=== PATIENT | female | born 1940 | race African-American/Black ===

== ENCOUNTER 2017-03-07 14:23 | Inpatient (IN) | payer MEDICARE, MEDICAID ==
[~2017-03-07] VITALS: Ht 167.6 cm; Wt 61.9 kg
[2017-03-07 15:09] LABS: BASOPHILS % 0.6 % (0.0-2.0); EOSINOPHILS % 0.8 % (0.0-7.0); HEMATOCRIT 43.6 % (37.0-47.0); HEMOGLOBIN 14.3 g/dl (12.0-16.0); LYMPHOCYTES % 27.9 % (15.0-51.0); MEAN CORPUSCULAR HEMOGLOBIN 26.4 pg (29.0-33.0); MEAN CORPUSCULAR HGB CONC 32.8 g/dl (32.0-37.0); MEAN CORPUSCULAR VOLUME 80.6 fl (82.0-101.0); MEAN PLATELET VOLUME 11.5 fl (7.4-10.4); MONOCYTE # 0.3 10^3/ul (0.3-0.9); MONOCYTES % 8.4 % (0.0-11.0); NEUTROPHILS % 62.3 % (39.0-77.0); PLATELET COUNT 156 10^3/UL (140-415); RED BLOOD COUNT 5.41 10^6/ul (4.20-5.40); RED CELL DISTRIBUTION WIDTH 13.6 % (11.5-14.5); WHITE BLOOD COUNT 3.6 10^3/ul (4.8-10.8)
[2017-03-07 15:25] LABS: ANION GAP 14 (8-16); BLOOD UREA NITROGEN 15 mg/dl (7-20); CALCIUM 11.1 mg/dl (8.4-10.2); CARBON DIOXIDE 29 mmol/L (21-31); CHLORIDE 102 mmol/L (97-110); CREATININE 1.06 mg/dl (0.44-1.00); GLUCOSE 138 mg/dl (70-220); INR 0.91; POTASSIUM 4.1 mmol/L (3.5-5.1); PROTIME 12.3 Sec (12.2-14.2); SODIUM 141 mmol/L (135-144)
[2017-03-07 15:26] LABS: PARTIAL THROMBOPLASTIN TIME 29.1 Sec (25.0-35.0)
[2017-03-07 15:37] LABS: TROPONIN-I < 0.012 ng/ml (0.00-0.12)
--- NOTE | 2017-03-07 15:43 | RADRPT ---
PROCEDURE: CT Brain without contrast. CLINICAL INDICATION: Weakness and nonacute stroke TECHNIQUE: A CT of the brain was performed on a [employer] 64-slice CT scanner utilizing axial imaging from the skull base through the vertex without IV contrast. Multiplanar reformatted images were made. Images were reviewed on a PACS workstation. The CTDIvol is 45.01 mGy and the DLP is 720 .23 mGycm. One of the following 3 does reduction techniques were used during this CT examination: 1) Automated exposure control 2) Adjustment of the mA +/- kV according to patient size or 3) Use of iterative reconstruction technique COMPARISON: None available FINDINGS: There is no intracranial hemorrhage, mass effect, or midline shift. No extra-axial fluid collection is seen. The ventricles and sulci are age appropriate. Moderate diffuse volume loss is present. Dec reased attenuation is present in the bilateral centrum semiovale and periventricular white matter co mpatible with moderate chronic microvascular ischemic disease. Mild vascular calcifications are pres ent of the intracranial internal carotid arteries and the vertebral arteries. The visualized scalp and calvarium are normal. The bilateral orbits are normal. The bilateral parana renetta sinuses, mastoid air cells and middle ear cavities are clear. IMPRESSION: 1. No evidence of acute intracranial hemorrhage, infarcts, or acute intracranial pathology. 2. Moderate chronic microvascular ischemic disease and diffuse volume loss. 3. Mild atherosclerotic vascular disease RPTAT: HDC .Samantah Reno MD, MD Date Time Electronically viewed and signed by .Samantha Reno MD, MD on 03/07/2017 15:43 .C/
--- NOTE | 2017-03-07 15:53 | RADRPT ---
PROCEDURE: XR Chest. CLINICAL INDICATION: Dyspnea TECHNIQUE: Single frontal chest x-ray. COMPARISON: None. FINDINGS: No acute infiltrate, pleural effusion or pneumothorax is identified. Cardiomediastinal silhouette i s within normal limits. Aortic atherosclerotic calcification is noted. The osseous structures are r emarkable for degenerative enthesopathy of the spine. IMPRESSION: 1. No evidence of acute cardiopulmonary process. 2. Aortic atherosclerosis. RPTAT: PP .Rivera Alvarado MD, MD Date Time Electronically viewed and signed by .Rivera Alvarado MD, MD on 03/07/2017 15:52 .R/
[2017-03-07] MEDS ORDERED: METF500T4 PO (16:41)
[2017-03-07] MEDS ORDERED: OLME40TA14 PO (16:42)
--- NOTE | 2017-03-07 19:28 | ERA ---
ER Documentation Chief Complaint Date/Time DATE: 03/07/17 TIME: 19:18 Chief Complaint weakness to left leg at 1315 HPI This 77-year-old female is brought in by her daughter via EMS for acute left leg weakness at the same time that she developed confusion. Daughter tried to get her to walk and she could not walk because of the left leg weakness. She feels that his sensory resolved with the daughter still states that she appears somewhat confused. She has had no fevers or chills and denies chest pain shortness of breath. ROS All systems reviewed and are negative except as per history of present illness. Medications Home Meds Reported Medications Olmesartan Medoxomil (Benicar) 40 Mg Tablet, 40 MG PO DAILY, #30 TAB 03/07/17 Metformin Hcl* (Metformin Hcl*) 500 Mg Tablet, 500 MG PO DAILY, #30 TAB 03/07/17 Allergies Allergies: Coded Allergies: No Known Allergy (Unverified , 03/07/17) PMhx/Soc History of Surgery: No Anesthesia Reaction: No Hx 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 Disorder: No Hx Respiratory Disorders: No Hx Cardiac Disorders: Yes (HTN) Hx Psychiatric Problems: No Hx Miscellaneous Medical Probl: Yes (DM) Hx Alcohol Use: No Hx Substance Use: No Hx Tobacco Use: No Smoking Status: Never smoker Physical Exam Vitals Vital Signs Date Time Temp Pulse Resp B/P Pulse Ox O2 Delivery O2 Flow Rate FiO2 03/07/17 14:49 Nasal Cannula 2 03/07/17 14:30 98.5 98 20 163/78 95 Physical Exam Const: [] No acute distress. Head: Atraumatic Eyes: Normal Conjunctiva ENT: Normal External Ears, Nose and Mouth. Neck: Full range of motion..~ No meningismus. Resp: Clear to auscultation bilaterally Cardio: Regular rate and rhythm, no murmurs Abd: Soft, non tender, non distended. Normal bowel sounds Skin: No petechiae or rashes Back: No midline or flank tenderness Ext: No cyanosis, or edema, Distal pulses intact all 4 extremities Neur: Awake and alert and oriented 3, cranial nerves II through XII intact, no cerebellar deficits, normal mental status with ability to remember 3 objects , 5 out of 5 strength all extremities with a NIH stroke scale of 0. Psych: Normal Mood and Affect Result Diagram: 03/07/17 1500 03/07/17 1500 Results 24 hrs Laboratory Tests Test 03/07/17 15:00 White Blood Count 3.610^3/ul Red Blood Count 5.4110^6/ul Hemoglobin 14.3g/dl Hematocrit 43.6% Mean Corpuscular Volume 80.6fl Mean Corpuscular Hemoglobin 26.4pg Mean Corpuscular Hemoglobin Concent 32.8g/dl Red Cell Distribution Width 13.6% Platelet Count 74391^3/UL Mean Platelet Volume 11.5fl Neutrophils % 62.3% Lymphocytes % 27.9% Monocytes % 8.4% Eosinophils % 0.8% Basophils % 0.6% Nucleated Red Blood Cells % 0.0/100WBC Neutrophils # (Manual) 2.210^3/ul Lymphocytes # 1.010^3/ul Monocytes # 0.310^3/ul Eosinophils # 0.010^3/ul Basophils # 0.010^3/ul Nucleated Red Blood Cells # 0.010^3/ul Prothrombin Time 12.3Sec Prothrombin Time Ratio 1.0 INR International Normalized Ratio 0.91 Activated Partial Thromboplast Time 29.1Sec Sodium Level 141mmol/L Potassium Level 4.1mmol/L Chloride Level 102mmol/L Carbon Dioxide Level 29mmol/L Anion Gap 14 Blood Urea Nitrogen 15mg/dl Creatinine 1.06mg/dl Glucose Level 138mg/dl Hemoglobin A1c 6.4% Calcium Level 11.1mg/dl Troponin I < 0.012ng/ml Current Medications Medications (Trade) Dose Ordered Sig/Anisa Route PRN Reason Start Time Stop Time Status Last Admin Dose Admin Ondansetron HCl (Zofran Inj) 4 mg ER BRIDGE PRN IV NAUSEA AND/OR VOMITING 03/07/17 19:30 03/08/17 19:29 Acetaminophen (Tylenol Tab) 650 mg ER BRIDGE PRN PO MILD PAIN/FEVER 03/07/17 19:30 03/08/17 19:29 Procedures/MDM Patient describing symptoms consistent with a TIA. She is stable in the emergency room. Urine is still pending and should be treated for urinary tract infection she has 1 otherwise is currently stable. She will need to be admitted for further neurological workup including MRI which I have already ordered for signs of acute ischemia. Initial CT is negative and the patient was given [address] Hawkins will be admitting to telemetry further monitoring and workup . EKG interpretation: Normal sinus rhythm rate 82, normal axis, no ST or T-wave changes concerning for acute ischemia, normal intervals. Normal EKG except for low voltage electronic device monitor interpretation: Normal sinus rhythm without arrhythmia Chest x-ray interpretation:I see no acute process. I see no widened mediastinum , pneumothorax, no infiltrates, no pulmonary edema, no fractures. CT head interpretation: I see no acute process, see no acute hemorrhage, no mass -effect or midline shift no skull fracture peer Departure Diagnosis: Primary Impression: TIA (transient ischemic attack) Condition: Stable TARAS SHEETS DO Mar 07, 2017 19:28
[2017-03-07] MEDS ORDERED: ONDANSETRON 4 MG INJ IV PRN ×2 (19:30→21:00)
[2017-03-07] MEDS ORDERED: ACETAMINOPHEN 325 MG TAB PO PRN ×2 (19:30→21:00)
[2017-03-07 19:33] LABS: ADD UMIC NO; UR ASCORBIC ACID NEGATIVE (NEGATIVE); UR BILIRUBIN (Dip) NEGATIVE (NEGATIVE); UR BLOOD (Dip) NEGATIVE (NEGATIVE); UR CLARITY CLEAR (CLEAR); UR COLOR YELLOW (YELLOW); UR GLUCOSE (Dip) NEGATIVE (NEGATIVE); UR KETONES (Dip) 1+ mg/dL (NEGATIVE); UR LEUKOCYTE ESTERASE (Dip) NEGATIVE Leu/ul (NEGATIVE); UR NITRITE (Dip) NEGATIVE (NEGATIVE); UR SPECIFIC GRAVITY (Dip) 1.015 (1.003-1.030); UR TOTAL PROTEIN (Dip) NEGATIVE (NEGATIVE); UR UROBILINOGEN (Dip) 2+ mg/dL (NEGATIVE)
[2017-03-07] MEDS ORDERED: ASPIRIN 325 MG TAB PO ONE (20:00)
[2017-03-07] MEDS ORDERED: NACL 0.9% 3 ML SYG IV SCH (21:00)
--- NOTE | 2017-03-07 21:27 | HP ---
Date/Time of Note Date/Time of Note DATE: 03/07/17 TIME: 21:05 Assessment/Plan VTE Prophylaxis VTE Prophylaxis Intervention: SCD's Lines/Catheters IV Catheter Type (from [facility]): [place] [facility] Assessment/Plan Chief Complaint/Hosp Course This is a 77-year-old female being admitted to the telemetry floor for: #1 left leg weakness: Rule out CVA/TIA. CAT scan does not show any acute signs of hemorrhage or infarction. Patient continues to have unsteadiness with her gait. Will order MRI of the brain as well as MRA of the brain and neck without contrast. Will check an echocardiogram with bubble study. Will get a neurology consult. Will check lipid level, and A1c. PT OT and speech evaluation, bedside swallow eval. #2 hypertension: We will allow for permissive hypertension for the first 24 hours. Then resume patient's home medication. #3 diabetes mellitus: Once patient passes swallow study will resume diabetic diet, check hemoglobin A1c, insulin sliding scale #4 dementia: Stable. #5 DVT GI prophylaxis: SCDs, acid natali Further treatment strategy will be implemented as per the clinical course Problems: HPI/ROS Admit Date/Time Admit Date/Time Hx of Present Illness cc: leg weakness, confusion This 77-year-old female is brought in by her daughter via EMS for acute left leg weakness at the same time that she developed confusion. Patient states she was walking while does happen and that she continue to try to walk with her daughter she could not do it because of left leg weakness. She has had no fevers or chills and denies chest pain shortness of breath. Patient was unsteady in her gait when the RNs were helping her to the bathroom. The weakness of the left leg was felt at approximately 1315 on 03/07/1017. allegies: nkda meds: see aug ROS Const: As per HPI Eyes : No pain discharge or redness or change in visual acuity ENT: No pain, sore throat, congestion, congestion, dysphagia or discharge Respiratory: No shortness of breath, cough, sputum, wheezing, or pleuritic pain Cardiovascular: No chest pain, palpitation, PND, or edema GI : no change in appetite, abdominal pain, nausea, vomiting, diarrhea, constipation, or change in the color his stool Genitourinary: No dysuria, hematuria, flank pain , discharge or CVA tenderness Musculoskeletal: No joint pain, back pain, neck pain, restricted range of motion in neck or joints Skin: No rash, bruising or hives Neuro: As per HPI Endocrine: No polyuria, polydipsia, temperature intolerance Psych: No hallucination, depression, anxiety or suicidal ideation PMH/Family/Social Past Medical History Diabetes mellitus, hypertension, dementia Past Surgical History Hysterectomy Family History Significant Family History: no pertinent family hx Social History Alcohol Use: none Smoking Status: Former smoker (Half pack a day 5 year, she quit many years ago ) Drug Use: none Exam/Review of Systems Vital Signs Vitals Vital Signs Date Time Temp Pulse Resp B/P Pulse Ox O2 Delivery O2 Flow Rate FiO2 03/07/17 20:05 61 13 161/64 98 Room Air 03/07/17 14:49 2 03/07/17 14:30 98.5 Exam Exam General: Patient is well-developed well-nourished The patient is alert oriented -3 lying comfortably in bed. HEENT: Atraumatic, normocephalic. The pupils are equal, round and reactive. Extraocular motor are intact Neck: Supple with full range of motion. No rigidity or meningismus Chest: Nontender Lungs: Clear to auscultation bilaterally no crackles rales or wheezing Heart: Normal S1-S2, Regular rhythm and rate. No overt murmurs appreciated Abdomen: Soft , nontender, nondistended , bowel sounds are present. No guarding no rebound tenderness , No masses or organomegaly. No costovertebral temporal angle mass Extremities: Normal to inspection, no edema no cyanosis Neurologic: Alert and oriented 3, cranial nerves II through XII intact, strength appears to be equal of the bilateral lower extremities and equal to bilateral upper extremities. Did not attempt gait as patient earlier try to go to the bathroom with the nurse and she was unsteady. Additional Comments PROCEDURE: CT Brain without contrast. CLINICAL INDICATION: Weakness and nonacute stroke TECHNIQUE: A CT of the brain was performed on a [employer] 64-slice CT scanner utilizing axial imaging from the skull base through the vertex without IV contrast. Multiplanar reformatted images were made. Images were reviewed on a PACS workstation. The CTDIvol is 45.01 mGy and the DLP is 720.23 mGycm. One of the following 3 does reduction techniques were used during this CT examination: 1) Automated exposure control 2) Adjustment of the mA +/- kV according to patient size or 3) Use of iterative reconstruction technique COMPARISON: None available FINDINGS: There is no intracranial hemorrhage, mass effect, or midline shift. No extra- axial fluid collection is seen. The ventricles and sulci are age appropriate. Moderate diffuse volume loss is present. Decreased attenuation is present in the bilateral centrum semiovale and periventricular white matter compatible with moderate chronic microvascular ischemic disease. Mild vascular calcifications are present of the intracranial internal carotid arteries and the vertebral arteries. The visualized scalp and calvarium are normal. The bilateral orbits are normal. The bilateral paranasal sinuses, mastoid air cells and middle ear cavities are clear. IMPRESSION: 1. No evidence of acute intracranial hemorrhage, infarcts, or acute intracranial pathology. 2. Moderate chronic microvascular ischemic disease and diffuse volume loss. 3. Mild atherosclerotic vascular disease RPTAT: HDC .Samantha Reno MD, MD Date Time Electronically viewed and signed by .Samantha Reno MD, MD on 03/07/2017 15: 43 .C/ CC: TARAS SHEETS DO PROCEDURE: XR Chest. CLINICAL INDICATION: Dyspnea TECHNIQUE: Single frontal chest x-ray. COMPARISON: None. FINDINGS: No acute infiltrate, pleural effusion or pneumothorax is identified. Cardiomediastinal silhouette is within normal limits. Aortic atherosclerotic calcification is noted. The osseous structures are remarkable for degenerative enthesopathy of the spine. IMPRESSION: 1. No evidence of acute cardiopulmonary process. 2. Aortic atherosclerosis. RPTAT: PP .Rivera Alvarado MD, MD Date Time Electronically viewed and signed by .Rivera Alvarado MD, MD on 03/07/2017 15: 52 .R/ CC: TARAS SHEETS DOPROCEDURE: CT Brain without contrast. EKG interpretation: Normal sinus rhythm rate 82, normal axis, no ST or T-wave changes concerning for acute ischemia, normal intervals. As per ED physician documentation Labs Result Diagram: 03/07/17 1500 03/07/17 1500 PATRICIA LEVINE Mar 07, 2017 21:15
[2017-03-07 22:26] VITALS: PULSE 58
[2017-03-07 22:30] VITALS: Ht 167.6 cm; Wt 61.9 kg
[2017-03-07] MEDS: SOD CHLORIDE 0.9% 1,000 ML IV SCH (22:54)
[2017-03-07] MEDS ORDERED: LORAZEPAM 2 MG INJ IV ONE (23:00)
[2017-03-07] MEDS ORDERED: ALPRAZOLAM 0.25 MG TAB PO ONE (23:00)
[2017-03-07 23:26] VITALS: BP 201/90; RESP 17
[2017-03-08] VITALS (12 sets, daily range): BP systolic 145–179; BP diastolic 75–95; PULSE 40–97; RESP 17–20
[2017-03-08] MEDS ORDERED: MAGNESIUM HYDROXIDE 30ML CUP PO PRN (01:30)
[2017-03-08] MEDS: ACCU-CHEK XX SCH ×2 (02:00)
[2017-03-08] MEDS ORDERED: GLUCAGON 1 MG INJ IM PRN (02:30)
[2017-03-08] MEDS ORDERED: GLUCOSE GEL 15 GRAM TUBE PO PRN ×2 (02:30)
[2017-03-08] MEDS ORDERED: DEXTROSE 50% 50 ML SYRINGE IV PRN ×2 (02:30)
[2017-03-08] MEDS ORDERED: GLUCOSE GEL 15 GRAM TUBE BUCCAL PRN (02:30)
[2017-03-08] MEDS ORDERED: PANTOPRAZOLE 40 MG INJ IV SCH (06:00)
[2017-03-08 07:44] LABS: BASOPHILS % 0.7 % (0.0-2.0); EOSINOPHILS # 0.1 10^3/ul (0.0-0.5); HEMATOCRIT 38.7 % (37.0-47.0); HEMOGLOBIN 12.7 g/dl (12.0-16.0); LYMPHOCYTES # 1.3 10^3/ul (0.8-2.9); LYMPHOCYTES % 43.6 % (15.0-51.0); MEAN CORPUSCULAR HEMOGLOBIN 26.5 pg (29.0-33.0); MEAN CORPUSCULAR HGB CONC 32.8 g/dl (32.0-37.0); MEAN CORPUSCULAR VOLUME 80.6 fl (82.0-101.0); MEAN PLATELET VOLUME 11.5 fl (7.4-10.4); MONOCYTE # 0.3 10^3/ul (0.3-0.9); MONOCYTES % 8.9 % (0.0-11.0); NEUTROPHILS % 43.5 % (39.0-77.0); PLATELET COUNT 145 10^3/UL (140-415); RED CELL DISTRIBUTION WIDTH 13.5 % (11.5-14.5); WHITE BLOOD COUNT 3.1 10^3/ul (4.8-10.8)
[2017-03-08] MEDS: INSULIN ASPART [NOVOLOG] 3 ML PEN SC SCH ×4 (08:00→21:00)
[2017-03-08 08:21] LABS: ALBUMIN 3.4 g/dl (3.3-4.9); ALBUMIN/GLOBULIN RATIO 1.25; BILIRUBIN,INDIRECT 0.7 mg/dl (0-1.1); BILIRUBIN,TOTAL 0.7 mg/dl (0.2-1.3); CALCIUM 10.2 mg/dl (8.4-10.2); CHOL/HDL RATIO 4.6 RATIO; CREATININE 0.91 mg/dl (0.44-1.00); POTASSIUM 3.5 mmol/L (3.5-5.1); TOTAL PROTEIN 6.1 g/dl (6.1-8.1)
[2017-03-08] MEDS: DOCUSATE SODIUM 100 MG CAP PO SCH ×2 (08:36→21:00)
[2017-03-08 08:46] LABS: THYROID STIMULATING HORMONE 1.5 MIU/L (0.465-4.680)
--- NOTE | 2017-03-08 11:49 | CONS ---
Date/Time of Note Date/Time of Note DATE: 03/08/17 TIME: 11:43 Assessment/Plan Assessment/Plan Chief Complaint/Hosp Course 77 yo female with history of HTN, DM, cognitive decline, urinary incontinence, p /w increased LLE weakness. Exam concerning for left arm weakness as well, further studies pending to rule out acute CVA. Recommendations; MRI Brain without contrast MRA Head/Neck without contrast ASA 81 mg daily SBP <140/90 Check FLP and HBA1C ECHO DVT ppx PT/OT/Speech resume home medications discussed w daughter at bedside- if MRI imaging concerning for NPH and no acute CVA will pursue further NPH work up as inpatient Problems: Consultation Date/Type/Reason Admit Date/Time 03/08/17 Date of Consultation: Mar 08, 2017 Type of Consultation: Neurology Reason for Consultation eval for poss CVA Referring Provider: PATRICIA LEVINE Hx of Present Illness 77 year old female with history of hypercalcemia, DM, fall a couple years ago with residual issues with her LLE, recent cognitive decline diagnosed with PETTY, ADHD, major depressive disorder p/w left leg weakness and fall after coming out of the bathroom. Per daughter she has also had urinary incontinence over the past 2 months. She was seen by an outpatient neurologist an MRI Brain was ordered- suggestive of enlarged ventricles however clinically not felt to be consistent with NPH consultation was April 2016. EEG was also done: normal. Social History Alcohol Use: none Smoking Status: Former smoker (Half pack a day 5 year, she quit many years ago ) Drug Use: none Exam/Review of Systems Vital Signs Vitals Vital Signs Date Time Temp Pulse Resp B/P Pulse Ox O2 Delivery O2 Flow Rate FiO2 03/08/17 08:14 65 03/08/17 08:14 98.1 20 165/77 98 03/08/17 06:52 Room Air 03/07/17 14:49 2 Intake and Output 03/07/17 03/07/17 03/08/17 14:59 22:59 06:59 Intake Total 250 ml Balance 250 ml Exam awake and alert NAD oriented to self daughter date says its August 06 2016 able to re orient masked facies flat affect CN: AFSHAN, VFF EOMI no nystagmus palate upgoing uvula midline scm/trap intact Motor: right UE and Right LE 5/5 Left UE 4/5 strength in building code administrator LLE 5-/5 Sensory intact throughout Coordination: right FTN intact left is slower than right no ataxia Reflexes 1+ throughout Results Result Diagram: 03/08/17 0704 03/08/17 0704 Results 24 hrs Laboratory Tests Test 03/07/17 15:00 03/07/17 19:15 03/08/17 07:04 03/08/17 07:50 White Blood Count 3.6 L 3.1 L Red Blood Count 5.41 H 4.80 Hemoglobin 14.3 12.7 Hematocrit 43.6 38.7 Mean Corpuscular Volume 80.6 L 80.6 L Mean Corpuscular Hemoglobin 26.4 L 26.5 L Mean Corpuscular Hemoglobin Concent 32.8 32.8 Red Cell Distribution Width 13.6 13.5 Platelet Count 156 145 Mean Platelet Volume 11.5 H 11.5 H Neutrophils % 62.3 43.5 Lymphocytes % 27.9 43.6 Monocytes % 8.4 8.9 Eosinophils % 0.8 3.0 Basophils % 0.6 0.7 Nucleated Red Blood Cells % 0.0 0.0 Neutrophils # (Manual) 2.2 1.3 L Lymphocytes # 1.0 1.3 Monocytes # 0.3 0.3 Eosinophils # 0.0 0.1 Basophils # 0.0 0.0 Nucleated Red Blood Cells # 0.0 0.0 Prothrombin Time 12.3 Prothrombin Time Ratio 1.0 INR International Normalized Ratio 0.91 Activated Partial Thromboplast Time 29.1 Sodium Level 141 139 Potassium Level 4.1 3.5 Chloride Level 102 104 Carbon Dioxide Level 29 31 Anion Gap 14 8 Blood Urea Nitrogen 15 14 Creatinine 1.06 H 0.91 Glucose Level 138 95 # Hemoglobin A1c 6.4 H 6.5 H Calcium Level 11.1 H 10.2 Troponin I < 0.012 Urine Color YELLOW Urine Clarity CLEAR Urine pH 7.0 Urine Specific [place] 1.015 Urine Ketones 1+ H Urine Nitrite NEGATIVE Urine Bilirubin NEGATIVE Urine Urobilinogen 2+ H Urine Leukocyte Esterase NEGATIVE Urine Hemoglobin NEGATIVE Urine Glucose NEGATIVE Urine Total Protein NEGATIVE Total Bilirubin 0.7 Direct Bilirubin 0.00 Indirect Bilirubin 0.7 Aspartate Amino Transf (AST/SGOT) 20 Alanine Aminotransferase (ALT/SGPT) 24 Alkaline Phosphatase 50 Total Protein 6.1 Albumin 3.4 Globulin 2.70 Albumin/Globulin Ratio 1.25 Triglycerides Level 92 Cholesterol Level 199 LDL Cholesterol, Calculated 138 HDL Cholesterol 43 Cholesterol/HDL Ratio 4.6 Thyroid Stimulating Hormone (TSH) 1.500 Bedside Glucose 104 Medications Medications Current Medications Sodium Chloride (NS) 1,000 ml @ 60 mls/hr [id number] IV Last administered on 03/07 22:54; Admin Dose 60 MLS/HR; Start 03/07/17 at 21:00 Ondansetron HCl (Zofran Inj) 4 mg Q6H PRN IV NAUSEA AND/OR VOMITING; Start 04/13 at 21:00 Acetaminophen (Tylenol Tab) 650 mg Q6H PRN PO PAIN LEVEL 1-3 OR FEVER; Start at 21:00 Pantoprazole (Protonix Iv) 40 mg DAILY@06 IV Last administered on 03/08/17 06: 09; Admin Dose 40 MG; Start 03/08/17 at 06:00 Hydralazine HCl (Apresoline) 10 mg Q4H PRN IV ELEVATED BLOOD PRESSURE; Start at 01:00 Docusate Sodium (Colace) 100 mg BID PO Last administered on 03/08/17 08:36; Admin Dose 100 MG; Start 03/08/17 at 09:00 Magnesium Hydroxide (Milk Of Mag) 30 ml DAILY PRN PO CONSTIPATION Last administered on 03/08/17 06:09; Admin Dose 30 ML; Start 03/08/17 at 01:30 Diagnostic Test (Pha) (Accu-Chek) 1 ea 02 XX ; Start 03/08/17 at 02:00 Diagnostic Test (Pha) (Accu-Chek) 1 ea 02 XX ; Start 03/08/17 at 02:00 Miscellaneous Information 1 ea NOTE XX ; Start 03/08/17 at 02:30 Glucose (Glutose) 15 gm Q15M PRN PO DECREASED GLUCOSE; Start 03/08/17 at 02:30 Glucose (Glutose) 22.5 gm Q15M PRN PO DECREASED GLUCOSE; Start 03/08/17 at 02: 30 Dextrose (D50w Syringe) 25 ml Q15M PRN IV DECREASED GLUCOSE; Start 03/08/17 at 02:30 Dextrose (D50w Syringe) 50 ml Q15M PRN IV DECREASED GLUCOSE; Start 03/08/17 at 02:30 Glucagon (Glucagen) 1 mg Q15M PRN IM DECREASED GLUCOSE; Start 03/08/17 at 02:30 Glucose (Glutose) 15 gm Q15M PRN BUCCAL DECREASED GLUCOSE; Start 03/08/17 at 02 :30 CLARK GORE MD Mar 08, 2017 11:48
[2017-03-08] MEDS: hydrALAzine 20 MG INJ IV PRN (15:53)
[2017-03-08] MEDS: SOD CHLORIDE 0.9% 1,000 ML IV SCH (15:53)
--- NOTE | 2017-03-08 16:14 | PN ---
Date/Time of Note Date/Time of Note DATE: 03/08/17 TIME: 16:07 Assessment/Plan VTE Prophylaxis VTE Prophylaxis Intervention: LMWH Lines/Catheters [facility]from [facility] Peripheral IV Urinary Cath still in place: No Assessment/Plan Assessment/Plan 1. left leg weakness: follow up with MRI/MRA, on aspirin and lipitor 2 . hypertension: start lisinopril 3. diabetes mellitus: insulin sliding scale 4. dementia: Stable. 5. DVT prophylaxis lovenox Subjective 24 Hr Interval Summary Free Text/Dictation no weakness today Exam/Review of Systems Vital Signs Vitals Vital Signs Date Time Temp Pulse Resp B/P Pulse Ox O2 Delivery O2 Flow Rate FiO2 03/08/17 12:15 89 03/08/17 12:09 98.3 20 157/75 96 03/08/17 06:52 Room Air 03/07/17 14:49 2 Intake and Output 03/07/17 03/07/17 03/08/17 15:00 23:00 07:00 Intake Total 250 ml Balance 250 ml Exam Constitutional: alert, oriented, well developed Psych: nl mood/affect, no complaints Head: atraumatic, normocephalic Eyes: EOMI, PERRL, nl conjunctiva, nl lids ENMT: nl external ears & nose, nl lips & teeth, nl nasal mucosa & septum Neck: non-tender, supple Respiratory: clear to auscultation, normal air movement, No congested cough, No crackles/rales, No diminished breath sounds, No intercostal retraction, No labored breathing, No other, No respirations, No tactile fremitus, No wheezing Cardiovascular: nl pulses, regular rate and rhythm, No S3, No S4, No bruits, No diastolic murmur, No edema, No gallop, No irregular rhythm, No jugular venous distention (JVD), No murmurs/extra sounds, No other, No rub, No systolic murmur Gastrointestinal: nl liver, spleen, non-tender, soft, No ascites, No bowel sounds, No distended, No firm, No hepatomegaly, No mass , No other, No rebound or guarding, No splenomegaly, No surgical scars, No tender Musculoskeletal: nl extremities to inspection Extremities: normal pulses, No calf tenderness, No clubbing, No cyanosis, No edema, No other, No palpable cord, No pitting pedal edema, No tenderness 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: ORACLE ADF DEVELOPER II-XII intact, nl mental status, nl speech, nl strength Results Result Diagram: 03/08/17 0704 03/08/17 0704 Results 24 hrs Laboratory Tests Test 03/07/17 19:15 03/08/17 07:04 03/08/17 07:50 03/08/17 11:51 Urine Color YELLOW Urine Clarity CLEAR Urine pH 7.0 Urine Specific [place] 1.015 Urine Ketones 1+ H Urine Nitrite NEGATIVE Urine Bilirubin NEGATIVE Urine Urobilinogen 2+ H Urine Leukocyte Esterase NEGATIVE Urine Hemoglobin NEGATIVE Urine Glucose NEGATIVE Urine Total Protein NEGATIVE White Blood Count 3.1 L Red Blood Count 4.80 Hemoglobin 12.7 Hematocrit 38.7 Mean Corpuscular Volume 80.6 L Mean Corpuscular Hemoglobin 26.5 L Mean Corpuscular Hemoglobin Concent 32.8 Red Cell Distribution Width 13.5 Platelet Count 145 Mean Platelet Volume 11.5 H Neutrophils % 43.5 Lymphocytes % 43.6 Monocytes % 8.9 Eosinophils % 3.0 Basophils % 0.7 Nucleated Red Blood Cells % 0.0 Neutrophils # (Manual) 1.3 L Lymphocytes # 1.3 Monocytes # 0.3 Eosinophils # 0.1 Basophils # 0.0 Nucleated Red Blood Cells # 0.0 Sodium Level 139 Potassium Level 3.5 Chloride Level 104 Carbon Dioxide Level 31 Anion Gap 8 Blood Urea Nitrogen 14 Creatinine 0.91 Glucose Level 95 # Hemoglobin A1c 6.5 H Calcium Level 10.2 Total Bilirubin 0.7 Direct Bilirubin 0.00 Indirect Bilirubin 0.7 Aspartate Amino Transf (AST/SGOT) 20 Alanine Aminotransferase (ALT/SGPT) 24 Alkaline Phosphatase 50 Total Protein 6.1 Albumin 3.4 Globulin 2.70 Albumin/Globulin Ratio 1.25 Triglycerides Level 92 Cholesterol Level 199 LDL Cholesterol, Calculated 138 HDL Cholesterol 43 Cholesterol/HDL Ratio 4.6 Thyroid Stimulating Hormone (TSH) 1.500 Bedside Glucose 104 112 Medications Medications Current Medications Sodium Chloride (NS) 1,000 ml @ 60 mls/hr [id number] IV Last administered on 03/08t 15:53; Admin Dose 60 MLS/HR; Start 03/07/17 at 21:00 Ondansetron HCl (Zofran Inj) 4 mg Q6H PRN IV NAUSEA AND/OR VOMITING; Start 04/13 at 21:00 Acetaminophen (Tylenol Tab) 650 mg Q6H PRN PO PAIN LEVEL 1-3 OR FEVER; Start at 21:00 Hydralazine HCl (Apresoline) 10 mg Q4H PRN IV ELEVATED BLOOD PRESSURE Last administered on 03/08/17 15:53; Admin Dose 10 MG; Start 03/08/17 at 01:00 Docusate Sodium (Colace) 100 mg BID PO Last administered on 03/08/17 08:36; Admin Dose 100 MG; Start 03/08/17 at 09:00 Magnesium Hydroxide (Milk Of Mag) 30 ml DAILY PRN PO CONSTIPATION Last administered on 03/08/17 06:09; Admin Dose 30 ML; Start 03/08/17 at 01:30 Diagnostic Test (Pha) (Accu-Chek) 1 ea 02 XX ; Start 03/08/17 at 02:00 Diagnostic Test (Pha) (Accu-Chek) 1 ea 02 XX ; Start 03/08/17 at 02:00 Miscellaneous Information 1 ea NOTE XX ; Start 03/08/17 at 02:30 Glucose (Glutose) 15 gm Q15M PRN PO DECREASED GLUCOSE; Start 03/08/17 at 02:30 Glucose (Glutose) 22.5 gm Q15M PRN PO DECREASED GLUCOSE; Start 03/08/17 at 02: 30 Dextrose (D50w Syringe) 25 ml Q15M PRN IV DECREASED GLUCOSE; Start 03/08/17 at 02:30 Dextrose (D50w Syringe) 50 ml Q15M PRN IV DECREASED GLUCOSE; Start 03/08/17 at 02:30 Glucagon (Glucagen) 1 mg Q15M PRN IM DECREASED GLUCOSE; Start 03/08/17 at 02:30 Glucose (Glutose) 15 gm Q15M PRN BUCCAL DECREASED GLUCOSE; Start 03/08/17 at 02 :30 Pantoprazole (Protonix Tab) 40 mg DAILY@06 PO ; Start 03/09/17 at 06:00 AMY ANGEL MD Mar 08, 2017 16:14
[2017-03-08] MEDS: LISINOPRIL 10 MG TAB PO SCH (16:30)
--- NOTE | 2017-03-08 18:29 | RADRPT ---
PROCEDURE: MRA of the Brain. CLINICAL INDICATION: Neurologic deficit TECHNIQUE: An MRI of the brain was performed on a 1.5 jenae scanner utilizing the following sequen zach: 3-D [id number] images through the cerebrovascular vasculature were obtained. Images were reviewed on a high-resolution PACS workstation. COMPARISON: No prior studies are available for comparison. FINDINGS: MRA of the BRAIN: Exam is limited secondary to motion artifact. The bilateral internal carotid arteries, anterior and middle cerebral arteries are otherwise unremarkable in course and caliber. The anterior communicat ing artery is intact. origin of the right posterior cerebral artery is seen which is a normal variant. The distal vertebral arteries, basilar artery, basilar tip, and bilateral posterior cerebr al arteries are otherwise unremarkable. No evidence of an aneurysm or vascular malformation is seen . No hemodynamically significant stenosis or occlusion is seen. IMPRESSION: 1. Limited examination secondary to motion artifact. 2. Otherwise, no definite hemodynamically significant stenosis. RPTAT: HPNM Physician Jyothi Date Time Electronically viewed and signed by Physician Jyothi on 03/08/2017 18:28 /
--- NOTE | 2017-03-08 18:38 | RADRPT ---
PROCEDURE: MR Brain without contrast. CLINICAL INDICATION: Left leg weakness which has resolved with persistent confusion. TECHNIQUE: An MRI of the brain was performed on a 1.5 jenae scanner utilizing the following sequen zach: Sagittal T1 weighted, axial T2 weighted, axial FLAIR, coronal GRE, and axial diffusion weighted with ADC mapping. COMPARISON: CT brain 03/07/2017 FINDINGS: No evidence of restricted diffusion to suggest acute or early subacute ischemic infarction. There i s no evidence of intracranial hemorrhage, mass effect, or midline shift. No extra-axial fluid collec tions are seen. No hypointense signal abnormalities are seen on the GRE images to suggest the presence of blood degr adation products. Scattered nonspecific FLAIR/T2 signal hyperintensity foci in the subcortical and p eriventricular white matter compatible with sequelae of moderate chronic microvascular ischemic dise ase. Diffuse central cerebral and cerebellar volume loss with frontotemporal predominance asymmetric to t he right . Marked ventriculomegaly asymmetric to the right. The posterior fossa contents, brainstem, seventh - eighth cranial nerve complexes, pituitary axis, o rbits, paranasal sinuses, and mastoid air cells are unremarkable. Normal flow voids are visible in the proximal intracranial arteries and dural sinuses, indicating pa tency. IMPRESSION: 1. No acute or early subacute ischemic infarction or intracranial hemorrhage. 2. Moderate chronic microvascular ischemic disease with marked diffuse central cerebral and cerebell ar volume loss. RPTAT:AAJJ Physician Francois Date Time Electronically viewed and signed by Physician Francois on 03/08/2017 18:38 YG/
--- NOTE | 2017-03-08 18:47 | RADRPT ---
PROCEDURE: MRA Neck without contrast. CLINICAL INDICATION: TIA TECHNIQUE: An MRA of the major cervical arteries was performed on the 1.5 jenae scanner utilizing axial 2D time of flight. No IV contrast was given as ordered. Source and MIPPED images were reviewe d. Carotid stenosis is calculated in accordance with NASCET criteria guidelines with direct measurem ents of the narrowest segment of stenosis compared with distal luminal diameter of the normal distal extracranial internal carotid artery. COMPARISON: No prior studies are available for comparison. FINDINGS: The common carotid arteries are patent and normal in caliber. The right carotid bulb appears grossly normal in caliber . Short 6 mm segment of irregularity along the proximal left internal carotid art qing bulb likely reflecting atherosclerotic plaque without evidence of a hemodynamically significant narrowing or stenosis. The distal internal carotid arteries appear patent and normal in caliber. The external carotid arteries and their branches are patent and normal in caliber. Dominant right verte bral artery. The left vertebral artery is hypoplastic but otherwise patent. There is no evidence of vascular stenosis or occlusion. IMPRESSION: 1. No right carotid stenosis. 2. Short segment of irregularity compatible with atherosclerotic plaque along the proximal left int ernal carotid artery bulb without hemodynamically significant stenosis. 3. Dominant right vertebral artery with hypoplastic left vertebral artery. RPTAT:AAJJ Physician Francois Date Time Electronically viewed and signed by Physician Francois on 03/08/2017 18:46 YG/
[2017-03-08] MEDS: ATORVASTATIN 10 MG TAB PO SCH (21:59)
[2017-03-09] VITALS (10 sets, daily range): BP systolic 144–192; BP diastolic 70–85; PULSE 52–80; RESP 17–18
[2017-03-09] MEDS: ACCU-CHEK XX SCH ×2 (02:00)
[2017-03-09] MEDS: PANTOPRAZOLE (EC) 40 MG TAB PO SCH (06:07)
[2017-03-09] MEDS: SOD CHLORIDE 0.9% 1,000 ML IV SCH ×2 (06:20→14:39)
[2017-03-09] MEDS: INSULIN ASPART [NOVOLOG] 3 ML PEN SC SCH ×4 (08:00→21:00)
[2017-03-09] MEDS: LISINOPRIL 10 MG TAB PO SCH (08:57)
[2017-03-09] MEDS: DOCUSATE SODIUM 100 MG CAP PO SCH ×2 (09:00→21:00)
--- NOTE | 2017-03-09 11:42 | PN ---
Date/Time of Note Date/Time of Note DATE: 03/09/17 TIME: 11:38 Assessment/Plan VTE Prophylaxis VTE Prophylaxis Intervention: LMWH Lines/Catheters [facility] Type (from [facility] Peripheral IV Urinary Cath still in place: No Assessment/Plan Assessment/Plan 1. left leg weakness, no acute changes on MRI, on aspirin and lipitor 2 . hypertension: start lisinopril 3. diabetes mellitus: insulin sliding scale 4. dementia: Stable. 5. DVT prophylaxis lovenox 6. R/o normal pressure hydrocephalus, discussed with neurologist today, talked with the daughter, will try LP to release 30 cc CSF Subjective 24 Hr Interval Summary Free Text/Dictation weakness generally Exam/Review of Systems Vital Signs Vitals Vital Signs Date Time Temp Pulse Resp B/P Pulse Ox O2 Delivery O2 Flow Rate FiO2 03/09/17 11:35 98.7 79 18 161/70 97 03/08/17 06:52 Room Air 03/07/17 14:49 2 Intake and Output 03/08/17 03/08/17 03/09/17 15:00 23:00 07:00 Intake Total 480 ml 400 ml 500 ml Balance 480 ml 400 ml 500 ml Exam Constitutional: alert, oriented, well developed Psych: nl mood/affect, no complaints Head: atraumatic, normocephalic Eyes: EOMI, PERRL, nl conjunctiva, nl lids ENMT: nl external ears & nose, nl lips & teeth, nl nasal mucosa & septum Neck: non-tender, supple Respiratory: clear to auscultation, normal air movement, No congested cough, No crackles/rales, No diminished breath sounds, No intercostal retraction, No labored breathing, No other, No respirations, No tactile fremitus, No wheezing Cardiovascular: nl pulses, regular rate and rhythm, No S3, No S4, No bruits, No diastolic murmur, No edema, No gallop, No irregular rhythm, No jugular venous distention (JVD), No murmurs/extra sounds, No other, No rub, No systolic murmur Gastrointestinal: nl liver, spleen, non-tender, soft, No ascites, No bowel sounds, No distended, No firm, No hepatomegaly, No mass , No other, No rebound or guarding, No splenomegaly, No surgical scars, No tender Musculoskeletal: nl extremities to inspection Extremities: normal pulses, No calf tenderness, No clubbing, No cyanosis, No edema, No other, No palpable cord, No pitting pedal edema, No tenderness 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: NICKER AND BREAKER II-XII intact, nl mental status, nl speech Skin: nl turgor Results Result Diagram: 03/08/17 0704 03/08/17 0704 Results 24 hrs Laboratory Tests Test 03/08/17 11:51 03/08/17 18:56 03/08/17 21:58 03/09/17 08:41 Bedside Glucose 112 138 153 126 Medications Medications Current Medications Sodium Chloride (NS) 1,000 ml @ 60 mls/hr [id number] IV Last administered on 03/08 15:53; Admin Dose 60 MLS/HR; Start 03/07/17 at 21:00 Ondansetron HCl (Zofran Inj) 4 mg Q6H PRN IV NAUSEA AND/OR VOMITING; Start 04/13 at 21:00 Acetaminophen (Tylenol Tab) 650 mg Q6H PRN PO PAIN LEVEL 1-3 OR FEVER; Start at 21:00 Hydralazine HCl (Apresoline) 10 mg Q4H PRN IV ELEVATED BLOOD PRESSURE Last administered on 03/08/17 15:53; Admin Dose 10 MG; Start 03/08/17 at 01:00 Docusate Sodium (Colace) 100 mg BID PO Last administered on 03/08/17 08:36; Admin Dose 100 MG; Start 03/08/17 at 09:00 Magnesium Hydroxide (Milk Of Mag) 30 ml DAILY PRN PO CONSTIPATION Last administered on 03/08/17 06:09; Admin Dose 30 ML; Start 03/08/17 at 01:30 Diagnostic Test (Pha) (Accu-Chek) 1 ea 02 XX ; Start 03/08/17 at 02:00 Diagnostic Test (Pha) (Accu-Chek) 1 ea 02 XX ; Start 03/08/17 at 02:00 Miscellaneous Information 1 ea NOTE XX ; Start 03/08/17 at 02:30 Glucose (Glutose) 15 gm Q15M PRN PO DECREASED GLUCOSE; Start 03/08/17 at 02:30 Glucose (Glutose) 22.5 gm Q15M PRN PO DECREASED GLUCOSE; Start 9/11/17 at 02: 30 Dextrose (D50w Syringe) 25 ml Q15M PRN IV DECREASED GLUCOSE; Start 03/08/17 at 02:30 Dextrose (D50w Syringe) 50 ml Q15M PRN IV DECREASED GLUCOSE; Start 03/08/17 at 02:30 Glucagon (Glucagen) 1 mg Q15M PRN IM DECREASED GLUCOSE; Start 03/08/17 at 02:30 Glucose (Glutose) 15 gm Q15M PRN BUCCAL DECREASED GLUCOSE; Start 03/08/17 at 02 :30 Pantoprazole (Protonix Tab) 40 mg DAILY@06 PO Last administered on 03/09/17 06 :07; Admin Dose 40 MG; Start 03/09/17 at 06:00 Atorvastatin Calcium (Lipitor) 10 mg HS PO Last administered on 03/08/17 21:59 ; Admin Dose 10 MG; Start 03/08/17 at 21:00 Lisinopril (Zestril) 10 mg DAILY PO Last administered on 03/09/17 08:57; Admin Dose 10 MG; Start 03/08/17 at 16:30 AMY ANGEL MD Mar 09, 2017 11:42
--- NOTE | 2017-03-09 11:55 | CONS ---
Date/Time of Note Date/Time of Note DATE: 03/09/17 TIME: 11:51 Consult Date/Type/Reason Admit Date/Time Mar 07, 2017 at 19:04 Initial Consult Date 03/08/17 Type of Consultation: Neurology Reason for Consultation r/o CVA, NPH Ordering Provider: PATRICIA LEVINE Subjective remains stable overnight MRI done shoes no evidence of acute infarct Objective Vital Signs Date Time Temp Pulse Resp B/P Pulse Ox O2 Delivery O2 Flow Rate FiO2 03/09/17 11:35 98.7 79 18 161/70 97 03/08/17 06:52 Room Air 03/07/17 14:49 2 Intake and Output 03/08/17 03/08/17 03/09/17 15:00 23:00 07:00 Intake Total 480 ml 400 ml 500 ml Balance 480 ml 400 ml 500 ml Exam awake and alert NAD oriented to self daughter date says its August 06 2016 able to re orient masked facies flat affect CN: AFSHAN, VFF EOMI no nystagmus palate upgoing uvula midline scm/trap intact Motor: right UE and Right LE 5/5 Left UE 4/5 strength in device engineer LLE 5-/5 Sensory intact throughout Coordination: right FTN intact left is slower than right no ataxia Reflexes 1+ throughout Results/Medications Result Diagram: 03/08/17 0704 03/08/17 0704 Results 24 hrs Laboratory Tests Test 03/08/17 18:56 03/08/17 21:58 03/09/17 08:41 03/09/17 11:46 Bedside Glucose 138 153 126 124 Medications Current Medications Sodium Chloride (NS) 1,000 ml @ 60 mls/hr [id number] IV Last administered on 03/08 15:53; Admin Dose 60 MLS/HR; Start 03/07/17 at 21:00 Ondansetron HCl (Zofran Inj) 4 mg Q6H PRN IV NAUSEA AND/OR VOMITING; Start 04/13 at 21:00 Acetaminophen (Tylenol Tab) 650 mg Q6H PRN PO PAIN LEVEL 1-3 OR FEVER; Start at 21:00 Hydralazine HCl (Apresoline) 10 mg Q4H PRN IV ELEVATED BLOOD PRESSURE Last administered on 03/08/17 15:53; Admin Dose 10 MG; Start 03/08/17 at 01:00 Docusate Sodium (Colace) 100 mg BID PO Last administered on 03/08/17 08:36; Admin Dose 100 MG; Start 03/08/17 at 09:00 Magnesium Hydroxide (Milk Of Mag) 30 ml DAILY PRN PO CONSTIPATION Last administered on 03/08/17 06:09; Admin Dose 30 ML; Start 03/08/17 at 01:30 Diagnostic Test (Pha) (Accu-Chek) 1 ea 02 XX ; Start 03/08/17 at 02:00 Diagnostic Test (Pha) (Accu-Chek) 1 ea 02 XX ; Start 03/08/17 at 02:00 Miscellaneous Information 1 ea NOTE XX ; Start 03/08/17 at 02:30 Glucose (Glutose) 15 gm Q15M PRN PO DECREASED GLUCOSE; Start 03/08/17 at 02:30 Glucose (Glutose) 22.5 gm Q15M PRN PO DECREASED GLUCOSE; Start 03/08/17 at 02: 30 Dextrose (D50w Syringe) 25 ml Q15M PRN IV DECREASED GLUCOSE; Start 03/08/17 at 02:30 Dextrose (D50w Syringe) 50 ml Q15M PRN IV DECREASED GLUCOSE; Start 03/08/17 at 02:30 Glucagon (Glucagen) 1 mg Q15M PRN IM DECREASED GLUCOSE; Start 03/08/17 at 02:30 Glucose (Glutose) 15 gm Q15M PRN BUCCAL DECREASED GLUCOSE; Start 03/08/17 at 02 :30 Pantoprazole (Protonix Tab) 40 mg DAILY@06 PO Last administered on 03/09/17 06 :07; Admin Dose 40 MG; Start 03/09/17 at 06:00 Atorvastatin Calcium (Lipitor) 10 mg HS PO Last administered on 03/08/17 21:59 ; Admin Dose 10 MG; Start 03/08/17 at 21:00 Lisinopril (Zestril) 20 mg DAILY PO ; Start 03/10/17 at 09:00 Assessment/Plan Chief Complaint/Hosp Course 77 yo female with history of HTN, DM, cognitive decline, urinary incontinence, p /w increased LLE weakness. Exam concerning for left arm weakness as well. MRI Brain: Diffuse central cerebral and cerebellar volume loss with frontotemporal predominance asymmetric to the right . Marked ventriculomegaly asymmetric to the right. Recommendations; Would recommend Diagnostic LP to evaluate for NPH- recommend LP may send Cell Count, Cultures, Basic labs Protein Glucose Recommend checking pressure as well as removal of atleast 25-30 cc of fluid ASA 81 mg daily SBP <140/90 LDL: 138, HBA1C: 6.5% optimize risk factors for secondary stroke prevention, c/ w statin on low dose Lipitor DVT ppx PT/OT/Speech resume home medications discussed w daughter at bedside- if MRI imaging concerning for NPH and no acute CVA will pursue further NPH work up as inpatient Problems: CLARK GORE MD Mar 09, 2017 11:55
--- NOTE | 2017-03-09 17:05 | RADRPT ---
Echocardiogram Report Patient Name: LEONILA GERONIMO Gender: Female Date: 1940 Study Date: 08-Mar-2017 Report Developer: Gerald [facility] Location: [id number] Ref. Physician: PATRICIA LEVINE Quality: Adequate Procedures: Transthoracic echocardiogram with complete 2D, M-Mode, and doppler examination. Indications: Rule out cva/tia. 2D/M Mode Doppler Measurement Value Normal Ranges Measurement Value Normal Ranges LVIDd 2D 3.0 3.5 - 5.6 cm AV Peak Jase 1.2 m/sec LVIDs 2D 1.9 2.1 - 4.1 cm AV Peak PG 6.0 mmHg FS 2D 38.0 % LVOT Peak Jase 0.7 m/sec LVPWd 2D 1.7 0.6 - 1.1 cm LVOT Peak PG 2.0 mmHg IVSd 2D 1.6 0.6 - 1.1 cm MV E Peak Jase 0.5 m/sec IVS/LVPW 2D 1.0 MV A Peak Jase 0.8 m/sec AoR Diam 2D 2.6 2.0 - 3.7 cm MV E/A 0.6 LA/Ao 2D 1 0 - 1 MV Decel Time 236 msec EDV 2D 27.8 cm3 MV E/A 0.6 ESV 2D 6.6 cm3 LA Dimen 2D 2.5 2.3 - 4.0 cm Findings Left Ventricle: Normal left ventricular systolic function. Normal left ventricular cavity size. Moderate to severe concentric left ventricular hypertrophy. Ejection fraction is visually estimated at 65 %. Tissue Doppler/Mitral Doppler indices are consistent with impaired relaxation (Stage I diastolic dysfunction). Right Ventricle: Normal right ventricular size. Normal right ventricular systolic function. Left Atrium: The left atrium is normal in size. Right Atrium: The right atrium is normal in size. Atrial Septum: Bubble study was performed indicating no evidence of intra atrial shunt. Mitral Valve: Mitral valve leaflets appear mildly thickened. Mild mitral annular calcification. Trace mitral regurgitation. Aortic Valve: Normal appearance of the aortic valve. No significant aortic stenosis or insufficiency. Tricuspid Valve: Normal appearance of the tricuspid valve. Unable to obtain RVSP due to minimal presence of tricuspid regurgitation. There is trace tricuspid regurgitation. Pulmonic Valve: Pulmonic valve not well visualized. There is trace pulmonic regurgitation. Pericardium: Normal pericardium with no significant pericardial effusion. Aorta: Normal aortic root. IVC: Normal size and normal respiratory collapse consistent with normal right atrial pressure. Conclusions 1.Normal left ventricular systolic function. Normal left ventricular cavity size. Moderate to severe concentric left ventricular hypertrophy. Ejection fraction is visually estimated at 65 %. Tissue Doppler/Mitral Doppler indices are consistent with impaired relaxation (Stage I diastolic dysfunction). 2.Normal right ventricular size. Normal right ventricular systolic function. 3.The left atrium is normal in size. 4.The right atrium is normal in size. 5.No significant valvular stenosis or regurgitation seen. 6.Bubble study was performed indicating no evidence of intra atrial shunt. 7.Normal pericardium with no significant pericardial effusion. Electronically Signed By: Kilo Wang 09-Mar-2017 17:05:05 -0700 Patient Name: LEONILA GERONIMO Study Date: 08-Mar-2017 [id number]
[2017-03-09] MEDS: ATORVASTATIN 10 MG TAB PO SCH (21:00)
[2017-03-10] VITALS (12 sets, daily range): BP systolic 180–203; BP diastolic 79–104; PULSE 46–71; RESP 17–20
[2017-03-10] MEDS: ACCU-CHEK XX SCH ×2 (02:00)
[2017-03-10] MEDS: PANTOPRAZOLE (EC) 40 MG TAB PO SCH (07:05)
[2017-03-10] MEDS: INSULIN ASPART [NOVOLOG] 3 ML PEN SC SCH ×4 (08:00→20:55)
[2017-03-10] MEDS ORDERED: ALPRAZOLAM 0.25 MG TAB PO SCH (09:30)
[2017-03-10] MEDS: LISINOPRIL 20 MG TAB PO SCH (09:57)
[2017-03-10] MEDS: DOCUSATE SODIUM 100 MG CAP PO SCH ×2 (09:57→20:55)
--- NOTE | 2017-03-10 11:11 | CONS ---
Date/Time of Note Date/Time of Note DATE: 03/10/17 TIME: 11:05 Consult Date/Type/Reason Admit Date/Time Mar 07, 2017 at 19:04 Initial Consult Date 03/08/17 Type of Consultation: Neurology Reason for Consultation left sided weakness rigidity Ordering Provider: PATRICIA LEVINE Subjective remains stable fatigued after working with PT Objective Vital Signs Date Time Temp Pulse Resp B/P Pulse Ox O2 Delivery O2 Flow Rate FiO2 03/10/17 09:11 46 03/10/17 07:50 97.8 18 203/86 98 03/08/17 06:52 Room Air 03/07/17 14:49 2 Intake and Output 03/09/17 03/09/17 03/10/17 15:00 23:00 07:00 Intake Total 300 ml 200 ml Balance 300 ml 200 ml Exam awake and alert NAD oriented to self daughter date says its August 06 2016 able to re orient masked facies flat affect CN: AFSHAN, VFF EOMI no nystagmus palate upgoing uvula midline scm/trap intact Motor: right UE and Right LE 5/5 Left 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 LLE 5-/5 increase tone with rigidity in LUE and LLE Sensory intact throughout Coordination: right FTN intact left is slower than right no ataxia Reflexes 1+ throughout Results/Medications Result Diagram: 03/08/17 0703/08/17 0704 Results 24 hrs Laboratory Tests Test 03/09/17 11:46 03/09/17 17:40 03/09/17 21:11 03/10/17 08:26 Bedside Glucose 124 107 152 110 Medications Current Medications Sodium Chloride (NS) 1,000 ml @ 60 mls/hr [id number] IV Last administered on 03/09 14:39; Admin Dose 60 MLS/HR; Start 03/07/17 at 21:00 Ondansetron HCl (Zofran Inj) 4 mg Q6H PRN IV NAUSEA AND/OR VOMITING; Start 04/13 at 21:00 Acetaminophen (Tylenol Tab) 650 mg Q6H PRN PO PAIN LEVEL 1-3 OR FEVER; Start at 21:00 Hydralazine HCl (Apresoline) 10 mg Q4H PRN IV ELEVATED BLOOD PRESSURE Last administered on 03/08/17 15:53; Admin Dose 10 MG; Start 03/08/17 at 01:00 Docusate Sodium (Colace) 100 mg BID PO Last administered on 03/10/17 09:57; Admin Dose 100 MG; Start 03/08/17 at 09:00 Magnesium Hydroxide (Milk Of Mag) 30 ml DAILY PRN PO CONSTIPATION Last administered on 03/08/17 06:09; Admin Dose 30 ML; Start 03/08/17 at 01:30 Diagnostic Test (Pha) (Accu-Chek) 1 ea 02 XX Last administered on 03/10/17 02: 00; Admin Dose 1 EA; Start 03/08/17 at 02:00 Diagnostic Test (Pha) (Accu-Chek) 1 ea 02 XX ; Start 03/08/17 at 02:00 Miscellaneous Information 1 ea NOTE XX ; Start 03/08/17 at 02:30 Glucose (Glutose) 15 gm Q15M PRN PO DECREASED GLUCOSE; Start 03/08/17 at 02:30 Glucose (Glutose) 22.5 gm Q15M PRN PO DECREASED GLUCOSE; Start 03/08/17 at 02: 30 Dextrose (D50w Syringe) 25 ml Q15M PRN IV DECREASED GLUCOSE; Start 03/08/17 at 02:30 Dextrose (D50w Syringe) 50 ml Q15M PRN IV DECREASED GLUCOSE; Start 03/08/17 at 02:30 Glucagon (Glucagen) 1 mg Q15M PRN IM DECREASED GLUCOSE; Start 03/08/17 at 02:30 Glucose (Glutose) 15 gm Q15M PRN BUCCAL DECREASED GLUCOSE; Start 03/08/17 at 02 :30 Pantoprazole (Protonix Tab) 40 mg DAILY@06 PO Last administered on 03/10/17 07 :05; Admin Dose 40 MG; Start 03/09/17 at 06:00 Atorvastatin Calcium (Lipitor) 10 mg HS PO Last administered on 03/08/17 21:59 ; Admin Dose 10 MG; Start 03/08/17 at 21:00 Lisinopril (Zestril) 20 mg DAILY PO Last administered on 03/10/17 09:57; Admin Dose 20 MG; Start 03/10/17 at 09:00 Alprazolam (Xanax) 0.25 mg ONCE PO ; Start 03/10/17 at 09:30; Stop 03/11/17 at 09:29 Assessment/Plan Chief Complaint/Hosp Course 77 yo female with history of HTN, DM, cognitive decline, urinary incontinence, p /w increased LLE weakness. Exam concerning for left arm weakness as well. MRI Brain: Diffuse central cerebral and cerebellar volume loss with frontotemporal predominance asymmetric to the right . Marked ventriculomegaly asymmetric to the right. Recommendations; Would recommend Diagnostic LP to evaluate for NPH- recommend LP may send Cell Count, Cultures, Basic labs Protein Glucose Recommend checking pressure as well as removal of atleast 25-30 cc of fluid ASA 81 mg daily SBP <140/90 LDL: 138, HBA1C: 6.5% optimize risk factors for secondary stroke prevention, c/ w statin on low dose Lipitor DVT ppx Continue PT/OT/Speech evaluation for rehab LP is currently pending to evaluate for possible NPH suggest PT work with patient after LP to evaluate for gait improvement however another possible differential given her exam findings and MRI findings of asymmetry could also be suggestive of another neurodegenerative process called Corticobasilar Degeneration CBG further would would involve obtaining an MRI PET Scan possible FDOPA PET this can be arranged as outpatient with her neurologist Problems: CLARK GORE MD Mar 10, 2017 11:11
--- NOTE | 2017-03-10 12:11 | PN ---
Date/Time of Note Date/Time of Note DATE: 03/10/17 TIME: 12:07 Assessment/Plan VTE Prophylaxis VTE Prophylaxis Intervention: LMWH Lines/Catheters [facility] Peripheral IV Urinary Cath still in place: No Assessment/Plan Assessment/Plan 1. TIA with left leg weakness, no acute changes on MRI, on aspirin and lipitor 2 . hypertension: increase lisinopril 3. diabetes mellitus: insulin sliding scale 4. dementia: Stable. 5. DVT prophylaxis lovenox 6. R/o normal pressure hydrocephalus, discussed with neurologist today, talked with the daughter, will try LP to release 30 cc CSF Subjective 24 Hr Interval Summary Free Text/Dictation no event. awaiting for LP Exam/Review of Systems Vital Signs Vitals Vital Signs Date Time Temp Pulse Resp B/P Pulse Ox O2 Delivery O2 Flow Rate FiO2 03/10/17 11:30 97.7 56 18 189/79 99 03/08/17 06:52 Room Air 03/07/17 14:49 2 Intake and Output 03/09/17 03/09/17 03/10/17 15:00 23:00 07:00 Intake Total 300 ml 200 ml Balance 300 ml 200 ml Exam Constitutional: alert, well developed Psych: nl mood/affect, no complaints Head: atraumatic, normocephalic Eyes: EOMI, PERRL, nl conjunctiva, nl lids ENMT: nl external ears & nose, nl lips & teeth, nl nasal mucosa & septum Neck: non-tender, supple Respiratory: clear to auscultation, normal air movement Cardiovascular: nl pulses, regular rate and rhythm, No S3, No S4, No bruits, No diastolic murmur, No edema, No gallop, No irregular rhythm, No jugular venous distention (JVD), No murmurs/extra sounds, No other, No rub, No systolic murmur Gastrointestinal: nl liver, spleen, non-tender, soft, No ascites, No bowel sounds, No distended, No firm, No hepatomegaly, No mass , No other, No rebound or guarding, No splenomegaly, No surgical scars, No tender Musculoskeletal: nl extremities to inspection Extremities: normal pulses, No calf tenderness, No clubbing, No cyanosis, No edema, No other, No palpable cord, No pitting pedal edema, No tenderness 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: GRID MOLDER II-XII 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, nl speech, nl strength Results Result Diagram: 03/08/17 0704 03/08/17 0704 Results 24 hrs Laboratory Tests Test 03/09/17 17:40 03/09/17 21:11 03/10/17 08:26 Bedside Glucose 107 152 110 Medications Medications Current Medications Sodium Chloride (NS) 1,000 ml @ 60 mls/hr [id number] IV Last administered on 03/09 14:39; Admin Dose 60 MLS/HR; Start 03/07/17 at 21:00 Ondansetron HCl (Zofran Inj) 4 mg Q6H PRN IV NAUSEA AND/OR VOMITING; Start 04/13 at 21:00 Acetaminophen (Tylenol Tab) 650 mg Q6H PRN PO PAIN LEVEL 1-3 OR FEVER; Start at 21:00 Hydralazine HCl (Apresoline) 10 mg Q4H PRN IV ELEVATED BLOOD PRESSURE Last administered on 03/08/17 15:53; Admin Dose 10 MG; Start 03/08/17 at 01:00 Docusate Sodium (Colace) 100 mg BID PO Last administered on 03/10/17 09:57; Admin Dose 100 MG; Start 03/08/17 at 09:00 Magnesium Hydroxide (Milk Of Mag) 30 ml DAILY PRN PO CONSTIPATION Last administered on 03/08/17 06:09; Admin Dose 30 ML; Start 03/08/17 at 01:30 Diagnostic Test (Pha) (Accu-Chek) 1 ea 02 XX Last administered on 03/10/17 02: 00; Admin Dose 1 EA; Start 03/08/17 at 02:00 Diagnostic Test (Pha) (Accu-Chek) 1 ea 02 XX ; Start 03/08/17 at 02:00 Miscellaneous Information 1 ea NOTE XX ; Start 03/08/17 at 02:30 Glucose (Glutose) 15 gm Q15M PRN PO DECREASED GLUCOSE; Start 03/08/17 at 02:30 Glucose (Glutose) 22.5 gm Q15M PRN PO DECREASED GLUCOSE; Start 03/08/17 at 02: 30 Dextrose (D50w Syringe) 25 ml Q15M PRN IV DECREASED GLUCOSE; Start 03/08/17 at 02:30 Dextrose (D50w Syringe) 50 ml Q15M PRN IV DECREASED GLUCOSE; Start 03/08/17 at 02:30 Glucagon (Glucagen) 1 mg Q15M PRN IM DECREASED GLUCOSE; Start 03/08/17 at 02:30 Glucose (Glutose) 15 gm Q15M PRN BUCCAL DECREASED GLUCOSE; Start 03/08/17 at 02 :30 Pantoprazole (Protonix Tab) 40 mg DAILY@06 PO Last administered on 03/10/17 07 :05; Admin Dose 40 MG; Start 03/09/17 at 06:00 Atorvastatin Calcium (Lipitor) 10 mg HS PO Last administered on 03/08/17 21:59 ; Admin Dose 10 MG; Start 03/08/17 at 21:00 Lisinopril (Zestril) 20 mg DAILY PO Last administered on 03/10/17 09:57; Admin Dose 20 MG; Start 03/10/17 at 09:00 Alprazolam (Xanax) 0.25 mg ONCE PO ; Start 03/10/17 at 09:30; Stop 03/11/17 at 09:29 AMY ANGEL MD Mar 10, 2017 12:11
[2017-03-10] MEDS: SOD CHLORIDE 0.9% 1,000 ML IV SCH (15:40)
[2017-03-10] MEDS: ATORVASTATIN 10 MG TAB PO SCH (20:55)
[2017-03-11] VITALS (11 sets, daily range): BP systolic 167–195; BP diastolic 72–103; PULSE 45–76; RESP 18–19
[2017-03-11] MEDS: ACCU-CHEK XX SCH ×2 (02:00)
[2017-03-11] MEDS: PANTOPRAZOLE (EC) 40 MG TAB PO SCH (06:05)
[2017-03-11] MEDS: SOD CHLORIDE 0.9% 1,000 ML IV SCH (07:47)
[2017-03-11] MEDS: INSULIN ASPART [NOVOLOG] 3 ML PEN SC SCH ×4 (08:00→21:00)
[2017-03-11] MEDS: DOCUSATE SODIUM 100 MG CAP PO SCH ×2 (09:36→21:56)
[2017-03-11] MEDS: LISINOPRIL 20 MG TAB PO SCH (09:37)
[2017-03-11] MEDS ORDERED: ALPRAZOLAM 0.25 MG TAB PO SCH (11:40)
--- NOTE | 2017-03-11 11:44 | CONS ---
Date/Time of Note Date/Time of Note DATE: 03/11/17 TIME: 11:42 Consult Date/Type/Reason Admit Date/Time Mar 07, 2017 at 19:04 Initial Consult Date 03/08/17 Type of Consultation: Neurology Reason for Consultation evaluation for CVA r/o NPH Ordering Provider: PATRICIA LEVINE Subjective able to ambulate more today with assistance and PT LP still pending to eval for NPH Objective Vital Signs Date Time Temp Pulse Resp B/P Pulse Ox O2 Delivery O2 Flow Rate FiO2 03/11/17 08:42 46 03/11/17 07:58 98.3 18 173/89 96 03/08/17 06:52 Room Air 03/07/17 14:49 2 Intake and Output 03/10/17 03/10/17 03/11/17 15:00 23:00 07:00 Intake Total 1440 ml Balance 1440 ml Exam awake and alert NAD oriented to self daughter date says its August 06 2016 able to re orient masked facies flat affect CN: AFSHAN, VFF EOMI no nystagmus palate upgoing uvula midline scm/trap intact Motor: right UE and Right LE 5/5 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 5-/5 increase tone with rigidity in LUE and LLE Sensory intact throughout Coordination: right FTN intact left is slower than right no ataxia Reflexes 1+ throughout Results/Medications Result Diagram: 03/08/17 0704 03/08/17 0704 Results 24 hrs Laboratory Tests Test 03/10/17 12:32 03/10/17 17:50 03/10/17 20:41 03/11/17 02:29 Bedside Glucose 105 114 113 113 Test 03/11/17 08:04 Bedside Glucose 98 Medications Current Medications Sodium Chloride (NS) 1,000 ml @ 60 mls/hr [id number] IV Last administered on 03/09t 14:39; Admin Dose 60 MLS/HR; Start 03/07/17 at 21:00 Ondansetron HCl (Zofran Inj) 4 mg Q6H PRN IV NAUSEA AND/OR VOMITING; Start 04/13 at 21:00 Acetaminophen (Tylenol Tab) 650 mg Q6H PRN PO PAIN LEVEL 1-3 OR FEVER; Start at 21:00 Hydralazine HCl (Apresoline) 10 mg Q4H PRN IV ELEVATED BLOOD PRESSURE Last administered on 03/08/17 15:53; Admin Dose 10 MG; Start 03/08/17 at 01:00 Docusate Sodium (Colace) 100 mg BID PO Last administered on 03/11/17 09:36; Admin Dose 100 MG; Start 03/08/17 at 09:00 Magnesium Hydroxide (Milk Of Mag) 30 ml DAILY PRN PO CONSTIPATION Last administered on 03/08/17 06:09; Admin Dose 30 ML; Start 03/08/17 at 01:30 Diagnostic Test (Pha) (Accu-Chek) 1 ea 02 XX Last administered on 03/11/17 02: 00; Admin Dose 1 EA; Start 03/08/17 at 02:00 Diagnostic Test (Pha) (Accu-Chek) 1 ea 02 XX Last administered on 03/11/17 02: 00; Admin Dose 1 EA; Start 03/08/17 at 02:00 Miscellaneous Information 1 ea NOTE XX ; Start 03/08/17 at 02:30 Glucose (Glutose) 15 gm Q15M PRN PO DECREASED GLUCOSE; Start 03/08/17 at 02:30 Glucose (Glutose) 22.5 gm Q15M PRN PO DECREASED GLUCOSE; Start 03/08/17 at 02: 30 Dextrose (D50w Syringe) 25 ml Q15M PRN IV DECREASED GLUCOSE; Start 03/08/17 at 02:30 Dextrose (D50w Syringe) 50 ml Q15M PRN IV DECREASED GLUCOSE; Start 03/08/17 at 02:30 Glucagon (Glucagen) 1 mg Q15M PRN IM DECREASED GLUCOSE; Start 03/08/17 at 02:30 Glucose (Glutose) 15 gm Q15M PRN BUCCAL DECREASED GLUCOSE; Start 03/08/17 at 02 :30 Pantoprazole (Protonix Tab) 40 mg DAILY@06 PO Last administered on 03/11/17 06 :05; Admin Dose 40 MG; Start 03/09/17 at 06:00 Atorvastatin Calcium (Lipitor) 10 mg HS PO Last administered on 03/10/17 20:55 ; Admin Dose 10 MG; Start 03/08/17 at 21:00 Lisinopril (Zestril) 20 mg DAILY PO Last administered on 03/11/17 09:37; Admin Dose 20 MG; Start 03/10/17 at 09:00 Alprazolam (Xanax) 0.25 mg ONCE PO ; Start 03/11/17 at 11:40; Stop 03/11/17 at 15:00 Assessment/Plan Chief Complaint/Hosp Course 77 yo female with history of HTN, DM, cognitive decline, urinary incontinence, p /w increased LLE weakness. Exam concerning for left arm weakness as well. MRI Brain: Diffuse central cerebral and cerebellar volume loss with frontotemporal predominance asymmetric to the right . Marked ventriculomegaly asymmetric to the right. Recommendations; Would recommend Diagnostic LP to evaluate for NPH- recommend LP may send Cell Count, Cultures, Basic labs Protein Glucose Recommend checking pressure as well as removal of atleast 25-30 cc of fluid ASA 81 mg daily SBP <140/90 LDL: 138, HBA1C: 6.5% optimize risk factors for secondary stroke prevention, c/ w statin on low dose Lipitor DVT ppx Continue PT/OT/Speech evaluation for rehab LP is currently pending to evaluate for possible NPH suggest PT work with patient after LP to evaluate for gait improvement however another possible differential given her exam findings and MRI findings of asymmetry could also be suggestive of another neurodegenerative process called Cortico basilar Degeneration CBG further would would involve obtaining an MRI PET Scan possible FDOPA PET this can be arranged as outpatient with her neurologist Dr. Ho in [place] I have contacted him to discuss the case Problems: CLARK GORE MD Mar 11, 2017 11:44
--- NOTE | 2017-03-11 14:47 | PN ---
Date/Time of Note Date/Time of Note DATE: 03/11/17 TIME: 14:46 Assessment/Plan VTE Prophylaxis VTE Prophylaxis Intervention: LMWH Lines/Catheters [facility] [place] Urinary Cath still in place: No Assessment/Plan Assessment/Plan 1. TIA with left leg weakness, no acute changes on MRI, on aspirin and lipitor 2 . hypertension: increase lisinopril 3. diabetes mellitus: insulin sliding scale 4. dementia: Stable. 5. DVT prophylaxis lovenox 6. R/o normal pressure hydrocephalus, s/p LP today Subjective 24 Hr Interval Summary Free Text/Dictation demented, alert and calm, talked to the daughter Exam/Review of Systems Vital Signs Vitals Vital Signs Date Time Temp Pulse Resp B/P Pulse Ox O2 Delivery O2 Flow Rate FiO2 03/11/17 13:10 45 03/11/17 11:56 98.5 167/72 100 03/11/17 07:58 18 03/08/17 06:52 Room Air 03/07/17 14:49 2 Intake and Output 03/10/17 03/10/17 03/11/17 15:00 23:00 07:00 Intake Total 1440 ml Balance 1440 ml Exam Constitutional: alert, well developed Head: atraumatic, normocephalic Eyes: EOMI, PERRL, nl conjunctiva, nl lids, nl sclera ENMT: nl external ears & nose, nl lips & teeth, nl nasal mucosa & septum Neck: non-tender, supple Respiratory: clear to auscultation, normal air movement, No congested cough, No crackles/rales, No diminished breath sounds, No intercostal retraction, No labored breathing, No other, No respirations, No tactile fremitus, No wheezing Cardiovascular: nl pulses, regular rate and rhythm, No S3, No S4, No bruits, No diastolic murmur, No edema, No gallop, No irregular rhythm, No jugular venous distention (JVD), No murmurs/extra sounds, No other, No rub, No systolic murmur Gastrointestinal: nl liver, spleen, non-tender, soft, No ascites, No bowel sounds, No distended, No firm, No hepatomegaly, No mass , No other, No rebound or guarding, No splenomegaly, No surgical scars, No tender Musculoskeletal: nl extremities to inspection Extremities: normal pulses, No calf tenderness, No clubbing, No cyanosis, No edema, No other, No palpable cord, No pitting pedal edema, No tenderness 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, confused Skin: nl turgor Results Result Diagram: 03/08/17 0704 03/08/17 0704 Results 24 hrs Laboratory Tests Test 03/10/17 17:50 03/10/17 20:41 03/11/17 02:29 03/11/17 08:04 Bedside Glucose 114 113 113 98 Test 03/11/17 11:50 Bedside Glucose 98 Medications Medications Current Medications Sodium Chloride (NS) 1,000 ml @ 60 mls/hr [id number] IV Last administered on 03/09 14:39; Admin Dose 60 MLS/HR; Start 03/07/17 at 21:00 Ondansetron HCl (Zofran Inj) 4 mg Q6H PRN IV NAUSEA AND/OR VOMITING; Start 04/13 at 21:00 Acetaminophen (Tylenol Tab) 650 mg Q6H PRN PO PAIN LEVEL 1-3 OR FEVER; Start at 21:00 Hydralazine HCl (Apresoline) 10 mg Q4H PRN IV ELEVATED BLOOD PRESSURE Last administered on 03/08/17 15:53; Admin Dose 10 MG; Start 03/08/17 at 01:00 Docusate Sodium (Colace) 100 mg BID PO Last administered on 03/11/17 09:36; Admin Dose 100 MG; Start 03/08/17 at 09:00 Magnesium Hydroxide (Milk Of Mag) 30 ml DAILY PRN PO CONSTIPATION Last administered on 03/08/17 06:09; Admin Dose 30 ML; Start 03/08/17 at 01:30 Diagnostic Test (Pha) (Accu-Chek) 1 ea 02 XX Last administered on 03/11/17 02: 00; Admin Dose 1 EA; Start 03/08/17 at 02:00 Diagnostic Test (Pha) (Accu-Chek) 1 ea 02 XX Last administered on 03/11/17 02: 00; Admin Dose 1 EA; Start 03/08/17 at 02:00 Miscellaneous Information 1 ea NOTE XX ; Start 03/08/17 at 02:30 Glucose (Glutose) 15 gm Q15M PRN PO DECREASED GLUCOSE; Start 03/08/17 at 02:30 Glucose (Glutose) 22.5 gm Q15M PRN PO DECREASED GLUCOSE; Start 03/08/17 at 02: 30 Dextrose (D50w Syringe) 25 ml Q15M PRN IV DECREASED GLUCOSE; Start 03/08/17 at 02:30 Dextrose (D50w Syringe) 50 ml Q15M PRN IV DECREASED GLUCOSE; Start 03/08/17 at 02:30 Glucagon (Glucagen) 1 mg Q15M PRN IM DECREASED GLUCOSE; Start 03/08/17 at 02:30 Glucose (Glutose) 15 gm Q15M PRN BUCCAL DECREASED GLUCOSE; Start 03/08/17 at 02 :30 Pantoprazole (Protonix Tab) 40 mg DAILY@06 PO Last administered on 03/11/17 06 :05; Admin Dose 40 MG; Start 03/09/17 at 06:00 Atorvastatin Calcium (Lipitor) 10 mg HS PO Last administered on 03/10/17 20:55 ; Admin Dose 10 MG; Start 03/08/17 at 21:00 Lisinopril (Zestril) 20 mg DAILY PO Last administered on 03/11/17 09:37; Admin Dose 20 MG; Start 03/10/17 at 09:00 Alprazolam (Xanax) 0.25 mg ONCE PO Last administered on 03/11/17 11:44; Admin Dose 0.25 MG; Start 03/11/17 at 11:40; Stop 03/11/17 at 15:00 Amlodipine Besylate (Norvasc) 5 mg DAILY PO ; Start 03/11/17 at 14:30 AMY ANGEL MD Mar 11, 2017 14:47
--- NOTE | 2017-03-11 15:11 | RADRPT ---
PROCEDURE: Fluoroscopic guided lumbar puncture. CLINICAL INDICATION: Dizziness. There is any clinical concern for normal pressure hydrocephalus. TECHNIQUE: Prior to the procedure, informed consent was obtained. Risks including bleeding and in fection were explained to the patient. The patient understood and was willing to proceed. A proced ural pause was performed. The patient's name, date of , and procedure to be performed were ngozi ified. Using local anesthetic, sterile technique, and fluoroscopic guidance, a 22-gauge spinal needle was a dvanced into the thecal sac at the L5-S1 level. Opening pressure was 11 cm of water. 20 mL of connor r cerebrospinal fluid was aspirated and sent for laboratory analysis. The needle was removed. A dr essing was applied. The patient tolerated the procedure well. A total of 0.1 minutes of fluoroscopy time was used. 3 images were obtained with image intensifier. COMPARISON: MRI of the brain dated 03/08/2017. FINDINGS: Images demonstrate the needle at the L5-S1 level in the thecal sac. IMPRESSION: Satisfactory fluoroscopic guided lumbar puncture. The opening pressure was 11 cm of water. RPTAT: QQ .Wolf Sweeney MD, Date Time Electronically viewed and signed by .Wolf Sweeney MD, on 03/11/2017 15:10 .R/
[2017-03-11] MEDS: AMLODIPINE 5 MG TAB PO SCH (15:58)
[2017-03-11 17:23] LABS: CSF COLOR COLORLESS
[2017-03-11 17:24] LABS: CSF#TUBES REC'D 3
[2017-03-11 17:25] LABS: CSF#TUBE COUNT TUBE#3
[2017-03-11 21:23] LABS: GLUCOSE,CSF 69 mg/dl (50-80)
[2017-03-11] MEDS: ATORVASTATIN 10 MG TAB PO SCH (21:56)
[2017-03-12] VITALS (11 sets, daily range): BP systolic 135–176; BP diastolic 63–79; PULSE 56–71; RESP 16–20
[2017-03-12] MEDS: SOD CHLORIDE 0.9% 1,000 ML IV SCH ×2 (01:00→08:25)
[2017-03-12] MEDS: ACCU-CHEK XX SCH ×2 (02:00)
[2017-03-12] MEDS: PANTOPRAZOLE (EC) 40 MG TAB PO SCH (05:36)
[2017-03-12] MEDS: INSULIN ASPART [NOVOLOG] 3 ML PEN SC SCH ×4 (08:00→21:00)
[2017-03-12] MEDS: AMLODIPINE 5 MG TAB PO SCH (08:24)
[2017-03-12] MEDS: LISINOPRIL 20 MG TAB PO SCH (08:24)
[2017-03-12] MEDS: DOCUSATE SODIUM 100 MG CAP PO SCH ×2 (08:24→21:04)
--- NOTE | 2017-03-12 13:44 | PN ---
Date/Time of Note Date/Time of Note DATE: 03/12/17 TIME: 13:40 Assessment/Plan VTE Prophylaxis VTE Prophylaxis Intervention: LMWH Lines/Catheters IV Catheter Type (from [facility]): Peripheral IV Urinary Cath still in place: No Assessment/Plan Assessment/Plan 1. 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 TIA with left leg weakness, no acute changes on MRI, on aspirin and lipitor 3. diabetes mellitus: insulin sliding scale 4. hypertension: on lisinopril 5. DVT prophylaxis lovenox Subjective 24 Hr Interval Summary Free Text/Dictation better balance and metal status Exam/Review of Systems Vital Signs Vitals Vital Signs Date Time Temp Pulse Resp B/P Pulse Ox O2 Delivery O2 Flow Rate FiO2 03/12/17 13:19 63 03/12/17 07:44 98.2 18 173/79 98 Intake and Output 03/11/17 03/11/17 03/12/17 15:00 23:00 07:00 Intake Total 520 ml Balance 520 ml Exam Constitutional: alert, well developed Head: atraumatic, normocephalic Eyes: EOMI, nl conjunctiva, nl lids ENMT: nl external ears & nose, nl lips & teeth, nl nasal mucosa & septum Neck: jvd, non-tender, supple Respiratory: clear to auscultation, normal air movement, No congested cough, No crackles/rales, No diminished breath sounds, No intercostal retraction, No labored breathing, No other, No respirations, No tactile fremitus, No wheezing Cardiovascular: nl pulses, regular rate and rhythm, No S3, No S4, No bruits, No diastolic murmur, No edema, No gallop, No irregular rhythm, No jugular venous distention (JVD), No murmurs/extra sounds, No other, No rub, No systolic murmur Gastrointestinal: nl liver, spleen, non-tender, soft, No ascites, No bowel sounds, No distended, No firm, No hepatomegaly, No mass , No other, No rebound or guarding, No splenomegaly, No surgical scars, No tender Musculoskeletal: nl extremities to inspection Extremities: normal pulses, No calf tenderness, No clubbing, No cyanosis, No edema, No other, No palpable cord, No pitting pedal edema, No tenderness 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: SCIENTIFIC ILLUSTRATOR II-XII intact, other (demented) Results Result Diagram: 03/08/17 0704 03/08/17 0704 Results 24 hrs Laboratory Tests Test 03/11/17 15:57 03/11/17 21:54 03/12/17 08:21 03/12/17 12:40 Bedside Glucose 108 147 95 125 Medications Medications Current Medications Sodium Chloride (NS) 1,000 ml @ 60 mls/hr [id number] IV Last administered on 03/12 08:25; Admin Dose 60 MLS/HR; Start 03/07/17 at 21:00 Ondansetron HCl (Zofran Inj) 4 mg Q6H PRN IV NAUSEA AND/OR VOMITING; Start 04/13 at 21:00 Acetaminophen (Tylenol Tab) 650 mg Q6H PRN PO PAIN LEVEL 1-3 OR FEVER; Start at 21:00 Hydralazine HCl (Apresoline) 10 mg Q4H PRN IV ELEVATED BLOOD PRESSURE Last administered on 03/08/17 15:53; Admin Dose 10 MG; Start 03/08/17 at 01:00 Docusate Sodium (Colace) 100 mg BID PO Last administered on 03/12/17 08:24; Admin Dose 100 MG; Start 03/08/17 at 09:00 Magnesium Hydroxide (Milk Of Mag) 30 ml DAILY PRN PO CONSTIPATION Last administered on 03/08/17 06:09; Admin Dose 30 ML; Start 03/08/17 at 01:30 Diagnostic Test (Pha) (Accu-Chek) 1 ea 02 XX Last administered on 03/11/17 02: 00; Admin Dose 1 EA; Start 03/08/17 at 02:00 Diagnostic Test (Pha) (Accu-Chek) 1 ea 02 XX Last administered on 03/11/17 02: 00; Admin Dose 1 EA; Start 03/08/17 at 02:00 Miscellaneous Information 1 ea NOTE XX ; Start 03/08/17 at 02:30 Glucose (Glutose) 15 gm Q15M PRN PO DECREASED GLUCOSE; Start 03/08/17 at 02:30 Glucose (Glutose) 22.5 gm Q15M PRN PO DECREASED GLUCOSE; Start 03/08/17 at 02: 30 Dextrose (D50w Syringe) 25 ml Q15M PRN IV DECREASED GLUCOSE; Start 03/08/17 at 02:30 Dextrose (D50w Syringe) 50 ml Q15M PRN IV DECREASED GLUCOSE; Start 03/08/17 at 02:30 Glucagon (Glucagen) 1 mg Q15M PRN IM DECREASED GLUCOSE; Start 03/08/17 at 02:30 Glucose (Glutose) 15 gm Q15M PRN BUCCAL DECREASED GLUCOSE; Start 03/08/17 at 02 :30 Pantoprazole (Protonix Tab) 40 mg DAILY@06 PO Last administered on 03/12/17 05 :36; Admin Dose 40 MG; Start 03/09/17 at 06:00 Atorvastatin Calcium (Lipitor) 10 mg HS PO Last administered on 03/11/17 21:56 ; Admin Dose 10 MG; Start 03/08/17 at 21:00 Lisinopril (Zestril) 20 mg DAILY PO Last administered on 03/12/17 08:24; Admin Dose 20 MG; Start 03/10/17 at 09:00 Amlodipine Besylate (Norvasc) 5 mg DAILY PO Last administered on 03/12/17 08: 24; Admin Dose 5 MG; Start 03/11/17 at 14:30 AMY ANGEL MD Mar 12, 2017 13:43
--- NOTE | 2017-03-12 14:26 | CONS ---
Date/Time of Note Date/Time of Note DATE: 03/12/17 TIME: 14:20 Consult Date/Type/Reason Admit Date/Time Mar 07, 2017 at 19:04 Initial Consult Date 03/08/17 Type of Consultation: Neurology Ordering Provider: PATRICIA LEVINE Subjective s/p LP yesterday, OP WNL, removed 20 ml, per daughter after the procedure pt started waling normally, became more lucid, staretd feeling when has to go to the bathroom . Objective Vital Signs Date Time Temp Pulse Resp B/P Pulse Ox O2 Delivery O2 Flow Rate FiO2 03/12/17 13:19 63 03/12/17 07:44 98.2 18 173/79 98 Intake and Output 03/11/17 03/11/17 03/12/17 15:00 23:00 07:00 Intake Total 520 ml Balance 520 ml Results/Medications Result Diagram: 03/08/17 0704 03/08/17 0704 Results 24 hrs Laboratory Tests Test 03/11/17 15:57 03/11/17 21:54 03/12/17 08:21 03/12/17 12:40 Bedside Glucose 108 147 95 125 Medications Current Medications Sodium Chloride (NS) 1,000 ml @ 60 mls/hr [id number] IV Last administered on 03/12 08:25; Admin Dose 60 MLS/HR; Start 03/07/17 at 21:00 Ondansetron HCl (Zofran Inj) 4 mg Q6H PRN IV NAUSEA AND/OR VOMITING; Start 04/13 at 21:00 Acetaminophen (Tylenol Tab) 650 mg Q6H PRN PO PAIN LEVEL 1-3 OR FEVER; Start at 21:00 Hydralazine HCl (Apresoline) 10 mg Q4H PRN IV ELEVATED BLOOD PRESSURE Last administered on 03/08/17 15:53; Admin Dose 10 MG; Start 03/08/17 at 01:00 Docusate Sodium (Colace) 100 mg BID PO Last administered on 03/12/17 08:24; Admin Dose 100 MG; Start 03/08/17 at 09:00 Magnesium Hydroxide (Milk Of Mag) 30 ml DAILY PRN PO CONSTIPATION Last administered on 03/08/17 06:09; Admin Dose 30 ML; Start 03/08/17 at 01:30 Diagnostic Test (Pha) (Accu-Chek) 1 ea 02 XX Last administered on 03/11/17 02: 00; Admin Dose 1 EA; Start 03/08/17 at 02:00 Diagnostic Test (Pha) (Accu-Chek) 1 ea 02 XX Last administered on 03/11/17 02: 00; Admin Dose 1 EA; Start 03/08/17 at 02:00 Miscellaneous Information 1 ea NOTE XX ; Start 03/08/17 at 02:30 Glucose (Glutose) 15 gm Q15M PRN PO DECREASED GLUCOSE; Start 03/08/17 at 02:30 Glucose (Glutose) 22.5 gm Q15M PRN PO DECREASED GLUCOSE; Start 03/08/17 at 02: 30 Dextrose (D50w Syringe) 25 ml Q15M PRN IV DECREASED GLUCOSE; Start 03/08/17 at 02:30 Dextrose (D50w Syringe) 50 ml Q15M PRN IV DECREASED GLUCOSE; Start 03/08/17 at 02:30 Glucagon (Glucagen) 1 mg Q15M PRN IM DECREASED GLUCOSE; Start 03/08/17 at 02:30 Glucose (Glutose) 15 gm Q15M PRN BUCCAL DECREASED GLUCOSE; Start 03/08/17 at 02 :30 Pantoprazole (Protonix Tab) 40 mg DAILY@06 PO Last administered on 03/12/17 05 :36; Admin Dose 40 MG; Start 03/09/17 at 06:00 Atorvastatin Calcium (Lipitor) 10 mg HS PO Last administered on 03/11/17 21:56 ; Admin Dose 10 MG; Start 03/08/17 at 21:00 Lisinopril (Zestril) 20 mg DAILY PO Last administered on 03/12/17 08:24; Admin Dose 20 MG; Start 03/10/17 at 09:00 Amlodipine Besylate (Norvasc) 5 mg DAILY PO Last administered on 03/12/17 08: 24; Admin Dose 5 MG; Start 03/11/17 at 14:30 Assessment/Plan Chief Complaint/Hosp Course Exam awake and alert NAD oriented x2 fluent speech CN: AFSHAN, VFF EOMI no nystagmus palate upgoing uvula midline scm/trap intact Motor: 5/5 Cogwheeling in the left UE Sensory intact throughout Coordination: OK Gait was not assessed. A/P: Probable NPH given response to LP. Daughter asks for rehab prior to d/c home, as multiple steps at home, falls by hx Will need NS eval for possible shunt placement, in or outpt. Problems: SUHAIL SHEN MD Mar 12, 2017 14:26
[2017-03-12] MEDS: ATORVASTATIN 10 MG TAB PO SCH (21:04)
[2017-03-13] VITALS (12 sets, daily range): BP systolic 143–174; BP diastolic 67–81; PULSE 57–103; RESP 19–20
[2017-03-13] MEDS: SOD CHLORIDE 0.9% 1,000 ML IV SCH (01:39)
[2017-03-13] MEDS: ACCU-CHEK XX SCH ×2 (02:00)
[2017-03-13] MEDS: PANTOPRAZOLE (EC) 40 MG TAB PO SCH (05:41)
[2017-03-13] MEDS: INSULIN ASPART [NOVOLOG] 3 ML PEN SC SCH ×4 (08:00→20:30)
[2017-03-13] MEDS: AMLODIPINE 5 MG TAB PO SCH (08:35)
[2017-03-13] MEDS: DOCUSATE SODIUM 100 MG CAP PO SCH ×2 (08:35→20:30)
[2017-03-13] MEDS: LISINOPRIL 20 MG TAB PO SCH (08:35)
--- NOTE | 2017-03-13 13:16 | PN ---
Date/Time of Note Date/Time of Note DATE: 03/13/17 TIME: 13:09 Assessment/Plan VTE Prophylaxis VTE Prophylaxis Intervention: contraindicated, SCD's Lines/Catheters [facility] Peripheral IV Urinary Cath still in place: No Assessment/Plan Problems: (1) Normal pressure hydrocephalus syndrome Status: Chronic Comment: Is a new diagnosis. Please see the notes from the neurologist on the response to therapeutics. Given the dementia I will go ahead and complete the dementia workup even though it is extremely low likelihood that the RPR VDRL will add anything to what were doing here. Neurosurgery has been called now by myself to come and evaluate the patient to see if we can get the process started for definitive treatment. (2) Metabolic syndrome Status: Chronic Comment: Noted. No indication for aggressive therapeutics (3) Essential hypertension Status: Chronic Comment: I believe the patient would do better with less amlodipine and more DOMINGUEZ inhibitor. I have taken care of writing the orders (4) Hyperlipidemia Status: Chronic Comment: Continue with statin therapy Qualifiers: Hyperlipidemia type: pure hypercholesterolemia Qualified Code: E78.00 - Pure hypercholesterolemia Subjective 24 Hr Interval Summary Free Text/Dictation She reports she is feeling well. She was unaware that she had had any changes after the spinal tap. Constitutional: no complaints Respiratory: no complaints Cardiovascular: no complaints Exam/Review of Systems Vital Signs Vitals Vital Signs Date Time Temp Pulse Resp B/P Pulse Ox O2 Delivery O2 Flow Rate FiO2 03/13/17 12:11 93 03/13/17 11:57 97.7 20 154/67 100 Intake and Output 03/12/17 03/12/17 03/13/17 15:00 23:00 07:00 Intake Total 720 ml 1060 ml Balance 720 ml 1060 ml Exam Oriented times person, modestly about place Constitutional: alert Neck: non-tender, supple Respiratory: clear to auscultation, normal air movement Cardiovascular: nl pulses, regular rate and rhythm Results Results 24 hrs Laboratory Tests Test 03/12/17 17:36 03/12/17 21:03 03/13/17 08:34 Bedside Glucose 99 110 120 Medications Medications Current Medications Sodium Chloride (NS) 1,000 ml @ 60 mls/hr [id number] IV Last administered on 03/13t 01:39; Admin Dose 60 MLS/HR; Start 03/07/17 at 21:00 Ondansetron HCl (Zofran Inj) 4 mg Q6H PRN IV NAUSEA AND/OR VOMITING; Start 04/13 at 21:00 Acetaminophen (Tylenol Tab) 650 mg Q6H PRN PO PAIN LEVEL 1-3 OR FEVER; Start at 21:00 Hydralazine HCl (Apresoline) 10 mg Q4H PRN IV ELEVATED BLOOD PRESSURE Last administered on 03/08/17 15:53; Admin Dose 10 MG; Start 03/08/17 at 01:00 Docusate Sodium (Colace) 100 mg BID PO Last administered on 03/13/17 08:35; Admin Dose 100 MG; Start 03/08/17 at 09:00 Magnesium Hydroxide (Milk Of Mag) 30 ml DAILY PRN PO CONSTIPATION Last administered on 03/08/17 06:09; Admin Dose 30 ML; Start 03/08/17 at 01:30 Diagnostic Test (Pha) (Accu-Chek) 1 ea 02 XX Last administered on 03/11/17 02: 00; Admin Dose 1 EA; Start 03/08/17 at 02:00 Diagnostic Test (Pha) (Accu-Chek) 1 ea 02 XX Last administered on 03/11/17 02: 00; Admin Dose 1 EA; Start 03/08/17 at 02:00 Miscellaneous Information 1 ea NOTE XX ; Start 03/08/17 at 02:30 Glucose (Glutose) 15 gm Q15M PRN PO DECREASED GLUCOSE; Start 03/08/17 at 02:30 Glucose (Glutose) 22.5 gm Q15M PRN PO DECREASED GLUCOSE; Start 03/08/17 at 02: 30 Dextrose (D50w Syringe) 25 ml Q15M PRN IV DECREASED GLUCOSE; Start 03/08/17 at 02:30 Dextrose (D50w Syringe) 50 ml Q15M PRN IV DECREASED GLUCOSE; Start 03/08/17 at 02:30 Glucagon (Glucagen) 1 mg Q15M PRN IM DECREASED GLUCOSE; Start 03/08/17 at 02:30 Glucose (Glutose) 15 gm Q15M PRN BUCCAL DECREASED GLUCOSE; Start 03/08/17 at 02 :30 Pantoprazole (Protonix Tab) 40 mg DAILY@06 PO Last administered on 03/13/17 05 :41; Admin Dose 40 MG; Start 03/09/17 at 06:00 Atorvastatin Calcium (Lipitor) 10 mg HS PO Last administered on 03/12/17 21:04 ; Admin Dose 10 MG; Start 03/08/17 at 21:00 Lisinopril (Zestril) 20 mg DAILY PO Last administered on 03/13/17 08:35; Admin Dose 20 MG; Start 03/10/17 at 09:00 Amlodipine Besylate (Norvasc) 5 mg DAILY PO Last administered on 03/13/17 08: 35; Admin Dose 5 MG; Start 03/11/17 at 14:30 TARAS BYRD MD Mar 13, 2017 13:16
[2017-03-13] MEDS: ATORVASTATIN 10 MG TAB PO SCH (20:30)
[2017-03-14] VITALS (12 sets, daily range): BP systolic 118–172; BP diastolic 63–80; PULSE 61–78; RESP 18–20
[2017-03-14] MEDS: ACCU-CHEK XX SCH ×2 (02:00)
[2017-03-14] MEDS: SOD CHLORIDE 0.9% 1,000 ML IV SCH ×2 (03:30→18:55)
[2017-03-14] MEDS: PANTOPRAZOLE (EC) 40 MG TAB PO SCH (06:09)
[2017-03-14] MEDS: INSULIN ASPART [NOVOLOG] 3 ML PEN SC SCH ×4 (08:00→21:00)
[2017-03-14] MEDS: LISINOPRIL 20 MG TAB PO SCH (08:48)
[2017-03-14] MEDS: AMLODIPINE 2.5 MG TAB PO SCH (08:48)
[2017-03-14] MEDS: DOCUSATE SODIUM 100 MG CAP PO SCH ×2 (08:48→21:03)
--- NOTE | 2017-03-14 11:13 | PN ---
Date/Time of Note Date/Time of Note DATE: 03/14/17 TIME: 11:10 Assessment/Plan VTE Prophylaxis VTE Prophylaxis Intervention: heparin Lines/Catheters IV Catheter Type (from [facility]): Peripheral IV Urinary Cath still in place: No Assessment/Plan Problems: (1) Normal pressure hydrocephalus syndrome Status: Chronic Comment: Patient was seen by Dr. Washington today although the notes are not yet in the chart. Ultimately what needs to be done as formulate a plan about when to offer her treatment. Once that is done the patient can be discharged home with outpatient follow-up unless we are going to go ahead and remove expeditiously now (2) Metabolic syndrome Status: Chronic Comment: Adequate control (3) Essential hypertension Status: Chronic Comment: Adequate control (4) Hyperlipidemia Status: Chronic Comment: Adequate control Qualifiers: Hyperlipidemia type: pure hypercholesterolemia Qualified Code: E78.00 - Pure hypercholesterolemia Subjective 24 Hr Interval Summary Free Text/Dictation Patient reports she is feeling better today. Constitutional: no complaints Respiratory: no complaints Cardiovascular: no complaints Gastrointestinal: no complaints Exam/Review of Systems Vital Signs Vitals Vital Signs Date Time Temp Pulse Resp B/P Pulse Ox O2 Delivery O2 Flow Rate FiO2 03/14/17 08:16 78 03/14/17 07:39 98.2 20 166/80 98 Intake and Output 03/13/17 03/13/17 03/14/17 15:00 23:00 07:00 Intake Total 1350 ml 530 ml Balance 1350 ml 530 ml Exam More alert and vibrant today. Nursing staff reports she is actually been up and ambulating Constitutional: alert Neck: non-tender, supple Respiratory: clear to auscultation, normal air movement Cardiovascular: nl pulses, regular rate and rhythm Gastrointestinal: nl liver, spleen, non-tender, soft Results Results 24 hrs Laboratory Tests Test 03/13/17 12:58 03/13/17 17:28 03/13/17 20:27 03/14/17 08:29 Bedside Glucose 140 147 105 102 Medications Medications Current Medications Sodium Chloride (NS) 1,000 ml @ 60 mls/hr [id number] IV Last administered on 03/14t 03:30; Admin Dose 60 MLS/HR; Start 03/07/17 at 21:00 Ondansetron HCl (Zofran Inj) 4 mg Q6H PRN IV NAUSEA AND/OR VOMITING; Start 04/13 at 21:00 Acetaminophen (Tylenol Tab) 650 mg Q6H PRN PO PAIN LEVEL 1-3 OR FEVER; Start at 21:00 Hydralazine HCl (Apresoline) 10 mg Q4H PRN IV ELEVATED BLOOD PRESSURE Last administered on 03/08/17 15:53; Admin Dose 10 MG; Start 03/08/17 at 01:00 Docusate Sodium (Colace) 100 mg BID PO Last administered on 03/14/17 08:48; Admin Dose 100 MG; Start 03/08/17 at 09:00 Magnesium Hydroxide (Milk Of Mag) 30 ml DAILY PRN PO CONSTIPATION Last administered on 03/08/17 06:09; Admin Dose 30 ML; Start 03/08/17 at 01:30 Diagnostic Test (Pha) (Accu-Chek) 1 ea 02 XX Last administered on 03/11/17 02: 00; Admin Dose 1 EA; Start 03/08/17 at 02:00 Diagnostic Test (Pha) (Accu-Chek) 1 ea 02 XX Last administered on 03/11/17 02: 00; Admin Dose 1 EA; Start 03/08/17 at 02:00 Miscellaneous Information 1 ea NOTE XX ; Start 03/08/17 at 02:30 Glucose (Glutose) 15 gm Q15M PRN PO DECREASED GLUCOSE; Start 03/08/17 at 02:30 Glucose (Glutose) 22.5 gm Q15M PRN PO DECREASED GLUCOSE; Start 03/08/17 at 02: 30 Dextrose (D50w Syringe) 25 ml Q15M PRN IV DECREASED GLUCOSE; Start 03/08/17 at 02:30 Dextrose (D50w Syringe) 50 ml Q15M PRN IV DECREASED GLUCOSE; Start 03/08/17 at 02:30 Glucagon (Glucagen) 1 mg Q15M PRN IM DECREASED GLUCOSE; Start 03/08/17 at 02:30 Glucose (Glutose) 15 gm Q15M PRN BUCCAL DECREASED GLUCOSE; Start 03/08/17 at 02 :30 Pantoprazole (Protonix Tab) 40 mg DAILY@06 PO Last administered on 03/14/17 06 :09; Admin Dose 40 MG; Start 03/09/17 at 06:00 Atorvastatin Calcium (Lipitor) 10 mg HS PO Last administered on 03/13/17 20:30 ; Admin Dose 10 MG; Start 03/08/17 at 21:00 Amlodipine Besylate (Norvasc) 2.5 mg DAILY PO Last administered on 03/14/17 08 :48; Admin Dose 2.5 MG; Start 03/14/17 at 09:00 Lisinopril (Zestril) 40 mg DAILY PO Last administered on 03/14/17 08:48; Admin Dose 40 MG; Start 03/14/17 at 09:00 TARAS BYRD MD Mar 14, 2017 11:13
--- NOTE | 2017-03-14 12:09 | CONS ---
DATE OF ADMISSION: 03/07/2017 DATE OF CONSULTATION: 03/14/2017 REQUESTING PHYSICIAN: Barrera Colorado MD REASON FOR CONSULTATION: Assessment for normal-pressure hydrocephalus. HISTORY OF PRESENT ILLNESS: The patient is a 77-year-old, right- handed female with a history of hypertension, diabetes, hypercalcemia, who was admitted to the hospital a week ago for reported increased left lower extremity weakness. The patient reportedly also had a history of cognitive decline and urinary incontinence per medical records. There was some concern by the evaluating neurologist, Dr. Mindi Junior. The patient also had some left upper extremity weakness. The patient was evaluated with an MRI of the brain without contrast as well as MRA of the head and neck without contrast, and these studies showed no evidence of acute infarct or intracranial hemorrhage. There was noted moderate chronic microvascular ischemic changes and marked diffuse central cerebral and cerebellar volume loss. The MRA of the neck showed no definite hemodynamically significant stenosis. The patient also had a CT of the brain, which again showed no evidence of acute intracranial hemorrhage, infarction, or acute intracranial pathology, but microvascular ischemic changes and diffuse volume loss. The patient ultimately underwent a high- volume lumbar puncture, and there is reported improvement of the patient's ambulation and cognition per the patient's family. No family is present at bedside, and the patient's history is obtained from the patient, who states that she does feel that she is somewhat cognitively improved after the lumbar puncture and also stated that she had some improvement in ambulation. Per the patient, she only feels that her walking difficulties began about 3 weeks ago. She also states that she had urinary incontinence, but this also began 3 weeks ago. She denies any headache, nausea, vomiting, or dizziness. The patient cannot give specific details regarding her prior evaluation or workup. PAST MEDICAL HISTORY: Is significant for hypertension, diabetes, and reported dementia. PAST SURGICAL HISTORY: Significant for hysterectomy. ALLERGIES: NO KNOWN DRUG ALLERGIES. MEDICATION: Reviewed. See MAR. FAMILY HISTORY: The patient denies any history of easy bruising or bleeding. REVIEW OF SYSTEMS: A 12-point review of systems performed. Pertinent positives and negatives listed in History of Present Illness. CONSTITUTIONAL: Patient denies any recent fevers, chills, or weight loss. HEMATOLOGIC: Denies any history of easy bruising or bleeding. MUSCULOSKELETAL: Denies any neck or back pain. SOCIAL HISTORY: Patient is nonsmoker, nondrinker. She states she lives with her daughter. She is a former smoker, but quit many years ago. PHYSICAL EXAMINATION: VITAL SIGNS: The patient's temperature 98.2, pulse 78, respirations 20, blood pressure 166/80, saturating 98 percent on room air. GENERAL: The patient is a thin elderly female, lying in a hospital bed, eating her breakfast. HEAD AND NECK: The patient is normocephalic, atraumatic. Her neck is supple, nontender. She has no Spurling or Lhermitte sign. Carotid: The patient has 2+ carotid pulses with no bruit. CARDIAC: Regular rate and rhythm. CHEST: Clear to auscultation bilaterally. ABDOMEN: Nontender, nondistended, soft. EXTREMITIES: No clubbing, cyanosis, edema. NEUROLOGIC: The patient is awake, alert. She is oriented to the place, year, month, and stated it was either the 14th or 15, which is only 2 days off from the actual date. She has fluent speech and appears to follow most commands readily and appropriately, though she had some difficulty with more complex exam tests. Cranial nerves 2-12 are serially tested and are intact. Her motor exam is 5/5 bilaterally, upper and lower extremities, with no pronator drift. Her left upper extremity appeared to have some slight decreased range of motion, and there was some perhaps slight possible increased tone, though I did not find any hyperreflexia or Ashley sign. The patient's lower extremity exam appeared normal for manual testing; however, when I attempted to have the patient stand, she moved very slowly and had difficulty standing independently, though she stated that felt uncomfortable putting weight on her left lower extremity. She had no true ataxia or dysmetria with [id number] or finger- to-finger testing, though she was slow at performing these procedures and appeared to have to think somewhat about performing her [id number] testing. LABORATORY AND DIAGNOSTIC DATA: The patient's white count on 03/08/2017 was 3.1, hemoglobin 12.9, platelets 145,000. Her coagulation panel is normal. PT is 2.3, INR 0.91, APTT 29.1. The patient had a normal UA. Her LP, 21 mL had been removed with a glucose of 69, slightly elevated protein of 94. There was only 1 white cell. Review of radiographic results: I reviewed the patient's MRI and CT of the brain as well as the MRI/MRA of the neck as reported in the History of Present Illness. ASSESSMENT AND PLAN: A 77-year-old female with possible normal- pressure hydrocephalus. I discussed the patient's signs, symptoms, physical exam, radiographic findings with her. I was unable to reach the patient's daughter. The patient may have normal-pressure hydrocephalus. She does have significant central volume loss, though this appears to be rather diffuse, rather than supratentorial, also involves intracranial posterior fossa. A better history of the patient's symptoms is also necessary because typically patients do not develop acute normal-pressure hydrocephalus. It would appear the patient has been having some cognitive decline and symptoms with ambulation that may precede simply the last 3 weeks. Reportedly, the patient has been followed as an outpatient for normal-pressure hydrocephalus since April 2016 by a neurologist who reportedly felt that the patient did not have normal-pressure hydrocephalus. A high- volume tap may be useful in assessing whether not the patient has normal-pressure hydrocephalus, given that the patient appears to have had a positive result, though typically objective controlled neurologic studies pre-testing and post testing are recommended rather than simply the observations of the family, as these may have some bias. Nevertheless, the patient herself admits that she feels more lucid. As I have not examined her prior to her tap, I cannot state whether not the patient has actually had significant improvement. In general, normal-pressure hydrocephalus is not an emergent issue and requires thoughtful consideration prior to treatment, given the risk of the surgical treatment. I believe the patient should follow up as an outpatient and further information obtained to assess if the patient has continued neurologic deterioration as the effects of the lumbar puncture should wear off over time, if there was improvement. As well, it would appear unusual for the patient to have a unilateral weakness from normal-pressure hydrocephalus, and it may be the patient had some type of transient ischemic issue. The patient would need to be off aspirin prior to any type of surgical procedure and otherwise be appropriate medically. Her low white count is concerning, and this should also be evaluated. Therefore, I believe the patient should simply follow up as an outpatient in 2 weeks to assess her condition and see if she has continued improvement duration as well as evaluation of her overall medical status. At this time, I could have a thorough discussion with the patient and family regarding the risks, benefits, and alternatives of the procedure, as well as some continuity in assessment of the benefit of her lumbar puncture. Thank you for allowing me to assist in the care of this patient. Dictated By: Ronal Gilbert MD /ej/vikash /Document#: [id number] DONTA
--- NOTE | 2017-03-14 16:48 | CONS ---
Date/Time of Note Date/Time of Note DATE: 03/14/17 TIME: 16:46 Consult Date/Type/Reason Admit Date/Time Mar 07, 2017 at 19:04 Initial Consult Date 03/08/17 Type of Consultation: Neurology Ordering Provider: PATRICIA LEVINE Subjective no events Objective Vital Signs Date Time Temp Pulse Resp B/P Pulse Ox O2 Delivery O2 Flow Rate FiO2 03/14/17 16:10 61 03/14/17 12:07 98.3 20 171/76 98 Intake and Output 03/13/17 03/13/17 03/14/17 15:00 23:00 07:00 Intake Total 1350 ml 530 ml Balance 1350 ml 530 ml Results/Medications Results 24 hrs Laboratory Tests Test 03/13/17 17:28 03/13/17 20:27 03/14/17 08:29 03/14/17 12:23 Bedside Glucose 147 105 102 128 Medications Current Medications Sodium Chloride (NS) 1,000 ml @ 60 mls/hr [id number] IV Last administered on 03/14 03:30; Admin Dose 60 MLS/HR; Start 03/07/17 at 21:00 Ondansetron HCl (Zofran Inj) 4 mg Q6H PRN IV NAUSEA AND/OR VOMITING; Start 04/13 at 21:00 Acetaminophen (Tylenol Tab) 650 mg Q6H PRN PO PAIN LEVEL 1-3 OR FEVER; Start at 21:00 Hydralazine HCl (Apresoline) 10 mg Q4H PRN IV ELEVATED BLOOD PRESSURE Last administered on 03/08/17 15:53; Admin Dose 10 MG; Start 03/08/17 at 01:00 Docusate Sodium (Colace) 100 mg BID PO Last administered on 03/14/17 08:48; Admin Dose 100 MG; Start 03/08/17 at 09:00 Magnesium Hydroxide (Milk Of Mag) 30 ml DAILY PRN PO CONSTIPATION Last administered on 03/08/17 06:09; Admin Dose 30 ML; Start 03/08/17 at 01:30 Diagnostic Test (Pha) (Accu-Chek) 1 ea 02 XX Last administered on 03/11/17 02: 00; Admin Dose 1 EA; Start 03/08/17 at 02:00 Diagnostic Test (Pha) (Accu-Chek) 1 ea 02 XX Last administered on 03/11/17 02: 00; Admin Dose 1 EA; Start 03/08/17 at 02:00 Miscellaneous Information 1 ea NOTE XX ; Start 03/08/17 at 02:30 Glucose (Glutose) 15 gm Q15M PRN PO DECREASED GLUCOSE; Start 03/08/17 at 02:30 Glucose (Glutose) 22.5 gm Q15M PRN PO DECREASED GLUCOSE; Start 03/08/17 at 02: 30 Dextrose (D50w Syringe) 25 ml Q15M PRN IV DECREASED GLUCOSE; Start 03/08/17 at 02:30 Dextrose (D50w Syringe) 50 ml Q15M PRN IV DECREASED GLUCOSE; Start 03/08/17 at 02:30 Glucagon (Glucagen) 1 mg Q15M PRN IM DECREASED GLUCOSE; Start 03/08/17 at 02:30 Glucose (Glutose) 15 gm Q15M PRN BUCCAL DECREASED GLUCOSE; Start 03/08/17 at 02 :30 Pantoprazole (Protonix Tab) 40 mg DAILY@06 PO Last administered on 03/14/17 06 :09; Admin Dose 40 MG; Start 03/09/17 at 06:00 Atorvastatin Calcium (Lipitor) 10 mg HS PO Last administered on 03/13/17 20:30 ; Admin Dose 10 MG; Start 03/08/17 at 21:00 Amlodipine Besylate (Norvasc) 2.5 mg DAILY PO Last administered on 03/14/17 08 :48; Admin Dose 2.5 MG; Start 03/14/17 at 09:00 Lisinopril (Zestril) 40 mg DAILY PO Last administered on 03/14/17 08:48; Admin Dose 40 MG; Start 03/14/17 at 09:00 Assessment/Plan Chief Complaint/Hosp Course Exam awake and alert NAD oriented x3 fluent speech CN: AFSHAN, VFF EOMI no nystagmus palate upgoing uvula midline scm/trap intact Motor: 5/5 Cogwheeling in the left UE Sensory intact throughout Coordination: OK Gait was not assessed. A/P: Probable NPH given response to LP. Per daughter pt is still much better today Daughter asks for rehab prior to d/c home, as multiple steps at home, falls by hx NS saw pt, rec outpt followup. Problems: VERPUKHOVSKIY,SUHAIL MD Mar 14, 2017 16:48
[2017-03-14] MEDS: ATORVASTATIN 10 MG TAB PO SCH (21:03)
[2017-03-15] VITALS (13 sets, daily range): BP systolic 140–171; BP diastolic 75–81; PULSE 62–100; RESP 18–20
[2017-03-15] MEDS: ACCU-CHEK XX SCH ×2 (02:00)
[2017-03-15] MEDS: PANTOPRAZOLE (EC) 40 MG TAB PO SCH (05:21)
[2017-03-15] MEDS: INSULIN ASPART [NOVOLOG] 3 ML PEN SC SCH ×4 (08:00→21:00)
[2017-03-15] MEDS: DOCUSATE SODIUM 100 MG CAP PO SCH ×2 (08:07→21:25)
[2017-03-15] MEDS: LISINOPRIL 20 MG TAB PO SCH (08:08)
[2017-03-15] MEDS: AMLODIPINE 2.5 MG TAB PO SCH (08:08)
--- NOTE | 2017-03-15 14:13 | DS ---
Date/Time of Note Date/Time of Note DATE: 03/15/17 TIME: 13:47 Discharge Summary Admission/Discharge Info Admit Date/Time Mar 07, 2017 at 19:04 Discharge Date/Time March 15, 2017 Discharge Diagnosis 1. Debility possibly secondary to normal pressure hydrocephalus-DC to rehab Patient's condition improved after LP Neurosurgery consultation appreciated, no immediate plans for surgery at this time, neurosurgery can follow at rehab Neurology consultation appreciated 2. Hypertension Continue home meds 3. Diabetes Controlled on metformin A1c at 6.5 4. Hyperlipidemia Continue statin Patient Condition: Fair Hospital Course Patient is a 77-year-old female brought in by her daughter for acute left leg weakness and confusion. Patient does have an outpatient neurologist that she had been seeing for her confusion, patient had been getting progressively worse and recently developed unstable gait and urinary incontinence. She was seen by neurology in-house and after should received an LP condition did improve prompting a neurosurgical evaluation for NPH. Neurosurgery recommendation was to monitor for outpatient follow-up with neurosurgery. Of note brain CT and MRI did not show any hydrocephalus, neck and brain MRA showed no significant findings. Patient was felt to be appropriate for acute rehab and on the day of discharge patient's vitals, labs and physical exam were stable. Home Meds Reported Medications Olmesartan Medoxomil (Benicar) 40 Mg Tablet, 40 MG PO DAILY, #30 TAB 03/07/17 Metformin Hcl* (Metformin Hcl*) 500 Mg Tablet, 500 MG PO DAILY, #30 TAB 03/07/17 Follow-up Plan Follow-up with physicians at inpatient rehab Primary Care Provider Nitish Pastor Time spent on discharge: > 30 minutes JACKSON BARBZOA Mar 15, 2017 14:13
[2017-03-15] MEDS: ATORVASTATIN 10 MG TAB PO SCH (21:25)
[2017-03-15] MEDS: SOD CHLORIDE 0.9% 1,000 ML IV SCH ×2 (21:52)
[2017-03-16] VITALS (12 sets, daily range): BP systolic 140–184; BP diastolic 57–82; PULSE 58–81; RESP 16–19
[2017-03-16] MEDS: ACCU-CHEK XX SCH ×2 (02:14)
[2017-03-16] MEDS: PANTOPRAZOLE (EC) 40 MG TAB PO SCH (06:06)
[2017-03-16] MEDS: INSULIN ASPART [NOVOLOG] 3 ML PEN SC SCH ×4 (08:00→21:00)
[2017-03-16] MEDS: DOCUSATE SODIUM 100 MG CAP PO SCH ×2 (08:07→20:57)
[2017-03-16] MEDS: LISINOPRIL 20 MG TAB PO SCH (08:07)
[2017-03-16] MEDS: AMLODIPINE 2.5 MG TAB PO SCH (08:07)
[2017-03-16] MEDS: hydrALAzine 20 MG INJ IV PRN (08:08)
[2017-03-16] MEDS: ATORVASTATIN 10 MG TAB PO SCH (20:57)
[2017-03-17 08:16] LABS: VDRL, CSF NON-REACTIVE
[2017-03-19 06:26] LABS: HERPES SIMPLEX 1 DNA NOT DETECTED; HERPES SIMPLEX 2 DNA NOT DETECTED; HERPES SIMPLEX PCR SOURCE CEREBROSPINAL FLUID
== END 2017-03-16 22:16 | DRG 57 ==
LOC: E/R 14:23 → MS4 19:04
PROVIDERS: ADMIT Family Medicine; ATTEND Family Medicine
PROC: 009U3ZX Drainage of Spinal Canal, Percutaneous Approach, Diagnostic (ICD-10-PCS; principal; 2017-03-11)
PROC: B01BZZZ Fluoroscopy of Spinal Cord (ICD-10-PCS; 2017-03-11)
DX: G91.2 (Idiopathic) normal pressure hydrocephalus (principal); E11.8 Type 2 diabetes mellitus with unspecified complications; F03.90 Unspecified dementia, unspecified severity, without behavioral disturbance, psychotic disturbance, mood disturbance, and anxiety; F17.210 Nicotine dependence, cigarettes, uncomplicated; G47.33 Obstructive sleep apnea (adult) (pediatric); F32.9 Major depressive disorder, single episode, unspecified; F90.9 Attention-deficit hyperactivity disorder, unspecified type; R32 Unspecified urinary incontinence; E88.81 Metabolic syndrome and other insulin resistance; E78.5 Hyperlipidemia, unspecified; E78.00 Pure hypercholesterolemia, unspecified
CPT/HCPCS: 70450; 70544; 70549; 70551; 71010; 80048; 80053; 80061; 81003; 82040; 82042; 82784; 82945; 82962; 83036; 84157; 84443; 84484; 85025; 85610; 85730; 86592; 87070; 87529; 89051; 92507; 92523; 92610; 93005; 93306; 97116; 97162; 97167; 97530; C9113; J0360; J1815; J7030; P9612

== ENCOUNTER 2017-03-16 15:16 | Inpatient (IN) | payer MEDICARE, OTHER ==
[~2017-03-16] VITALS: Ht 167.6 cm; Wt 61.9 kg
[~2017-03-16 15:16] MED LIST: METF500T4 PO; OLME40TA14 PO
[2017-03-16] MEDS ORDERED: GLUCAGON 1 MG INJ IM PRN (23:45)
[2017-03-16] MEDS ORDERED: GLUCOSE GEL 15 GRAM TUBE PO PRN ×2 (23:45)
[2017-03-16] MEDS ORDERED: ACETAMINOPHEN 325 MG TAB PO PRN (23:45)
[2017-03-16] MEDS ORDERED: DEXTROSE 50% 50 ML SYRINGE IV PRN ×2 (23:45)
[2017-03-16] MEDS ORDERED: GLUCOSE GEL 15 GRAM TUBE BUCCAL PRN (23:45)
[2017-03-17] MEDS ORDERED: ACETAMINOPHEN 325 MG TAB PO PRN
[2017-03-17] MEDS ORDERED: BISACODYL 10 MG SUPP PR PRN
[2017-03-17] MEDS ORDERED: MAGNESIUM HYDROXIDE 30ML CUP PO PRN
[2017-03-17 00:16] VITALS: BP 145/71; RESP 18
[2017-03-17 02:00] VITALS: BP 138/68; RESP 18
[2017-03-17 07:33] LABS: ADD UMIC NO; UR ASCORBIC ACID NEGATIVE (NEGATIVE); UR BILIRUBIN (Dip) NEGATIVE (NEGATIVE); UR BLOOD (Dip) NEGATIVE (NEGATIVE); UR CLARITY CLEAR (CLEAR); UR COLOR YELLOW (YELLOW); UR GLUCOSE (Dip) NEGATIVE (NEGATIVE); UR KETONES (Dip) NEGATIVE (NEGATIVE); UR LEUKOCYTE ESTERASE (Dip) NEGATIVE Leu/ul (NEGATIVE); UR NITRITE (Dip) NEGATIVE (NEGATIVE); UR SPECIFIC GRAVITY (Dip) 1.015 (1.003-1.030); UR TOTAL PROTEIN (Dip) NEGATIVE (NEGATIVE); UR UROBILINOGEN (Dip) NEGATIVE (NEGATIVE)
[2017-03-17 07:39] LABS: EOSINOPHILS # 0.1 10^3/ul (0.0-0.5); EOSINOPHILS % 1.3 % (0.0-7.0); HEMATOCRIT 40.5 % (37.0-47.0); HEMOGLOBIN 12.9 g/dl (12.0-16.0); LYMPHOCYTES # 1.4 10^3/ul (0.8-2.9); LYMPHOCYTES % 37.2 % (15.0-51.0); MEAN CORPUSCULAR HEMOGLOBIN 26.3 pg (29.0-33.0); MEAN CORPUSCULAR HGB CONC 31.9 g/dl (32.0-37.0); MEAN CORPUSCULAR VOLUME 82.7 fl (82.0-101.0); MEAN PLATELET VOLUME 12.2 fl (7.4-10.4); MONOCYTE # 0.3 10^3/ul (0.3-0.9); MONOCYTES % 7.6 % (0.0-11.0); NEUTROPHILS % 52.6 % (39.0-77.0); PLATELET COUNT 157 10^3/UL (140-415); RED CELL DISTRIBUTION WIDTH 13.7 % (11.5-14.5); WHITE BLOOD COUNT 3.8 10^3/ul (4.8-10.8)
[2017-03-17 08:00] LABS: ALBUMIN 3.7 g/dl (3.3-4.9); ALBUMIN/GLOBULIN RATIO 1.19; BILIRUBIN,INDIRECT 0.4 mg/dl (0-1.1); BILIRUBIN,TOTAL 0.4 mg/dl (0.2-1.3); CALCIUM 10.5 mg/dl (8.4-10.2); CREATININE 0.88 mg/dl (0.44-1.00); POTASSIUM 3.7 mmol/L (3.5-5.1); TOTAL PROTEIN 6.8 g/dl (6.1-8.1)
[2017-03-17] MEDS: metFORMIN 500 MG TAB PO SCH ×2 (09:02→17:45)
[2017-03-17] MEDS: LISINOPRIL 20 MG TAB PO SCH (09:02)
[2017-03-17] MEDS: AMLODIPINE 5 MG TAB PO SCH (09:03)
[2017-03-17] MEDS: DOCUSATE SODIUM 100 MG CAP PO SCH ×2 (09:03→20:57)
--- NOTE | 2017-03-17 11:11 | CONS ---
Date/Time of Note Date/Time of Note DATE: 03/17/17 TIME: 11:05 Assessment/Plan Assessment/Plan Chief Complaint/Hosp Course 77 yo female with NPH admitted to ARU for further rehabilitation 2/2 debility. 1. Debility secondary to possible normal pressure hydrocephalus. Status post LP -Neurology/Neurosurgery consultation appreciated, no immediate plans for surgery at this time-Needs outpt NS follow-up. --PT/OT eval & treatment 2. Hypertension -Continue Lisinopril/Amlodipine. 3. DMII-Controlled. -Continue metformin 4. Hyperlipidemia -Continue statin 5. Neutropenia,Mild- Stable -Monitor Patient was seen in collaboration with . Problems: Consultation Date/Type/Reason Admit Date/Time Mar 16, 2017 at 23:18 Reason for Consultation Internal Medicine Hx of Present Illness This is a 77-year-old female with a past medical history of essential hypertension, type 2 diabetes, hyperlipidemia, who was admitted at [facility] secondary to progressive left leg weakness and confusion. She had neurology evaluation and had LP with probable normal pressure hydrocephalus. Patient was evaluated by by neurosurgery and recommendation was outpatient follow-up. However, patient was found with high risk for fall and with progressive debility requiring further rehabilitation. Therefore, patient was accepted to acute rehab for further complex interdisciplinary rehabilitation. Currently, patient denies any chest pain, palpitation, shortness of breath, nausea, vomiting, abdominal pain, confusion, dizziness or any focal deficit. Her labs are grossly unremarkable except for mild neutropenia. Vital signs within acceptable range. A 1 2point ROS was assessed and is negative other than what is mentioned in the HPI. Past Medical History See HPI Past Surgical History See HPI. Social History No history of alcohol/smoking or illicit drug use. Smoking Status: Never smoker Exam/Review of Systems Vital Signs Vitals Vital Signs Date Time Temp Pulse Resp B/P Pulse Ox O2 Delivery O2 Flow Rate FiO2 03/17/17 02:00 98.7 74 18 138/68 95 Intake and Output 03/16/17 03/16/17 03/17/17 14:59 22:59 06:59 Intake Total 500 ml Balance 500 ml Exam General:Elderly thin looking female, not in any acute distress . HEENT: Normocephalic, Atraumatic, No laceration or hematoma; Eyes: PEERL, Conjunctiva clear, Anicteric sclera Neck: Supple without any lymphadenopathy, nontender, no JVD, no carotid bruits, trachea midline, no thyromegaly Cardiac: S1, S2 auscultated, regular rhythm and rate, no mumurs or gallop Pulmonary: Normal respiratory effort. Chest clear to auscultation bilaterally, no adventitious breath sounds GI: Abdomen normal to inspection. Soft, non- distended, no masses, no rebound tenderness or guarding. Bowel sounds active on all four quadrants Genitourinary: Deferred Extremities:Weakness LLE+ No cyanosis, clubbing, or edema. Pulses [2+] bilaterally. Full ROM on all four extremities. No focal weakness appreciated. Neurologic: Mild cognitive impairment+. Alert to person, place, time, and situation. Affect appropriate, intact sensation. Skin: Clean,dry, and intact. No ecchymosis, no rashes, or lesions Results Result Diagram: 03/17/17 0649 03/17/17 0649 Results 24 hrs Laboratory Tests Test 03/17/17 06:20 03/17/17 06:49 Urine Color YELLOW Urine Clarity CLEAR Urine pH 5.0 Urine Specific [place] 1.015 Urine Ketones NEGATIVE Urine Nitrite NEGATIVE Urine Bilirubin NEGATIVE Urine Urobilinogen NEGATIVE Urine Leukocyte Esterase NEGATIVE Urine Hemoglobin NEGATIVE Urine Glucose NEGATIVE Urine Total Protein NEGATIVE White Blood Count 3.8 #L Red Blood Count 4.90 Hemoglobin 12.9 Hematocrit 40.5 Mean Corpuscular Volume 82.7 Mean Corpuscular Hemoglobin 26.3 L Mean Corpuscular Hemoglobin Concent 31.9 L Red Cell Distribution Width 13.7 Platelet Count 157 Mean Platelet Volume 12.2 H Neutrophils % 52.6 Lymphocytes % 37.2 Monocytes % 7.6 Eosinophils % 1.3 Basophils % 1.0 Nucleated Red Blood Cells % 0.0 Neutrophils # 2.0 Lymphocytes # 1.4 Monocytes # 0.3 Eosinophils # 0.1 Basophils # 0.0 Nucleated Red Blood Cells # 0.0 Sodium Level 140 Potassium Level 3.7 Chloride Level 105 Carbon Dioxide Level 28 Anion Gap 11 Blood Urea Nitrogen 14 Creatinine 0.88 Glucose Level 113 Calcium Level 10.5 H Total Bilirubin 0.4 Direct Bilirubin 0.00 Indirect Bilirubin 0.4 Aspartate Amino Transf (AST/SGOT) 22 Alanine Aminotransferase (ALT/SGPT) 24 Alkaline Phosphatase 54 Total Protein 6.8 Albumin 3.7 Globulin 3.10 Albumin/Globulin Ratio 1.19 Medications Medications Current Medications Amlodipine Besylate (Norvasc) 5 mg DAILY PO Last administered on 03/17/17 09: 03; Admin Dose 5 MG; Start 03/17/17 at 09:00 Lisinopril (Zestril) 40 mg DAILY PO Last administered on 03/17/17 09:02; Admin Dose 40 MG; Start 03/17/17 at 09:00 Clonidine (Catapres) 0.2 mg Q8H PRN PO SBP ABOVE 170mmHg; Start 03/16/17 at 23: 45 Magnesium Hydroxide (Milk Of Mag) 30 ml DAILY PRN PO CONSTIPATION; Start at 23:45 Miscellaneous Information 1 ea NOTE XX ; Start 03/16/17 at 23:45 Glucose (Glutose) 15 gm Q15M PRN PO DECREASED GLUCOSE; Start 03/16/17 at 23:45 Glucose (Glutose) 22.5 gm Q15M PRN PO DECREASED GLUCOSE; Start 03/16/17 at 23: 45 Dextrose (D50w Syringe) 25 ml Q15M PRN IV DECREASED GLUCOSE; Start 03/16/17 at 23:45 Dextrose (D50w Syringe) 50 ml Q15M PRN IV DECREASED GLUCOSE; Start 03/16/17 at 23:45 Glucagon (Glucagen) 1 mg Q15M PRN IM DECREASED GLUCOSE; Start 03/16/17 at 23:45 Glucose (Glutose) 15 gm Q15M PRN BUCCAL DECREASED GLUCOSE; Start 03/16/17 at 23 :45 Acetaminophen (Tylenol Tab) 650 mg Q6H PRN PO PAIN AND OR ELEVATED TEMP; Start 03/16/17 at 23:45 Atorvastatin Calcium (Lipitor) 10 mg DAILY@21 PO ; Start 03/17/17 at 21:00 Docusate Sodium (Colace) 100 mg BID PO Last administered on 03/17/17 09:03; Admin Dose 100 MG; Start 03/17/17 at 09:00 Senna (Senokot) 1 tab HS PO ; Start 03/17/17 at 21:00 Magnesium Hydroxide (Milk Of Mag) 30 ml BID PRN PO CONSTIPATION; Start at 00:00 Lactulose (Enulose) 20 gm DAILY PRN PO CONSTIPATION; Start 03/17/17 at 00:00 Bisacodyl (Dulcolax Supp) 10 mg DAILY PRN [place] CONSTIPATION; Start 03/17/17 at 00 :00 Acetaminophen (Tylenol Tab) 650 mg Q4H PRN PO PAIN; Start 03/17/17 at 00:00 DARRYL WILDE NP Mar 17, 2017 11:11
--- NOTE | 2017-03-17 13:59 | CONS ---
DATE OF ADMISSION: 03/16/2017 DATE OF CONSULTATION: 03/17/2017 REHABILITATION POST ADMISSION PHYSICIAN EVALUATION: REHABILITATION IMPAIRMENT CATEGORY: Normal-pressure hydrocephalus, encephalopathy. ACTIVE COMORBIDITIES: 1. Hypertension. 2. Diabetes mellitus. 3. Hyperlipidemia. 4. Impairments in self-care, mobility and cognition. HISTORY OF PRESENT ILLNESS: The patient is a pleasant 77-year- old female with a history of diabetes mellitus, hypertension and hyperlipidemia, who was admitted to [facility] with left-sided weakness in addition to confusion and incontinence. The patient reportedly had been seen by a neurologist as an outpatient and the patient's symptoms were noted to progressively will worsen. Head CT was performed and was negative for bleed. The patient did receive a lumbar puncture by the neurologist and felt to likely have normal- pressure hydrocephalus. The patient has been noted to have significant impairments in self-care, mobility, as compared to baseline and has been cleared to transfer to the rehabilitation unit for comprehensive interdisciplinary rehab care. FUNCTIONAL HISTORY: Prior to recent admission, patient was independent in self-care tasks and mobility. Currently, patient requires moderate assist for self-care and mobility tasks with cues for safety. I have reviewed the preadmission screen and patient's current functional status is consistent with the preadmission screen. SOCIAL HISTORY: Patient lives at home in a home with a [address] She does have family support and she hopes to return there upon discharge. PAST MEDICAL HISTORY: 1. Hypertension. 2. Diabetes mellitus. 3. Hyperlipidemia. CURRENT MEDICATION: 1. Tylenol p.r.n. 2. Lipitor 10 mg p.o. at bedtime. 3. Colace 100 mg p.o. b.i.d. 4. Zestril 40 mg p.o. daily. 5. Milk of Magnesia p.r.n. 6. Metformin 500 mg p.o. b.i.d. 7. Norvasc 5 mg p.o. daily. 8. Lisinopril 40 mg p.o. daily. 9. Clonidine p.r.n. ALLERGIES: PATIENT WITH NO KNOWN DRUG ALLERGIES. PHYSICAL EXAMINATION: GENERAL APPEARANCE: Patient is currently afebrile with stable vital signs. HEENT: Extraocular motion intact. Oropharynx clear. NECK: Supple. LUNGS: Clear anteriorly. HEART: S1, S2. ABDOMEN: Soft, nontender. Positive bowel sounds. NEUROLOGIC: She is awake and alert. She is oriented to person and hospital. She does have impaired short-term memory with one out of three object recall at 5 minutes. She can follow simple one-step commands. She demonstrates antigravity strength in bilateral upper extremity and lower extremity. She does have impaired dynamic balance. PLAN: The patient has been admitted for comprehensive interdisciplinary acute rehab and is anticipated to tolerate 3 hours of daily therapy in divided doses for at least 5 out of 7 days a week. The treatment plan will include: 1. Physical therapy to focus on bed mobility, transfers and household ambulation with goal of having patient reach a standby assist level. Will also have the goal of patient being able to ascend and descend the 22 stair steps safely. 2. Occupational therapy to focus on hygiene, grooming, dressing, bathing and toileting activities with goal of having patient reach standby assist level. 3. Rehabilitation nursing for carry over therapeutic interventions, the goal of continent to bowel and bladder, and the goal of patient and family education with regards to the aforementioned issues. 4. Rehabilitation nursing for carry over therapeutic interventions. 5. Rehabilitation speech therapy with the goal of full cognitive assessment and retraining in addition to assessment for dysphagia with goal of having patient return to baseline cognition. ESTIMATED LENGTH OF STAY: 14 days. DISPOSITION GOAL: Home Rehabilitation Barrier: Cognition Intervention For Barier: Speech Therapy I acknowledge I performed a full physical examination on this patient within 24 hours of admission to the rehabilitation unit and believe the patient is a good candidate for comprehensive interdisciplinary rehab care and is anticipated to make reasonable goals in a reasonable period of time as outlined above. Dictated By: Adria Petersen MD /ej/geri /Document#: [id number] DONTA
--- NOTE | 2017-03-17 20:22 | CONS ---
DATE OF ADMISSION: 03/16/2017 DATE OF CONSULTATION: 03/17/2017 TYPE OF CONSULTATION: Psychological. REFERRING PHYSICIAN: Adria Petersen MD CONSULTING PSYCHOLOGIST: Fabian De La Rosa, PhD REASON FOR CONSULTATION: This consultation was requested by Dr. Waqar Petersen in order to evaluate the cognitive and emotional function of this patient related to her present medical condition. HISTORY OF PRESENT ILLNESS: The patient is a 77-year-old female. The patient does have a history of essential hypertension, type 2 diabetes, hyperlipidemia, and was admitted to [facility] secondary to acute left leg weakness and confusion. The patient did have a neurological evaluation and it was felt that she has a probable normal pressure hydrocephalus. Patient was cleared medically and then transferred to the acute rehabilitation unit for acute multidisciplinary rehabilitation. The patient is motivated to get better and does want to return to her previous level of functioning. SOCIAL HISTORY: Patient lives in a home in [place] with her daughter. The patient does want to return there after discharge. MEDICATION: The patient is currently not on any psychotropic medication. SUBSTANCE USE: The patient reports that she does not smoke. The patient reports that she does have an occasional glass of wine. MENTAL STATUS EXAMINATION: APPEARANCE: The patient was seen in bed. She is of average height and weight. The patient is right handed. BEHAVIOR: The patient was cooperative during the consultation. The patient did attempt to answer all questions presented to by the interviewer. MOOD AND AFFECT: The patient's mood appears to be somewhat depressed. Affect does appear to be slightly anxious. PERCEPTION: The patient reports no hallucinations or delusions. The patient was of average height and weight. The patient was alert to person, place, situation, and time. MEMORY AND COGNITION: The patient's memory and cognition appear to be slightly impaired. She was able to say the name of the hospital. She was able to say the month and the year. The patient was able to say who the governor of the state [facility] is and who the mayor of [place] is but did say the President of [facility] was [place] and then when asked again did come up with [place] again as the answer. The patient was unable to spell world backwards, and she was able to do only 1 serial 7 subtraction from 100 and not go any further. It is likely that this is some dysfunction that relates to her normal-pressure hydrocephalus and probably will clear as she gets better. INTELLIGENCE: Intelligence appears to fall in the average range when she is functioning well. INSIGHT: Fair. JUDGMENT: Fair. THOUGHT CONTENT: The patient is concerned about her present medical condition. The patient does want to return home and be as independent and functional as she can be. DISCUSSION: The patient can likely benefit from some cognitive/behavioral psychotherapy while she is on the unit. Psychotherapy would focus on her underlying level of depression related to all her medical problems. DIAGNOSTIC IMPRESSION: 1. 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 2. 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 Thank you very much, Dr. Waqar Petersen, for referring this individual. Please do not hesitate to call if you have additional questions. Dictated By: Fabian De La Rosa, PHD /ej/joan /Document#: [id number] MTDD
[2017-03-17] MEDS: ATORVASTATIN 10 MG TAB PO SCH (20:57)
[2017-03-17] MEDS: SENNA TAB PO SCH (20:57)
[2017-03-17 21:00] VITALS: BP 163/74; RESP 18
[2017-03-18 07:30] VITALS: BP 143/78; RESP 18
[2017-03-18] MEDS: metFORMIN 500 MG TAB PO SCH ×2 (08:33→09:26)
[2017-03-18] MEDS: LISINOPRIL 20 MG TAB PO SCH (09:25)
[2017-03-18] MEDS: DOCUSATE SODIUM 100 MG CAP PO SCH ×2 (09:27→20:40)
[2017-03-18] MEDS: AMLODIPINE 5 MG TAB PO SCH (09:27)
--- NOTE | 2017-03-18 12:32 | CONS ---
Date/Time of Note Date/Time of Note DATE: 03/18/17 TIME: 12:30 Consult Date/Type/Reason Admit Date/Time Mar 16, 2017 at 23:18 Initial Consult Date Subjective Comfortable Objective pulm-cta mod/min Vital Signs Date Time Temp Pulse Resp B/P Pulse Ox O2 Delivery O2 Flow Rate FiO2 03/18/17 07:30 98.3 70 18 143/78 96 Intake and Output 03/17/17 03/17/17 03/18/17 15:00 23:00 07:00 Intake Total 240 ml 800 ml 360 ml Output Total 600 ml Balance 240 ml 200 ml 360 ml Results/Medications Result Diagram: 03/17/17 0649 03/17/17 0649 Results 24 hrs Laboratory Tests Test 03/18/17 08:33 03/18/17 12:24 Bedside Glucose 116 89 Medications Current Medications Amlodipine Besylate (Norvasc) 5 mg DAILY PO Last administered on 03/18/17 09: 27; Admin Dose 5 MG; Start 03/17/17 at 09:00 Lisinopril (Zestril) 40 mg DAILY PO Last administered on 03/18/17 09:25; Admin Dose 40 MG; Start 03/17/17 at 09:00 Clonidine (Catapres) 0.2 mg Q8H PRN PO SBP ABOVE 170mmHg; Start 03/16/17 at 23: 45 Magnesium Hydroxide (Milk Of Mag) 30 ml DAILY PRN PO CONSTIPATION; Start at 23:45 Miscellaneous Information 1 ea NOTE XX ; Start 03/16/17 at 23:45 Glucose (Glutose) 15 gm Q15M PRN PO DECREASED GLUCOSE; Start 03/16/17 at 23:45 Glucose (Glutose) 22.5 gm Q15M PRN PO DECREASED GLUCOSE; Start 03/16/17 at 23: 45 Dextrose (D50w Syringe) 25 ml Q15M PRN IV DECREASED GLUCOSE; Start 03/16/17 at 23:45 Dextrose (D50w Syringe) 50 ml Q15M PRN IV DECREASED GLUCOSE; Start 03/16/17 at 23:45 Glucagon (Glucagen) 1 mg Q15M PRN IM DECREASED GLUCOSE; Start 03/16/17 at 23:45 Glucose (Glutose) 15 gm Q15M PRN BUCCAL DECREASED GLUCOSE; Start 03/16/17 at 23 :45 Acetaminophen (Tylenol Tab) 650 mg Q6H PRN PO PAIN AND OR ELEVATED TEMP; Start 03/16/17 at 23:45 Atorvastatin Calcium (Lipitor) 10 mg DAILY@21 PO Last administered on 20:57; Admin Dose 10 MG; Start 03/17/17 at 21:00 Docusate Sodium (Colace) 100 mg BID PO Last administered on 03/18/17 09:27; Admin Dose 100 MG; Start 03/17/17 at 09:00 Senna (Senokot) 1 tab HS PO Last administered on 03/17/17 20:57; Admin Dose 1 TAB; Start 03/17/17 at 21:00 Magnesium Hydroxide (Milk Of Mag) 30 ml BID PRN PO CONSTIPATION; Start at 00:00 Lactulose (Enulose) 20 gm DAILY PRN PO CONSTIPATION; Start 03/17/17 at 00:00 Bisacodyl (Dulcolax Supp) 10 mg DAILY PRN [place] CONSTIPATION; Start 03/17/17 at 00 :00 Acetaminophen (Tylenol Tab) 650 mg Q4H PRN PO PAIN; Start 03/17/17 at 00:00 Assessment/Plan Additional Assessment/Plan Rehab- Normal-pressure hydrocephalus, encephalopathy. Tolerating rehab program well Hypertension. Diabetes mellitus. Hyperlipidemia. ILIANA ADKINS MD Mar 18, 2017 12:32
--- NOTE | 2017-03-18 13:10 | CONS ---
Date/Time of Note Date/Time of Note DATE: 03/18/17 TIME: 13:09 Assessment/Plan Assessment/Plan Chief Complaint/Hosp Course 77 yo female with NPH admitted to ARU for further rehabilitation 2/2 debility. 1. Debility secondary to possible normal pressure hydrocephalus. Status post LP -Neurology/Neurosurgery consultation appreciated, no immediate plans for surgery at this time-Needs outpt NS follow-up. --PT/OT eval & treatment 2. Hypertension -On Lisinopril/Amlodipine. 3. DMII-Controlled. -On metformin 4. Hyperlipidemia -On statin 5. Neutropenia,Mild- Stable -Monitor Patient was seen in collaboration with . Problems: Consultation Date/Type/Reason Admit Date/Time Mar 16, 2017 at 23:18 Initial Consult Date 24 HR Interval Summary Free Text/Dictation No acute distress. participates in PT. Exam/Review of Systems Vital Signs Vitals Vital Signs Date Time Temp Pulse Resp B/P Pulse Ox O2 Delivery O2 Flow Rate FiO2 03/18/17 07:30 98.3 70 18 143/78 96 Intake and Output 03/17/17 03/17/17 03/18/17 15:00 23:00 07:00 Intake Total 240 ml 800 ml 360 ml Output Total 600 ml Balance 240 ml 200 ml 360 ml Exam General:Elderly thin looking female, not in any acute distress . HEENT: Normocephalic, Atraumatic, No laceration or hematoma; Eyes: PEERL, Conjunctiva clear, Anicteric sclera Neck: Supple without any lymphadenopathy, nontender, no JVD, no carotid bruits, trachea midline, no thyromegaly Cardiac: S1, S2 auscultated, regular rhythm and rate, no mumurs or gallop Pulmonary: Normal respiratory effort. Chest clear to auscultation bilaterally, no adventitious breath sounds GI: Abdomen normal to inspection. Soft, non- distended, no masses, no rebound tenderness or guarding. Bowel sounds active on all four quadrants Genitourinary: Deferred Extremities:Weakness LLE+ No cyanosis, clubbing, or edema. Pulses [2+] bilaterally. Full ROM on all four extremities. No focal weakness appreciated. Neurologic: Mild cognitive impairment+. Alert to person, place, time, and situation. Affect appropriate, intact sensation. Skin: Clean,dry, and intact. No ecchymosis, no rashes, or lesions Results Result Diagram: 03/17/17 0649 03/17/17 0649 Results 24 hrs Laboratory Tests Test 03/18/17 08:33 03/18/17 12:24 Bedside Glucose 116 89 Medications Medications Current Medications Amlodipine Besylate (Norvasc) 5 mg DAILY PO Last administered on 03/18/17 09: 27; Admin Dose 5 MG; Start 03/17/17 at 09:00 Lisinopril (Zestril) 40 mg DAILY PO Last administered on 03/18/17 09:25; Admin Dose 40 MG; Start 03/17/17 at 09:00 Clonidine (Catapres) 0.2 mg Q8H PRN PO SBP ABOVE 170mmHg; Start 03/16/17 at 23: 45 Magnesium Hydroxide (Milk Of Mag) 30 ml DAILY PRN PO CONSTIPATION; Start at 23:45 Miscellaneous Information 1 ea NOTE XX ; Start 03/16/17 at 23:45 Glucose (Glutose) 15 gm Q15M PRN PO DECREASED GLUCOSE; Start 03/16/17 at 23:45 Glucose (Glutose) 22.5 gm Q15M PRN PO DECREASED GLUCOSE; Start 03/16/17 at 23: 45 Dextrose (D50w Syringe) 25 ml Q15M PRN IV DECREASED GLUCOSE; Start 03/16/17 at 23:45 Dextrose (D50w Syringe) 50 ml Q15M PRN IV DECREASED GLUCOSE; Start 03/16/17 at 23:45 Glucagon (Glucagen) 1 mg Q15M PRN IM DECREASED GLUCOSE; Start 03/16/17 at 23:45 Glucose (Glutose) 15 gm Q15M PRN BUCCAL DECREASED GLUCOSE; Start 03/16/17 at 23 :45 Acetaminophen (Tylenol Tab) 650 mg Q6H PRN PO PAIN AND OR ELEVATED TEMP; Start 03/16/17 at 23:45 Atorvastatin Calcium (Lipitor) 10 mg DAILY@21 PO Last administered on 20:57; Admin Dose 10 MG; Start 03/17/17 at 21:00 Docusate Sodium (Colace) 100 mg BID PO Last administered on 03/18/17 09:27; Admin Dose 100 MG; Start 03/17/17 at 09:00 Senna (Senokot) 1 tab HS PO Last administered on 03/17/17t 20:57; Admin Dose 1 TAB; Start 03/17/17 at 21:00 Magnesium Hydroxide (Milk Of Mag) 30 ml BID PRN PO CONSTIPATION; Start at 00:00 Lactulose (Enulose) 20 gm DAILY PRN PO CONSTIPATION; Start 03/17/17 at 00:00 Bisacodyl (Dulcolax Supp) 10 mg DAILY PRN [place] CONSTIPATION; Start 03/17/17 at 00 :00 Acetaminophen (Tylenol Tab) 650 mg Q4H PRN PO PAIN; Start 03/17/17 at 00:00 DARRYL WILDE NP Mar 18, 2017 13:10
[2017-03-18] MEDS: ATORVASTATIN 10 MG TAB PO SCH (20:40)
[2017-03-18] MEDS: SENNA TAB PO SCH (20:40)
[2017-03-19 02:22] VITALS: BP 138/62; RESP 18
[2017-03-19 07:00] VITALS: BP 161/75; RESP 18
[2017-03-19] MEDS: LACTULOSE 30ML CUP PO PRN (09:01)
[2017-03-19] MEDS: AMLODIPINE 5 MG TAB PO SCH (09:01)
[2017-03-19] MEDS: metFORMIN 500 MG TAB PO SCH ×3 (09:01→17:34)
[2017-03-19] MEDS: LISINOPRIL 20 MG TAB PO SCH (09:01)
[2017-03-19] MEDS: DOCUSATE SODIUM 100 MG CAP PO SCH ×2 (09:01→20:34)
--- NOTE | 2017-03-19 11:18 | CONS ---
Date/Time of Note Date/Time of Note DATE: 03/19/17 TIME: 11:17 Assessment/Plan Assessment/Plan Chief Complaint/Hosp Course 77 yo female with NPH admitted to ARU for further rehabilitation 2/2 debility. 1. Debility secondary to possible normal pressure hydrocephalus. Status post LP -Post Neurology/Neurosurgery eval, no immediate plans for surgery at this time- Needs outpt NS follow-up. --PT/OT eval & treatment 2. Hypertension -On Lisinopril/Amlodipine. 3. DMII-Controlled. -On metformin 4. Hyperlipidemia -On statin 5. Neutropenia,Mild- Stable -Monitor Patient was seen in collaboration with . Problems: Consultation Date/Type/Reason Admit Date/Time Mar 16, 2017 at 23:18 24 HR Interval Summary Free Text/Dictation No acute changes. Exam/Review of Systems Vital Signs Vitals Vital Signs Date Time Temp Pulse Resp B/P Pulse Ox O2 Delivery O2 Flow Rate FiO2 03/19/17 02:22 98.5 73 18 138/62 93 Intake and Output 03/18/17 03/18/17 03/19/17 15:00 23:00 07:00 Intake Total 720 ml Balance 720 ml Exam General:Elderly thin looking female, not in any acute distress . HEENT: Normocephalic, Atraumatic, No laceration or hematoma; Eyes: PEERL, Conjunctiva clear, Anicteric sclera Neck: Supple without any lymphadenopathy, nontender, no JVD, no carotid bruits, trachea midline, no thyromegaly Cardiac: S1, S2 auscultated, regular rhythm and rate, no mumurs or gallop Pulmonary: Normal respiratory effort. Chest clear to auscultation bilaterally, no adventitious breath sounds GI: Abdomen normal to inspection. Soft, non- distended, no masses, no rebound tenderness or guarding. Bowel sounds active on all four quadrants Genitourinary: Deferred Extremities:Weakness LLE+ No cyanosis, clubbing, or edema. Pulses [2+] bilaterally. Full ROM on all four extremities. No focal weakness appreciated. Neurologic: Mild cognitive impairment+. Alert to person, place, time, and situation. Affect appropriate, intact sensation. Skin: Clean,dry, and intact. No ecchymosis, no rashes, or lesions Results Result Diagram: 03/17/17 0649 03/17/17 0649 Results 24 hrs Laboratory Tests Test 03/18/17 12:24 03/19/17 07:57 Bedside Glucose 89 113 Medications Medications Current Medications Amlodipine Besylate (Norvasc) 5 mg DAILY PO Last administered on 03/19/17 09: 01; Admin Dose 5 MG; Start 03/17/17 at 09:00 Lisinopril (Zestril) 40 mg DAILY PO Last administered on 03/19/17 09:01; Admin Dose 40 MG; Start 03/17/17 at 09:00 Clonidine (Catapres) 0.2 mg Q8H PRN PO SBP ABOVE 170mmHg; Start 03/16/17 at 23: 45 Magnesium Hydroxide (Milk Of Mag) 30 ml DAILY PRN PO CONSTIPATION; Start at 23:45 Miscellaneous Information 1 ea NOTE XX ; Start 03/16/17 at 23:45 Glucose (Glutose) 15 gm Q15M PRN PO DECREASED GLUCOSE; Start 03/16/17 at 23:45 Glucose (Glutose) 22.5 gm Q15M PRN PO DECREASED GLUCOSE; Start 03/16/17 at 23: 45 Dextrose (D50w Syringe) 25 ml Q15M PRN IV DECREASED GLUCOSE; Start 03/16/17 at 23:45 Dextrose (D50w Syringe) 50 ml Q15M PRN IV DECREASED GLUCOSE; Start 03/16/17 at 23:45 Glucagon (Glucagen) 1 mg Q15M PRN IM DECREASED GLUCOSE; Start 03/16/17 at 23:45 Glucose (Glutose) 15 gm Q15M PRN BUCCAL DECREASED GLUCOSE; Start 03/16/17 at 23 :45 Acetaminophen (Tylenol Tab) 650 mg Q6H PRN PO PAIN AND OR ELEVATED TEMP; Start 03/16/17 at 23:45 Atorvastatin Calcium (Lipitor) 10 mg DAILY@21 PO Last administered on 20:40; Admin Dose 10 MG; Start 03/17/17 at 21:00 Docusate Sodium (Colace) 100 mg BID PO Last administered on 03/19/17 09:01; Admin Dose 100 MG; Start 03/17/17 at 09:00 Senna (Senokot) 1 tab HS PO Last administered on 03/18/17 20:40; Admin Dose 1 TAB; Start 03/17/17 at 21:00 Magnesium Hydroxide (Milk Of Mag) 30 ml BID PRN PO CONSTIPATION; Start at 00:00 Lactulose (Enulose) 20 gm DAILY PRN PO CONSTIPATION Last administered on 09:01; Admin Dose 20 GM; Start 03/17/17 at 00:00 Bisacodyl (Dulcolax Supp) 10 mg DAILY PRN [place] CONSTIPATION; Start 03/17/17 at 00 :00 Acetaminophen (Tylenol Tab) 650 mg Q4H PRN PO PAIN; Start 03/17/17 at 00:00 DARRYL WILDE NP Mar 19, 2017 11:18
--- NOTE | 2017-03-19 12:09 | CONS ---
Date/Time of Note Date/Time of Note DATE: 03/19/17 TIME: 12:09 Consult Date/Type/Reason Admit Date/Time Mar 16, 2017 at 23:18 Subjective Comfortable Objective pulm-cta min assist transfer and ambulation Vital Signs Date Time Temp Pulse Resp B/P Pulse Ox O2 Delivery O2 Flow Rate FiO2 03/19/17 02:22 98.5 73 18 138/62 93 Intake and Output 03/18/17 03/18/17 03/19/17 15:00 23:00 07:00 Intake Total 720 ml Balance 720 ml Results/Medications Result Diagram: 03/17/17 0649 03/17/17 0649 Results 24 hrs Laboratory Tests Test 03/18/17 12:24 03/19/17 07:57 Bedside Glucose 89 113 Medications Current Medications Amlodipine Besylate (Norvasc) 5 mg DAILY PO Last administered on 03/19/17 09: 01; Admin Dose 5 MG; Start 03/17/17 at 09:00 Lisinopril (Zestril) 40 mg DAILY PO Last administered on 03/19/17 09:01; Admin Dose 40 MG; Start 03/17/17 at 09:00 Clonidine (Catapres) 0.2 mg Q8H PRN PO SBP ABOVE 170mmHg; Start 03/16/17 at 23: 45 Magnesium Hydroxide (Milk Of Mag) 30 ml DAILY PRN PO CONSTIPATION; Start at 23:45 Miscellaneous Information 1 ea NOTE XX ; Start 03/16/17 at 23:45 Glucose (Glutose) 15 gm Q15M PRN PO DECREASED GLUCOSE; Start 03/16/17 at 23:45 Glucose (Glutose) 22.5 gm Q15M PRN PO DECREASED GLUCOSE; Start 03/16/17 at 23: 45 Dextrose (D50w Syringe) 25 ml Q15M PRN IV DECREASED GLUCOSE; Start 03/16/17 at 23:45 Dextrose (D50w Syringe) 50 ml Q15M PRN IV DECREASED GLUCOSE; Start 03/16/17 at 23:45 Glucagon (Glucagen) 1 mg Q15M PRN IM DECREASED GLUCOSE; Start 03/16/17 at 23:45 Glucose (Glutose) 15 gm Q15M PRN BUCCAL DECREASED GLUCOSE; Start 03/16/17 at 23 :45 Acetaminophen (Tylenol Tab) 650 mg Q6H PRN PO PAIN AND OR ELEVATED TEMP; Start 03/16/17 at 23:45 Atorvastatin Calcium (Lipitor) 10 mg DAILY@21 PO Last administered on 20:40; Admin Dose 10 MG; Start 03/17/17 at 21:00 Docusate Sodium (Colace) 100 mg BID PO Last administered on 03/19/17 09:01; Admin Dose 100 MG; Start 03/17/17 at 09:00 Senna (Senokot) 1 tab HS PO Last administered on 03/18/17 20:40; Admin Dose 1 TAB; Start 03/17/17 at 21:00 Magnesium Hydroxide (Milk Of Mag) 30 ml BID PRN PO CONSTIPATION; Start at 00:00 Lactulose (Enulose) 20 gm DAILY PRN PO CONSTIPATION Last administered on 09:01; Admin Dose 20 GM; Start 03/17/17 at 00:00 Bisacodyl (Dulcolax Supp) 10 mg DAILY PRN [place] CONSTIPATION; Start 03/17/17 at 00 :00 Acetaminophen (Tylenol Tab) 650 mg Q4H PRN PO PAIN; Start 03/17/17 at 00:00 Assessment/Plan Additional Assessment/Plan Rehab- Normal-pressure hydrocephalus, encephalopathy. Continue rehab program Hypertension. Diabetes mellitus. Hyperlipidemia. ILIANA ADKINS MD Mar 19, 2017 12:09
[2017-03-19 20:00] VITALS: BP 168/77; RESP 18
[2017-03-19] MEDS: ATORVASTATIN 10 MG TAB PO SCH (20:34)
[2017-03-19] MEDS: SENNA TAB PO SCH (20:34)
[2017-03-20 02:00] VITALS: BP 140/73; RESP 18
[2017-03-20] MEDS: metFORMIN 500 MG TAB PO SCH (08:45)
[2017-03-20] MEDS: DOCUSATE SODIUM 100 MG CAP PO SCH ×2 (08:45→20:41)
[2017-03-20] MEDS: AMLODIPINE 5 MG TAB PO SCH (08:45)
[2017-03-20] MEDS: LISINOPRIL 20 MG TAB PO SCH (08:45)
--- NOTE | 2017-03-20 11:31 | CONS ---
Date/Time of Note Date/Time of Note DATE: 03/20/17 TIME: 11:30 Consult Date/Type/Reason Admit Date/Time Mar 16, 2017 at 23:18 Subjective Comfortable Objective pulm-cta min assist 30 feet Vital Signs Date Time Temp Pulse Resp B/P Pulse Ox O2 Delivery O2 Flow Rate FiO2 03/20/17 02:00 98.3 71 18 140/73 97 Intake and Output 03/19/17 03/19/17 03/20/17 15:00 23:00 07:00 Intake Total 600 ml 550 ml Output Total 200 ml Balance 400 ml 550 ml Results/Medications Result Diagram: 03/17/17 0649 03/17/17 0649 Medications Current Medications Amlodipine Besylate (Norvasc) 5 mg DAILY PO Last administered on 03/20/17 08: 45; Admin Dose 5 MG; Start 03/17/17 at 09:00 Lisinopril (Zestril) 40 mg DAILY PO Last administered on 03/20/17 08:45; Admin Dose 40 MG; Start 03/17/17 at 09:00 Clonidine (Catapres) 0.2 mg Q8H PRN PO SBP ABOVE 170mmHg; Start 03/16/17 at 23: 45 Magnesium Hydroxide (Milk Of Mag) 30 ml DAILY PRN PO CONSTIPATION; Start at 23:45 Miscellaneous Information 1 ea NOTE XX ; Start 03/16/17 at 23:45 Glucose (Glutose) 15 gm Q15M PRN PO DECREASED GLUCOSE; Start 03/16/17 at 23:45 Glucose (Glutose) 22.5 gm Q15M PRN PO DECREASED GLUCOSE; Start 03/16/17 at 23: 45 Dextrose (D50w Syringe) 25 ml Q15M PRN IV DECREASED GLUCOSE; Start 03/16/17 at 23:45 Dextrose (D50w Syringe) 50 ml Q15M PRN IV DECREASED GLUCOSE; Start 03/16/17 at 23:45 Glucagon (Glucagen) 1 mg Q15M PRN IM DECREASED GLUCOSE; Start 03/16/17 at 23:45 Glucose (Glutose) 15 gm Q15M PRN BUCCAL DECREASED GLUCOSE; Start 03/16/17 at 23 :45 Acetaminophen (Tylenol Tab) 650 mg Q6H PRN PO PAIN AND OR ELEVATED TEMP; Start 03/16/17 at 23:45 Atorvastatin Calcium (Lipitor) 10 mg DAILY@21 PO Last administered on 20:34; Admin Dose 10 MG; Start 03/17/17 at 21:00 Docusate Sodium (Colace) 100 mg BID PO Last administered on 03/20/17 08:45; Admin Dose 100 MG; Start 03/17/17 at 09:00 Senna (Senokot) 1 tab HS PO Last administered on 03/19/17 20:34; Admin Dose 1 TAB; Start 03/17/17 at 21:00 Magnesium Hydroxide (Milk Of Mag) 30 ml BID PRN PO CONSTIPATION; Start at 00:00 Lactulose (Enulose) 20 gm DAILY PRN PO CONSTIPATION Last administered on 09:01; Admin Dose 20 GM; Start 03/17/17 at 00:00 Bisacodyl (Dulcolax Supp) 10 mg DAILY PRN [place] CONSTIPATION; Start 03/17/17 at 00 :00 Acetaminophen (Tylenol Tab) 650 mg Q4H PRN PO PAIN; Start 03/17/17 at 00:00 Assessment/Plan Additional Assessment/Plan Rehab- Normal-pressure hydrocephalus, encephalopathy. Continue rehab plan Hypertension. Diabetes mellitus. Hyperlipidemia. ILIANA ADKINS MD Mar 20, 2017 11:31
--- NOTE | 2017-03-20 13:21 | CONS ---
Date/Time of Note Date/Time of Note DATE: 03/20/17 TIME: 13:19 Assessment/Plan Assessment/Plan Additional Assessment/Plan Assessment and plan. 1. Patient admitted for rehab after undergoing lumbar puncture for normal pressure hydrocephalus doing very well. Continue rehab. Consultation Date/Type/Reason Admit Date/Time Mar 16, 2017 at 23:18 Initial Consult Date Type of Consultation: Internal medicine 24 HR Interval Summary Free Text/Dictation Patient condition stable. Remains awake alert. Has remained hemodynamically stable. General exam; elderly woman, awake alert, currently in no distress. Exam/Review of Systems Vital Signs Vitals Vital Signs Date Time Temp Pulse Resp B/P Pulse Ox O2 Delivery O2 Flow Rate FiO2 03/20/17 02:00 98.3 71 18 140/73 97 Intake and Output 03/19/17 03/19/17 03/20/17 14:59 22:59 06:59 Intake Total 600 ml 550 ml Output Total 200 ml Balance 400 ml 550 ml Exam HEENT exam; supple neck, no JVD. No lymphadenopathy. Midline trachea. No thyromegaly. Chest exam; clear to auscultation. S1-S2 audible, no murmurs. Regular rhythm. Abdomen exam; soft, nontender. No organomegaly. Bowel sounds audible. Extremity exam; no edema. TRACE CLERK exam; no deficit. Results Result Diagram: 03/17/1749 03/17/17 0649 Results 24 hrs Laboratory Tests Test 03/20/17 12:02 Bedside Glucose 93 Medications Medications Current Medications Amlodipine Besylate (Norvasc) 5 mg DAILY PO Last administered on 03/20/17 08: 45; Admin Dose 5 MG; Start 03/17/17 at 09:00 Lisinopril (Zestril) 40 mg DAILY PO Last administered on 03/20/17 08:45; Admin Dose 40 MG; Start 03/17/17 at 09:00 Clonidine (Catapres) 0.2 mg Q8H PRN PO SBP ABOVE 170mmHg; Start 03/16/17 at 23: 45 Magnesium Hydroxide (Milk Of Mag) 30 ml DAILY PRN PO CONSTIPATION; Start at 23:45 Miscellaneous Information 1 ea NOTE XX ; Start 03/16/17 at 23:45 Glucose (Glutose) 15 gm Q15M PRN PO DECREASED GLUCOSE; Start 03/16/17 at 23:45 Glucose (Glutose) 22.5 gm Q15M PRN PO DECREASED GLUCOSE; Start 03/16/17 at 23: 45 Dextrose (D50w Syringe) 25 ml Q15M PRN IV DECREASED GLUCOSE; Start 03/16/17 at 23:45 Dextrose (D50w Syringe) 50 ml Q15M PRN IV DECREASED GLUCOSE; Start 03/16/17 at 23:45 Glucagon (Glucagen) 1 mg Q15M PRN IM DECREASED GLUCOSE; Start 03/16/17 at 23:45 Glucose (Glutose) 15 gm Q15M PRN BUCCAL DECREASED GLUCOSE; Start 03/16/17 at 23 :45 Acetaminophen (Tylenol Tab) 650 mg Q6H PRN PO PAIN AND OR ELEVATED TEMP; Start 03/16/17 at 23:45 Atorvastatin Calcium (Lipitor) 10 mg DAILY@21 PO Last administered on 20:34; Admin Dose 10 MG; Start 03/17/17 at 21:00 Docusate Sodium (Colace) 100 mg BID PO Last administered on 03/20/17 08:45; Admin Dose 100 MG; Start 03/17/17 at 09:00 Senna (Senokot) 1 tab HS PO Last administered on 03/19/17 20:34; Admin Dose 1 TAB; Start 03/17/17 at 21:00 Magnesium Hydroxide (Milk Of Mag) 30 ml BID PRN PO CONSTIPATION; Start at 00:00 Lactulose (Enulose) 20 gm DAILY PRN PO CONSTIPATION Last administered on 09:01; Admin Dose 20 GM; Start 03/17/17 at 00:00 Bisacodyl (Dulcolax Supp) 10 mg DAILY PRN [place] CONSTIPATION; Start 03/17/17 at 00 :00 Acetaminophen (Tylenol Tab) 650 mg Q4H PRN PO PAIN; Start 03/17/17 at 00:00 PHILLY SANTOYO Mar 20, 2017 13:21
[2017-03-20 14:00] VITALS: BP 147/69; RESP 18
[2017-03-20] MEDS: MAGNESIUM HYDROXIDE 30ML CUP PO PRN (17:17)
[2017-03-20 19:45] VITALS: BP 151/70; RESP 20
[2017-03-20] MEDS: ATORVASTATIN 10 MG TAB PO SCH (20:40)
[2017-03-20] MEDS: SENNA TAB PO SCH (20:41)
[2017-03-21 02:00] VITALS: BP 140/72; PULSE 68; RESP 16
[2017-03-21 07:00] VITALS: BP 184/74; RESP 18
[2017-03-21 07:30] VITALS: BP 184/74; PULSE 55; RESP 18
[2017-03-21] MEDS: AMLODIPINE 5 MG TAB PO SCH (09:38)
[2017-03-21] MEDS: LISINOPRIL 20 MG TAB PO SCH (09:39)
[2017-03-21] MEDS: DOCUSATE SODIUM 100 MG CAP PO SCH ×2 (09:39→20:41)
[2017-03-21 10:30] VITALS: BP 140/80
[2017-03-21] MEDS: LACTULOSE 30ML CUP PO PRN (14:48)
[2017-03-21 20:00] VITALS: BP 145/70; RESP 18
[2017-03-21] MEDS: SENNA TAB PO SCH (20:41)
[2017-03-21] MEDS: ATORVASTATIN 10 MG TAB PO SCH (20:41)
[2017-03-22 02:00] VITALS: BP 135/73; RESP 18
[2017-03-22 07:30] VITALS: BP 148/71; RESP 20
[2017-03-22] MEDS: AMLODIPINE 5 MG TAB PO SCH (09:29)
[2017-03-22] MEDS: DOCUSATE SODIUM 100 MG CAP PO SCH ×2 (09:29→20:56)
[2017-03-22] MEDS: LISINOPRIL 20 MG TAB PO SCH (09:30)
--- NOTE | 2017-03-22 09:38 | CONS ---
Date/Time of Note Date/Time of Note DATE: 03/22/17 TIME: 09:37 Consult Date/Type/Reason Admit Date/Time Mar 16, 2017 at 23:18 Type of Consultation: Internal medicine Objective Vital Signs Date Time Temp Pulse Resp B/P Pulse Ox O2 Delivery O2 Flow Rate FiO2 03/22/17 02:00 98.4 65 18 135/73 95 03/21/17 07:30 Room Air Intake and Output 03/21/17 03/21/17 03/22/17 15:00 23:00 07:00 Intake Total 800 ml Output Total 600 ml Balance 200 ml INTERDISCIPLINARY TEAM CONFERENCE BOWEL- Cont BLADDER-Cont SKIN- intact OT- DRESSING-mod BATHING-mod TOILETING-mod PT- BED MOBILITY-min TRANSFERS-min AMBULATION-min 70 SPEECH- COGNITION-mod DYPHAGIA A/P- Interdisciplinary team conference held today. Please see interdisciplinary sheet. Working toward d.c. on 03/26 with post discharge follow up of physical therapy, occupational therapy. Results/Medications Results 24 hrs Laboratory Tests Test 03/22/17 07:55 Bedside Glucose 101 Medications Current Medications Amlodipine Besylate (Norvasc) 5 mg DAILY PO Last administered on 03/22/17 09: 29; Admin Dose 5 MG; Start 03/17/17 at 09:00 Lisinopril (Zestril) 40 mg DAILY PO Last administered on 03/22/17 09:30; Admin Dose 40 MG; Start 03/17/17 at 09:00 Clonidine (Catapres) 0.2 mg Q8H PRN PO SBP ABOVE 170mmHg; Start 03/16/17 at 23: 45 Magnesium Hydroxide (Milk Of Mag) 30 ml DAILY PRN PO CONSTIPATION Last administered on 03/20/17 17:17; Admin Dose 30 ML; Start 03/16/17 at 23:45 Miscellaneous Information 1 ea NOTE XX ; Start 03/16/17 at 23:45 Glucose (Glutose) 15 gm Q15M PRN PO DECREASED GLUCOSE; Start 03/16/17 at 23:45 Glucose (Glutose) 22.5 gm Q15M PRN PO DECREASED GLUCOSE; Start 03/16/17 at 23: 45 Dextrose (D50w Syringe) 25 ml Q15M PRN IV DECREASED GLUCOSE; Start 03/16/17 at 23:45 Dextrose (D50w Syringe) 50 ml Q15M PRN IV DECREASED GLUCOSE; Start 03/16/17 at 23:45 Glucagon (Glucagen) 1 mg Q15M PRN IM DECREASED GLUCOSE; Start 03/16/17 at 23:45 Glucose (Glutose) 15 gm Q15M PRN BUCCAL DECREASED GLUCOSE; Start 03/16/17 at 23 :45 Acetaminophen (Tylenol Tab) 650 mg Q6H PRN PO PAIN AND OR ELEVATED TEMP; Start 03/16/17 at 23:45 Atorvastatin Calcium (Lipitor) 10 mg DAILY@21 PO Last administered on 20:41; Admin Dose 10 MG; Start 03/17/17 at 21:00 Docusate Sodium (Colace) 100 mg BID PO Last administered on 03/22/17 09:29; Admin Dose 100 MG; Start 03/17/17 at 09:00 Senna (Senokot) 1 tab HS PO Last administered on 03/21/17 20:41; Admin Dose 1 TAB; Start 03/17/17 at 21:00 Magnesium Hydroxide (Milk Of Mag) 30 ml BID PRN PO CONSTIPATION; Start at 00:00 Lactulose (Enulose) 20 gm DAILY PRN PO CONSTIPATION Last administered on 14:48; Admin Dose 20 GM; Start 03/17/17 at 00:00 Bisacodyl (Dulcolax Supp) 10 mg DAILY PRN [place] CONSTIPATION; Start 03/17/17 at 00 :00 Acetaminophen (Tylenol Tab) 650 mg Q4H PRN PO PAIN; Start 03/17/17 at 00:00 ILIANA ADKINS MD Mar 22, 2017 09:38
--- NOTE | 2017-03-22 15:38 | PN ---
Date/Time of Note Date/Time of Note DATE: 03/22/17 TIME: 15:37 Assessment/Plan VTE Prophylaxis VTE Prophylaxis Intervention: ambulation Lines/Catheters IV C[facility]ter Type (from [facility] Urinary Cath still in place: No Assessment/Plan Chief Complaint/Hosp Course 77 yo female with NPH admitted to ARU for further rehabilitation 2/2 debility. 1. Debility secondary to possible normal pressure hydrocephalus. Status post LP -Post Neurology/Neurosurgery eval, no immediate plans for surgery at this time- Needs outpt NS follow-up. --PT/OT eval & treatment 2. Hypertension -On Lisinopril/Amlodipine. 3. DMII-Controlled. -On metformin 4. Hyperlipidemia -On statin 5. Neutropenia,Mild- Stable -Monitor Patient was seen in collaboration with . Problems: Subjective 24 Hr Interval Summary Free Text/Dictation No acute distress. Doing well,participates with PT. Exam/Review of Systems Vital Signs Vitals Vital Signs Date Time Temp Pulse Resp B/P Pulse Ox O2 Delivery O2 Flow Rate FiO2 03/22/17 07:30 98.0 56 20 148/71 98 03/21/17 07:30 Room Air Intake and Output 03/21/17 03/21/17 03/22/17 15:00 23:00 07:00 Intake Total 800 ml Output Total 600 ml Balance 200 ml Exam General:Elderly thin looking female, not in any acute distress . HEENT: Normocephalic, Atraumatic, No laceration or hematoma; Eyes: PEERL, Conjunctiva clear, Anicteric sclera Neck: Supple without any lymphadenopathy, nontender, no JVD, no carotid bruits, trachea midline, no thyromegaly Cardiac: S1, S2 auscultated, regular rhythm and rate, no mumurs or gallop Pulmonary: Normal respiratory effort. Chest clear to auscultation bilaterally, no adventitious breath sounds GI: Abdomen normal to inspection. Soft, non- distended, no masses, no rebound tenderness or guarding. Bowel sounds active on all four quadrants Genitourinary: Deferred Extremities:Weakness LLE+ No cyanosis, clubbing, or edema. Pulses [2+] bilaterally. Full ROM on all four extremities. No focal weakness appreciated. Neurologic: Mild cognitive impairment+. Alert to person, place, time, and situation. Affect appropriate, intact sensation. Skin: Clean,dry, and intact. No ecchymosis, no rashes, or lesions Results Results 24 hrs Laboratory Tests Test 03/22/17 07:55 Bedside Glucose 101 Medications Medications Current Medications Amlodipine Besylate (Norvasc) 5 mg DAILY PO Last administered on 03/22/17 09: 29; Admin Dose 5 MG; Start 03/17/17 at 09:00 Lisinopril (Zestril) 40 mg DAILY PO Last administered on 03/22/17 09:30; Admin Dose 40 MG; Start 03/17/17 at 09:00 Clonidine (Catapres) 0.2 mg Q8H PRN PO SBP ABOVE 170mmHg; Start 03/16/17 at 23: 45 Magnesium Hydroxide (Milk Of Mag) 30 ml DAILY PRN PO CONSTIPATION Last administered on 03/20/17 17:17; Admin Dose 30 ML; Start 03/16/17 at 23:45 Miscellaneous Information 1 ea NOTE XX ; Start 03/16/17 at 23:45 Glucose (Glutose) 15 gm Q15M PRN PO DECREASED GLUCOSE; Start 03/16/17 at 23:45 Glucose (Glutose) 22.5 gm Q15M PRN PO DECREASED GLUCOSE; Start 03/16/17 at 23: 45 Dextrose (D50w Syringe) 25 ml Q15M PRN IV DECREASED GLUCOSE; Start 03/16/17 at 23:45 Dextrose (D50w Syringe) 50 ml Q15M PRN IV DECREASED GLUCOSE; Start 03/16/17 at 23:45 Glucagon (Glucagen) 1 mg Q15M PRN IM DECREASED GLUCOSE; Start 03/16/17 at 23:45 Glucose (Glutose) 15 gm Q15M PRN BUCCAL DECREASED GLUCOSE; Start 03/16/17 at 23 :45 Acetaminophen (Tylenol Tab) 650 mg Q6H PRN PO PAIN AND OR ELEVATED TEMP; Start 03/16/17 at 23:45 Atorvastatin Calcium (Lipitor) 10 mg DAILY@21 PO Last administered on 20:41; Admin Dose 10 MG; Start 03/17/17 at 21:00 Docusate Sodium (Colace) 100 mg BID PO Last administered on 03/22/17 09:29; Admin Dose 100 MG; Start 03/17/17 at 09:00 Senna (Senokot) 1 tab HS PO Last administered on 03/21/17 20:41; Admin Dose 1 TAB; Start 03/17/17 at 21:00 Magnesium Hydroxide (Milk Of Mag) 30 ml BID PRN PO CONSTIPATION; Start at 00:00 Lactulose (Enulose) 20 gm DAILY PRN PO CONSTIPATION Last administered on 14:48; Admin Dose 20 GM; Start 03/17/17 at 00:00 Bisacodyl (Dulcolax Supp) 10 mg DAILY PRN [place] CONSTIPATION; Start 03/17/17 at 00 :00 Acetaminophen (Tylenol Tab) 650 mg Q4H PRN PO PAIN; Start 03/17/17 at 00:00 DARRYL WILDE NP Mar 22, 2017 15:38
--- NOTE | 2017-03-22 16:52 | CONS ---
Date/Time of Note Date/Time of Note DATE: 03/22/17 TIME: 16:48 Consult Date/Type/Reason Admit Date/Time Mar 16, 2017 at 23:18 Initial Consult Date Type of Consultation: Neurology Subjective received LP for possible NPH reported improvement in her gait previously no new changes Objective Vital Signs Date Time Temp Pulse Resp B/P Pulse Ox O2 Delivery O2 Flow Rate FiO2 03/22/17 07:30 98.0 56 20 148/71 98 03/21/17 07:30 Room Air Intake and Output 03/21/17 03/21/17 03/22/17 15:00 23:00 07:00 Intake Total 800 ml Output Total 600 ml Balance 200 ml Exam awake and alert oriented to self hospital recognizes examiner follows commands masked facies CN: II-XII intact Motor: mild slowing on left compared to right FTN testing 5-/5 strength on left Reflexes 1+ throughout toes down Coord no ataxia Results/Medications Results 24 hrs Laboratory Tests Test 03/22/17 07:55 Bedside Glucose 101 Medications Current Medications Amlodipine Besylate (Norvasc) 5 mg DAILY PO Last administered on 03/22/17 09: 29; Admin Dose 5 MG; Start 03/17/17 at 09:00 Lisinopril (Zestril) 40 mg DAILY PO Last administered on 03/22/17 09:30; Admin Dose 40 MG; Start 03/17/17 at 09:00 Clonidine (Catapres) 0.2 mg Q8H PRN PO SBP ABOVE 170mmHg; Start 03/16/17 at 23: 45 Magnesium Hydroxide (Milk Of Mag) 30 ml DAILY PRN PO CONSTIPATION Last administered on 03/20/17 17:17; Admin Dose 30 ML; Start 03/16/17 at 23:45 Miscellaneous Information 1 ea NOTE XX ; Start 03/16/17 at 23:45 Glucose (Glutose) 15 gm Q15M PRN PO DECREASED GLUCOSE; Start 03/16/17 at 23:45 Glucose (Glutose) 22.5 gm Q15M PRN PO DECREASED GLUCOSE; Start 03/16/17 at 23: 45 Dextrose (D50w Syringe) 25 ml Q15M PRN IV DECREASED GLUCOSE; Start 03/16/17 at 23:45 Dextrose (D50w Syringe) 50 ml Q15M PRN IV DECREASED GLUCOSE; Start 03/16/17 at 23:45 Glucagon (Glucagen) 1 mg Q15M PRN IM DECREASED GLUCOSE; Start 03/16/17 at 23:45 Glucose (Glutose) 15 gm Q15M PRN BUCCAL DECREASED GLUCOSE; Start 03/16/17 at 23 :45 Acetaminophen (Tylenol Tab) 650 mg Q6H PRN PO PAIN AND OR ELEVATED TEMP; Start 03/16/17 at 23:45 Atorvastatin Calcium (Lipitor) 10 mg DAILY@21 PO Last administered on 20:41; Admin Dose 10 MG; Start 03/17/17 at 21:00 Docusate Sodium (Colace) 100 mg BID PO Last administered on 03/22/17 09:29; Admin Dose 100 MG; Start 03/17/17 at 09:00 Senna (Senokot) 1 tab HS PO Last administered on 03/21/17 20:41; Admin Dose 1 TAB; Start 03/17/17 at 21:00 Magnesium Hydroxide (Milk Of Mag) 30 ml BID PRN PO CONSTIPATION; Start at 00:00 Lactulose (Enulose) 20 gm DAILY PRN PO CONSTIPATION Last administered on 14:48; Admin Dose 20 GM; Start 03/17/17 at 00:00 Bisacodyl (Dulcolax Supp) 10 mg DAILY PRN [place] CONSTIPATION; Start 03/17/17 at 00 :00 Acetaminophen (Tylenol Tab) 650 mg Q4H PRN PO PAIN; Start 03/17/17 at 00:00 Assessment/Plan Chief Complaint/Hosp Course 77 year old female with cognitive decline seen during hospitalization for left sided weakness with enlarged ventricles received large volume tap with reported gait improvement. symptoms are now stable no further worsening admitted to [facility]. Recommend: follow up outpatient with neurology neurosurgery to consider shunt placement further outpatient cognitive w/u will contact daughter to discuss Problems: CLARK GORE MD Mar 22, 2017 16:52
[2017-03-22 20:00] VITALS: BP 154/67; RESP 18
[2017-03-22] MEDS: SENNA TAB PO SCH (20:56)
[2017-03-22] MEDS: ATORVASTATIN 10 MG TAB PO SCH (20:56)
[2017-03-23 02:00] VITALS: BP 136/73; RESP 18
[2017-03-23 07:00] VITALS: BP 149/70; RESP 18
[2017-03-23 08:00] VITALS: BP 149/70; PULSE 85; RESP 20
[2017-03-23] MEDS: DOCUSATE SODIUM 100 MG CAP PO SCH ×2 (08:34→20:13)
[2017-03-23] MEDS: LISINOPRIL 20 MG TAB PO SCH (08:35)
[2017-03-23] MEDS: AMLODIPINE 5 MG TAB PO SCH (08:44)
--- NOTE | 2017-03-23 11:23 | CONS ---
Date/Time of Note Date/Time of Note DATE: 03/23/17 TIME: 11:20 Consult Date/Type/Reason Admit Date/Time Mar 16, 2017 at 23:18 Type of Consultation: Neurology Subjective Comfortable Objective pulm-cta min 80 feet Vital Signs Date Time Temp Pulse Resp B/P Pulse Ox O2 Delivery O2 Flow Rate FiO2 03/23/17 08:00 98.3 85 20 149/70 96 Room Air Results/Medications Medications Current Medications Amlodipine Besylate (Norvasc) 5 mg DAILY PO Last administered on 03/23/17 08: 44; Admin Dose 5 MG; Start 03/17/17 at 09:00 Lisinopril (Zestril) 40 mg DAILY PO Last administered on 03/23/17 08:35; Admin Dose 40 MG; Start 03/17/17 at 09:00 Clonidine (Catapres) 0.2 mg Q8H PRN PO SBP ABOVE 170mmHg; Start 03/16/17 at 23: 45 Magnesium Hydroxide (Milk Of Mag) 30 ml DAILY PRN PO CONSTIPATION Last administered on 03/20/17 17:17; Admin Dose 30 ML; Start 03/16/17 at 23:45 Miscellaneous Information 1 ea NOTE XX ; Start 03/16/17 at 23:45 Glucose (Glutose) 15 gm Q15M PRN PO DECREASED GLUCOSE; Start 03/16/17 at 23:45 Glucose (Glutose) 22.5 gm Q15M PRN PO DECREASED GLUCOSE; Start 03/16/17 at 23: 45 Dextrose (D50w Syringe) 25 ml Q15M PRN IV DECREASED GLUCOSE; Start 03/16/17 at 23:45 Dextrose (D50w Syringe) 50 ml Q15M PRN IV DECREASED GLUCOSE; Start 03/16/17 at 23:45 Glucagon (Glucagen) 1 mg Q15M PRN IM DECREASED GLUCOSE; Start 03/16/17 at 23:45 Glucose (Glutose) 15 gm Q15M PRN BUCCAL DECREASED GLUCOSE; Start 03/16/17 at 23 :45 Acetaminophen (Tylenol Tab) 650 mg Q6H PRN PO PAIN AND OR ELEVATED TEMP; Start 03/16/17 at 23:45 Atorvastatin Calcium (Lipitor) 10 mg DAILY@21 PO Last administered on 20:56; Admin Dose 10 MG; Start 03/17/17 at 21:00 Docusate Sodium (Colace) 100 mg BID PO Last administered on 03/23/17 08:34; Admin Dose 100 MG; Start 03/17/17 at 09:00 Senna (Senokot) 1 tab HS PO Last administered on 03/22/17 20:56; Admin Dose 1 TAB; Start 03/17/17 at 21:00 Magnesium Hydroxide (Milk Of Mag) 30 ml BID PRN PO CONSTIPATION; Start at 00:00 Lactulose (Enulose) 20 gm DAILY PRN PO CONSTIPATION Last administered on 14:48; Admin Dose 20 GM; Start 03/17/17 at 00:00 Bisacodyl (Dulcolax Supp) 10 mg DAILY PRN [place] CONSTIPATION; Start 03/17/17 at 00 :00 Acetaminophen (Tylenol Tab) 650 mg Q4H PRN PO PAIN; Start 03/17/17 at 00:00 Assessment/Plan Additional Assessment/Plan Rehab- Normal-pressure hydrocephalus, encephalopathy. Continue increased rehab activities as tolerated Hypertension. Diabetes mellitus. Hyperlipidemia. ILIANA ADKINS MD Mar 23, 2017 11:23
--- NOTE | 2017-03-23 14:37 | CONS ---
Date/Time of Note Date/Time of Note DATE: 03/23/17 TIME: 14:35 Assessment/Plan Assessment/Plan Chief Complaint/Hosp Course 77 yo female with NPH admitted to ARU for further rehabilitation 2/2 debility. 1. Debility secondary to possible normal pressure hydrocephalus. Status post LP -Post Neurology/Neurosurgery eval, no immediate plans for surgery at this time- Needs outpt NS follow-up. --PT/OT eval & treatment 2. Hypertension -On Lisinopril/Amlodipine. 3. DMII-Controlled on diet. A1c 6.5. -Recommend outpatient repeat A1c in 2 months. 4. Hyperlipidemia -On statin 5. Neutropenia,Mild- Stable -Monitor Patient was seen in collaboration with . Problems: Consultation Date/Type/Reason Admit Date/Time Mar 16, 2017 at 23:18 Type of Consultation: Neurology 24 HR Interval Summary Free Text/Dictation No acute distress. Sitting up in wheelchair. Exam/Review of Systems Vital Signs Vitals Vital Signs Date Time Temp Pulse Resp B/P Pulse Ox O2 Delivery O2 Flow Rate FiO2 03/23/17 08:00 98.3 85 20 149/70 96 Room Air Exam General:Elderly thin looking female, not in any acute distress . HEENT: Normocephalic, Atraumatic, No laceration or hematoma; Eyes: PEERL, Conjunctiva clear, Anicteric sclera Neck: Supple without any lymphadenopathy, nontender, no JVD, no carotid bruits, trachea midline, no thyromegaly Cardiac: S1, S2 auscultated, regular rhythm and rate, no mumurs or gallop Pulmonary: Normal respiratory effort. Chest clear to auscultation bilaterally, no adventitious breath sounds GI: Abdomen normal to inspection. Soft, non- distended, no masses, no rebound tenderness or guarding. Bowel sounds active on all four quadrants Genitourinary: Deferred Extremities:Weakness LLE+ No cyanosis, clubbing, or edema. Pulses [2+] bilaterally. Full ROM on all four extremities. No focal weakness appreciated. Neurologic: Mild cognitive impairment+. Alert to person, place, time, and situation. Affect appropriate, intact sensation. Skin: Clean,dry, and intact. No ecchymosis, no rashes, or lesions Medications Medications Current Medications Amlodipine Besylate (Norvasc) 5 mg DAILY PO Last administered on 03/23/17 08: 44; Admin Dose 5 MG; Start 03/17/17 at 09:00 Lisinopril (Zestril) 40 mg DAILY PO Last administered on 03/23/17 08:35; Admin Dose 40 MG; Start 03/17/17 at 09:00 Clonidine (Catapres) 0.2 mg Q8H PRN PO SBP ABOVE 170mmHg; Start 03/16/17 at 23: 45 Magnesium Hydroxide (Milk Of Mag) 30 ml DAILY PRN PO CONSTIPATION Last administered on 03/20/17 17:17; Admin Dose 30 ML; Start 03/16/17 at 23:45 Miscellaneous Information 1 ea NOTE XX ; Start 03/16/17 at 23:45 Glucose (Glutose) 15 gm Q15M PRN PO DECREASED GLUCOSE; Start 03/16/17 at 23:45 Glucose (Glutose) 22.5 gm Q15M PRN PO DECREASED GLUCOSE; Start 03/16/17 at 23: 45 Dextrose (D50w Syringe) 25 ml Q15M PRN IV DECREASED GLUCOSE; Start 03/16/17 at 23:45 Dextrose (D50w Syringe) 50 ml Q15M PRN IV DECREASED GLUCOSE; Start 03/16/17 at 23:45 Glucagon (Glucagen) 1 mg Q15M PRN IM DECREASED GLUCOSE; Start 03/16/17 at 23:45 Glucose (Glutose) 15 gm Q15M PRN BUCCAL DECREASED GLUCOSE; Start 03/16/17 at 23 :45 Acetaminophen (Tylenol Tab) 650 mg Q6H PRN PO PAIN AND OR ELEVATED TEMP; Start 03/16/17 at 23:45 Atorvastatin Calcium (Lipitor) 10 mg DAILY@21 PO Last administered on 20:56; Admin Dose 10 MG; Start 03/17/17 at 21:00 Docusate Sodium (Colace) 100 mg BID PO Last administered on 03/23/17 08:34; Admin Dose 100 MG; Start 03/17/17 at 09:00 Senna (Senokot) 1 tab HS PO Last administered on 03/22/17 20:56; Admin Dose 1 TAB; Start 03/17/17 at 21:00 Magnesium Hydroxide (Milk Of Mag) 30 ml BID PRN PO CONSTIPATION; Start at 00:00 Lactulose (Enulose) 20 gm DAILY PRN PO CONSTIPATION Last administered on t 14:48; Admin Dose 20 GM; Start 03/17/17 at 00:00 Bisacodyl (Dulcolax Supp) 10 mg DAILY PRN [place] CONSTIPATION; Start 03/17/17 at 00 :00 Acetaminophen (Tylenol Tab) 650 mg Q4H PRN PO PAIN; Start 03/17/17 at 00:00 DARRYL WILDE NP Mar 23, 2017 14:37 DARRYL WILDE NP Mar 23, 2017 14:37
[2017-03-23 20:00] VITALS: BP 162/74; RESP 18
[2017-03-23] MEDS: ATORVASTATIN 10 MG TAB PO SCH (20:13)
[2017-03-23] MEDS: SENNA TAB PO SCH (20:13)
[2017-03-24 08:16] VITALS: BP 157/81; RESP 18
[2017-03-24] MEDS: DOCUSATE SODIUM 100 MG CAP PO SCH ×2 (09:35→20:28)
[2017-03-24] MEDS: LISINOPRIL 20 MG TAB PO SCH (09:36)
[2017-03-24] MEDS: AMLODIPINE 5 MG TAB PO SCH (09:37)
--- NOTE | 2017-03-24 12:19 | CONS ---
Date/Time of Note Date/Time of Note DATE: 03/24/17 TIME: 12:17 Consult Date/Type/Reason Admit Date/Time Mar 16, 2017 at 23:18 Type of Consultation: Neurology Subjective Comfortable Objective pulm-cta Min Asist Vital Signs Date Time Temp Pulse Resp B/P Pulse Ox O2 Delivery O2 Flow Rate FiO2 03/24/17 08:16 98.2 66 18 157/81 99 03/23/17 08:00 Room Air Intake and Output 03/23/17 03/23/17 03/24/17 15:00 23:00 07:00 Intake Total 800 ml 240 ml Output Total 600 ml Balance 200 ml 240 ml Results/Medications Medications Current Medications Amlodipine Besylate (Norvasc) 5 mg DAILY PO Last administered on 03/24/17 09: 37; Admin Dose 5 MG; Start 03/17/17 at 09:00 Lisinopril (Zestril) 40 mg DAILY PO Last administered on 03/24/17 09:36; Admin Dose 40 MG; Start 03/17/17 at 09:00 Clonidine (Catapres) 0.2 mg Q8H PRN PO SBP ABOVE 170mmHg; Start 03/16/17 at 23: 45 Magnesium Hydroxide (Milk Of Mag) 30 ml DAILY PRN PO CONSTIPATION Last administered on 03/20/17 17:17; Admin Dose 30 ML; Start 03/16/17 at 23:45 Miscellaneous Information 1 ea NOTE XX ; Start 03/16/17 at 23:45 Glucose (Glutose) 15 gm Q15M PRN PO DECREASED GLUCOSE; Start 03/16/17 at 23:45 Glucose (Glutose) 22.5 gm Q15M PRN PO DECREASED GLUCOSE; Start 03/16/17 at 23: 45 Dextrose (D50w Syringe) 25 ml Q15M PRN IV DECREASED GLUCOSE; Start 03/16/17 at 23:45 Dextrose (D50w Syringe) 50 ml Q15M PRN IV DECREASED GLUCOSE; Start 03/16/17 at 23:45 Glucagon (Glucagen) 1 mg Q15M PRN IM DECREASED GLUCOSE; Start 03/16/17 at 23:45 Glucose (Glutose) 15 gm Q15M PRN BUCCAL DECREASED GLUCOSE; Start 03/16/17 at 23 :45 Acetaminophen (Tylenol Tab) 650 mg Q6H PRN PO PAIN AND OR ELEVATED TEMP; Start 03/16/17 at 23:45 Atorvastatin Calcium (Lipitor) 10 mg DAILY@21 PO Last administered on 20:13; Admin Dose 10 MG; Start 03/17/17 at 21:00 Docusate Sodium (Colace) 100 mg BID PO Last administered on 03/24/17 09:35; Admin Dose 100 MG; Start 03/17/17 at 09:00 Senna (Senokot) 1 tab HS PO Last administered on 03/23/17 20:13; Admin Dose 1 TAB; Start 03/17/17 at 21:00 Magnesium Hydroxide (Milk Of Mag) 30 ml BID PRN PO CONSTIPATION; Start at 00:00 Lactulose (Enulose) 20 gm DAILY PRN PO CONSTIPATION Last administered on 14:48; Admin Dose 20 GM; Start 03/17/17 at 00:00 Bisacodyl (Dulcolax Supp) 10 mg DAILY PRN [place] CONSTIPATION; Start 03/17/17 at 00 :00 Acetaminophen (Tylenol Tab) 650 mg Q4H PRN PO PAIN; Start 03/17/17 at 00:00 Assessment/Plan Additional Assessment/Plan Rehab- Normal-pressure hydrocephalus, encephalopathy. Continue treatment plan, and schedule caregiver training Hypertension. Diabetes mellitus. Hyperlipidemia. ILIANA ADKINS MD Mar 24, 2017 12:19
--- NOTE | 2017-03-24 15:19 | PN ---
Date/Time of Note Date/Time of Note DATE: 03/24/17 TIME: 15:18 Assessment/Plan VTE Prophylaxis VTE Prophylaxis Intervention: SCD's Lines/Catheters IV [facility]from [facility] Urinary Cath still in place: No Assessment/Plan Chief Complaint/Hosp Course 77 yo female with NPH admitted to ARU for further rehabilitation 2/2 debility. 1. Debility secondary to possible normal pressure hydrocephalus. Status post LP -Post Neurology/Neurosurgery eval, no immediate plans for surgery at this time- Needs outpt NS follow-up. --PT/OT eval & treatment 2. Hypertension -On Lisinopril/Amlodipine. 3. DMII-Controlled on diet. A1c 6.5. -Recommend outpatient repeat A1c in 2 months. 4. Hyperlipidemia -On statin 5. Neutropenia,Mild- Stable -Monitor Patient was seen in collaboration with . Problems: Subjective 24 Hr Interval Summary Free Text/Dictation No acute distress. Participates in rehab activities. Exam/Review of Systems Vital Signs Vitals Vital Signs Date Time Temp Pulse Resp B/P Pulse Ox O2 Delivery O2 Flow Rate FiO2 03/24/17 08:16 98.2 66 18 157/81 99 03/23/17 08:00 Room Air Intake and Output 03/23/17 03/23/17 03/24/17 15:00 23:00 07:00 Intake Total 800 ml 240 ml Output Total 600 ml Balance 200 ml 240 ml Exam General:Elderly thin looking female, not in any acute distress . HEENT: Normocephalic, Atraumatic, No laceration or hematoma; Eyes: PEERL, Conjunctiva clear, Anicteric sclera Neck: Supple without any lymphadenopathy, nontender, no JVD, no carotid bruits, trachea midline, no thyromegaly Cardiac: S1, S2 auscultated, regular rhythm and rate, no mumurs or gallop Pulmonary: Normal respiratory effort. Chest clear to auscultation bilaterally, no adventitious breath sounds GI: Abdomen normal to inspection. Soft, non- distended, no masses, no rebound tenderness or guarding. Bowel sounds active on all four quadrants Genitourinary: Deferred Extremities:Weakness LLE+ No cyanosis, clubbing, or edema. Pulses [2+] bilaterally. Full ROM on all four extremities. No focal weakness appreciated. Neurologic: Mild cognitive impairment+. Alert to person, place, time, and situation. Affect appropriate, intact sensation. Skin: Clean,dry, and intact. No ecchymosis, no rashes, or lesions Medications Medications Current Medications Amlodipine Besylate (Norvasc) 5 mg DAILY PO Last administered on 03/24/17 09: 37; Admin Dose 5 MG; Start 03/17/17 at 09:00 Lisinopril (Zestril) 40 mg DAILY PO Last administered on 03/24/17 09:36; Admin Dose 40 MG; Start 03/17/17 at 09:00 Clonidine (Catapres) 0.2 mg Q8H PRN PO SBP ABOVE 170mmHg; Start 03/16/17 at 23: 45 Magnesium Hydroxide (Milk Of Mag) 30 ml DAILY PRN PO CONSTIPATION Last administered on 03/20/17 17:17; Admin Dose 30 ML; Start 03/16/17 at 23:45 Miscellaneous Information 1 ea NOTE XX ; Start 03/16/17 at 23:45 Glucose (Glutose) 15 gm Q15M PRN PO DECREASED GLUCOSE; Start 03/16/17 at 23:45 Glucose (Glutose) 22.5 gm Q15M PRN PO DECREASED GLUCOSE; Start 03/16/17 at 23: 45 Dextrose (D50w Syringe) 25 ml Q15M PRN IV DECREASED GLUCOSE; Start 03/16/17 at 23:45 Dextrose (D50w Syringe) 50 ml Q15M PRN IV DECREASED GLUCOSE; Start 03/16/17 at 23:45 Glucagon (Glucagen) 1 mg Q15M PRN IM DECREASED GLUCOSE; Start 03/16/17 at 23:45 Glucose (Glutose) 15 gm Q15M PRN BUCCAL DECREASED GLUCOSE; Start 03/16/17 at 23 :45 Acetaminophen (Tylenol Tab) 650 mg Q6H PRN PO PAIN AND OR ELEVATED TEMP; Start 03/16/17 at 23:45 Atorvastatin Calcium (Lipitor) 10 mg DAILY@21 PO Last administered on 20:13; Admin Dose 10 MG; Start 03/17/17 at 21:00 Docusate Sodium (Colace) 100 mg BID PO Last administered on 03/24/17 09:35; Admin Dose 100 MG; Start 03/17/17 at 09:00 Senna (Senokot) 1 tab HS PO Last administered on 03/23/17 20:13; Admin Dose 1 TAB; Start 03/17/17 at 21:00 Magnesium Hydroxide (Milk Of Mag) 30 ml BID PRN PO CONSTIPATION; Start at 00:00 Lactulose (Enulose) 20 gm DAILY PRN PO CONSTIPATION Last administered on 14:48; Admin Dose 20 GM; Start 03/17/17 at 00:00 Bisacodyl (Dulcolax Supp) 10 mg DAILY PRN [place] CONSTIPATION; Start 03/17/17 at 00 :00 Acetaminophen (Tylenol Tab) 650 mg Q4H PRN PO PAIN; Start 03/17/17 at 00:00 DARRYL WILDE NP Mar 24, 2017 15:19
--- NOTE | 2017-03-24 19:04 | PN ---
DATE: 03/24/2017 PSYCHOLOGY -- INDIVIDUAL SESSION -- [id number]: This is a followup on a patient who was seen last week. The patient was seen in bed. The patient still is very withdrawn and depressed. The patient does feel lethargic and gets tired very easily. The patient is having difficulty coping but does feel like she is making progress while she is in the program. Worked with the patient to encourage her to continue to work on her physical and emotional health issues. Dictated By: Fabian De La Rosa, PHD /ej/kristine /Document#: [id number]
[2017-03-24 20:00] VITALS: BP 150/74; RESP 18
[2017-03-24] MEDS: SENNA TAB PO SCH (20:28)
[2017-03-24] MEDS: ATORVASTATIN 10 MG TAB PO SCH (20:28)
[2017-03-25 02:00] VITALS: BP 138/70; RESP 18
[2017-03-25 07:30] VITALS: BP 140/69; RESP 18
[2017-03-25] MEDS: AMLODIPINE 5 MG TAB PO SCH (09:09)
[2017-03-25] MEDS: DOCUSATE SODIUM 100 MG CAP PO SCH ×2 (09:09→20:51)
[2017-03-25] MEDS: LISINOPRIL 20 MG TAB PO SCH (09:09)
--- NOTE | 2017-03-25 11:45 | CONS ---
Date/Time of Note Date/Time of Note DATE: 03/25/17 TIME: 11:40 Consult Date/Type/Reason Admit Date/Time Mar 16, 2017 at 23:18 Type of Consultation: Neurology Subjective Comfortable Objective pulm-cta abd-soft cga ambulation Vital Signs Date Time Temp Pulse Resp B/P Pulse Ox O2 Delivery O2 Flow Rate FiO2 03/25/17 07:30 97.8 63 18 140/69 96 03/23/17 08:00 Room Air Intake and Output 03/24/17 03/24/17 03/25/17 15:00 23:00 07:00 Intake Total 360 ml 350 ml Balance 360 ml 350 ml Results/Medications Medications Current Medications Amlodipine Besylate (Norvasc) 5 mg DAILY PO Last administered on 03/25/17 09: 09; Admin Dose 5 MG; Start 03/17/17 at 09:00 Lisinopril (Zestril) 40 mg DAILY PO Last administered on 03/25/17 09:09; Admin Dose 40 MG; Start 03/17/17 at 09:00 Clonidine (Catapres) 0.2 mg Q8H PRN PO SBP ABOVE 170mmHg; Start 03/16/17 at 23: 45 Magnesium Hydroxide (Milk Of Mag) 30 ml DAILY PRN PO CONSTIPATION Last administered on 03/20/17 17:17; Admin Dose 30 ML; Start 03/16/17 at 23:45 Miscellaneous Information 1 ea NOTE XX ; Start 03/16/17 at 23:45 Glucose (Glutose) 15 gm Q15M PRN PO DECREASED GLUCOSE; Start 03/16/17 at 23:45 Glucose (Glutose) 22.5 gm Q15M PRN PO DECREASED GLUCOSE; Start 03/16/17 at 23: 45 Dextrose (D50w Syringe) 25 ml Q15M PRN IV DECREASED GLUCOSE; Start 03/16/17 at 23:45 Dextrose (D50w Syringe) 50 ml Q15M PRN IV DECREASED GLUCOSE; Start 03/16/17 at 23:45 Glucagon (Glucagen) 1 mg Q15M PRN IM DECREASED GLUCOSE; Start 03/16/17 at 23:45 Glucose (Glutose) 15 gm Q15M PRN BUCCAL DECREASED GLUCOSE; Start 03/16/17 at 23 :45 Acetaminophen (Tylenol Tab) 650 mg Q6H PRN PO PAIN AND OR ELEVATED TEMP; Start 03/16/17 at 23:45 Atorvastatin Calcium (Lipitor) 10 mg DAILY@21 PO Last administered on 20:28; Admin Dose 10 MG; Start 03/17/17 at 21:00 Docusate Sodium (Colace) 100 mg BID PO Last administered on 03/25/17 09:09; Admin Dose 100 MG; Start 03/17/17 at 09:00 Senna (Senokot) 1 tab HS PO Last administered on 03/24/17 20:28; Admin Dose 1 TAB; Start 03/17/17 at 21:00 Magnesium Hydroxide (Milk Of Mag) 30 ml BID PRN PO CONSTIPATION; Start at 00:00 Lactulose (Enulose) 20 gm DAILY PRN PO CONSTIPATION Last administered on 14:48; Admin Dose 20 GM; Start 03/17/17 at 00:00 Bisacodyl (Dulcolax Supp) 10 mg DAILY PRN [place] CONSTIPATION; Start 03/17/17 at 00 :00 Acetaminophen (Tylenol Tab) 650 mg Q4H PRN PO PAIN; Start 03/17/17 at 00:00 Assessment/Plan Additional Assessment/Plan Rehab- Normal-pressure hydrocephalus, encephalopathy. Continue rehab activities Hypertension. Diabetes mellitus. Hyperlipidemia. ILIANA ADKINS MD Mar 25, 2017 11:45
--- NOTE | 2017-03-25 13:23 | CONS ---
Date/Time of Note Date/Time of Note DATE: 03/25/17 TIME: 13:22 Assessment/Plan Assessment/Plan Chief Complaint/Hosp Course 77 yo female with NPH admitted to ARU for further rehabilitation 2/2 debility. 1. Debility secondary to possible normal pressure hydrocephalus. Status post LP -Post Neurology/Neurosurgery eval, no immediate plans for surgery at this time- Needs outpt NS follow-up. --PT/OT eval & treatment 2. Hypertension -On Lisinopril/Amlodipine. 3. DMII-Controlled on diet. A1c 6.5. -Recommend outpatient repeat A1c in 2 months. 4. Hyperlipidemia -On statin 5. Neutropenia,Mild- Stable -Monitor Patient was seen in collaboration with . Problems: Consultation Date/Type/Reason Admit Date/Time Mar 16, 2017 at 23:18 Type of Consultation: Neurology 24 HR Interval Summary Free Text/Dictation no acute changes.Participates with PT Exam/Review of Systems Vital Signs Vitals Vital Signs Date Time Temp Pulse Resp B/P Pulse Ox O2 Delivery O2 Flow Rate FiO2 03/25/17 07:30 97.8 63 18 140/69 96 03/23/17 08:00 Room Air Intake and Output 03/24/17 03/24/17 03/25/17 15:00 23:00 07:00 Intake Total 360 ml 350 ml Balance 360 ml 350 ml Exam General:Elderly thin looking female, not in any acute distress . HEENT: Normocephalic, Atraumatic, No laceration or hematoma; Eyes: PEERL, Conjunctiva clear, Anicteric sclera Neck: Supple without any lymphadenopathy, nontender, no JVD, no carotid bruits, trachea midline, no thyromegaly Cardiac: S1, S2 auscultated, regular rhythm and rate, no mumurs or gallop Pulmonary: Normal respiratory effort. Chest clear to auscultation bilaterally, no adventitious breath sounds GI: Abdomen normal to inspection. Soft, non- distended, no masses, no rebound tenderness or guarding. Bowel sounds active on all four quadrants Genitourinary: Deferred Extremities:Weakness LLE+ No cyanosis, clubbing, or edema. Pulses [2+] bilaterally. Full ROM on all four extremities. No focal weakness appreciated. Neurologic: Mild cognitive impairment+. Alert to person, place, time, and situation. Affect appropriate, intact sensation. Skin: Clean,dry, and intact. No ecchymosis, no rashes, or lesions Medications Medications Current Medications Amlodipine Besylate (Norvasc) 5 mg DAILY PO Last administered on 03/25/17 09: 09; Admin Dose 5 MG; Start 03/17/17 at 09:00 Lisinopril (Zestril) 40 mg DAILY PO Last administered on 03/25/17 09:09; Admin Dose 40 MG; Start 03/17/17 at 09:00 Clonidine (Catapres) 0.2 mg Q8H PRN PO SBP ABOVE 170mmHg; Start 03/16/17 at 23: 45 Magnesium Hydroxide (Milk Of Mag) 30 ml DAILY PRN PO CONSTIPATION Last administered on 03/20/17 17:17; Admin Dose 30 ML; Start 03/16/17 at 23:45 Miscellaneous Information 1 ea NOTE XX ; Start 03/16/17 at 23:45 Glucose (Glutose) 15 gm Q15M PRN PO DECREASED GLUCOSE; Start 03/16/17 at 23:45 Glucose (Glutose) 22.5 gm Q15M PRN PO DECREASED GLUCOSE; Start 03/16/17 at 23: 45 Dextrose (D50w Syringe) 25 ml Q15M PRN IV DECREASED GLUCOSE; Start 03/16/17 at 23:45 Dextrose (D50w Syringe) 50 ml Q15M PRN IV DECREASED GLUCOSE; Start 03/16/17 at 23:45 Glucagon (Glucagen) 1 mg Q15M PRN IM DECREASED GLUCOSE; Start 03/16/17 at 23:45 Glucose (Glutose) 15 gm Q15M PRN BUCCAL DECREASED GLUCOSE; Start 03/16/17 at 23 :45 Acetaminophen (Tylenol Tab) 650 mg Q6H PRN PO PAIN AND OR ELEVATED TEMP; Start 03/16/17 at 23:45 Atorvastatin Calcium (Lipitor) 10 mg DAILY@21 PO Last administered on 20:28; Admin Dose 10 MG; Start 03/17/17 at 21:00 Docusate Sodium (Colace) 100 mg BID PO Last administered on 03/25/17 09:09; Admin Dose 100 MG; Start 03/17/17 at 09:00 Senna (Senokot) 1 tab HS PO Last administered on 03/24/17 20:28; Admin Dose 1 TAB; Start 03/17/17 at 21:00 Magnesium Hydroxide (Milk Of Mag) 30 ml BID PRN PO CONSTIPATION; Start at 00:00 Lactulose (Enulose) 20 gm DAILY PRN PO CONSTIPATION Last administered on 14:48; Admin Dose 20 GM; Start 03/17/17 at 00:00 Bisacodyl (Dulcolax Supp) 10 mg DAILY PRN [place] CONSTIPATION; Start 03/17/17 at 00 :00 Acetaminophen (Tylenol Tab) 650 mg Q4H PRN PO PAIN; Start 03/17/17 at 00:00 DARRYL WILDE NP Mar 25, 2017 13:23
[2017-03-25 14:00] VITALS: BP 158/71; RESP 18
[2017-03-25 20:00] VITALS: BP 139/66; RESP 18
[2017-03-25] MEDS: SENNA TAB PO SCH (20:51)
[2017-03-25] MEDS: ATORVASTATIN 10 MG TAB PO SCH (20:51)
[2017-03-26 02:00] VITALS: BP 128/67; RESP 18
[2017-03-26] MEDS: LACTULOSE 30ML CUP PO PRN (06:26)
[2017-03-26 07:54] VITALS: BP 129/65; RESP 18
[2017-03-26] MEDS: DOCUSATE SODIUM 100 MG CAP PO SCH ×2 (09:03→20:41)
[2017-03-26] MEDS: MAGNESIUM HYDROXIDE 30ML CUP PO PRN (09:04)
[2017-03-26] MEDS: LISINOPRIL 20 MG TAB PO SCH (09:04)
[2017-03-26] MEDS: AMLODIPINE 5 MG TAB PO SCH (09:04)
--- NOTE | 2017-03-26 13:42 | CONS ---
Date/Time of Note Date/Time of Note DATE: 03/26/17 TIME: 13:41 Consult Date/Type/Reason Admit Date/Time Mar 16, 2017 at 23:18 Type of Consultation: Neurology Subjective Comfortable Objective cga ambulation Vital Signs Date Time Temp Pulse Resp B/P Pulse Ox O2 Delivery O2 Flow Rate FiO2 03/26/17 07:54 97.9 66 18 129/65 96 03/23/17 08:00 Room Air Intake and Output 03/25/17 03/25/17 03/26/17 15:00 23:00 07:00 Intake Total 1100 ml Balance 1100 ml Results/Medications Medications Current Medications Amlodipine Besylate (Norvasc) 5 mg DAILY PO Last administered on 03/26/17 09: 04; Admin Dose 5 MG; Start 03/17/17 at 09:00 Lisinopril (Zestril) 40 mg DAILY PO Last administered on 03/26/17 09:04; Admin Dose 40 MG; Start 03/17/17 at 09:00 Clonidine (Catapres) 0.2 mg Q8H PRN PO SBP ABOVE 170mmHg; Start 03/16/17 at 23: 45 Magnesium Hydroxide (Milk Of Mag) 30 ml DAILY PRN PO CONSTIPATION Last administered on 03/26/17 09:04; Admin Dose 30 ML; Start 03/16/17 at 23:45 Miscellaneous Information 1 ea NOTE XX ; Start 03/16/17 at 23:45 Glucose (Glutose) 15 gm Q15M PRN PO DECREASED GLUCOSE; Start 03/16/17 at 23:45 Glucose (Glutose) 22.5 gm Q15M PRN PO DECREASED GLUCOSE; Start 03/16/17 at 23: 45 Dextrose (D50w Syringe) 25 ml Q15M PRN IV DECREASED GLUCOSE; Start 03/16/17 at 23:45 Dextrose (D50w Syringe) 50 ml Q15M PRN IV DECREASED GLUCOSE; Start 03/16/17 at 23:45 Glucagon (Glucagen) 1 mg Q15M PRN IM DECREASED GLUCOSE; Start 03/16/17 at 23:45 Glucose (Glutose) 15 gm Q15M PRN BUCCAL DECREASED GLUCOSE; Start 03/16/17 at 23 :45 Acetaminophen (Tylenol Tab) 650 mg Q6H PRN PO PAIN AND OR ELEVATED TEMP; Start 03/16/17 at 23:45 Atorvastatin Calcium (Lipitor) 10 mg DAILY@21 PO Last administered on 20:51; Admin Dose 10 MG; Start 03/17/17 at 21:00 Docusate Sodium (Colace) 100 mg BID PO Last administered on 03/26/17 09:03; Admin Dose 100 MG; Start 03/17/17 at 09:00 Senna (Senokot) 1 tab HS PO Last administered on 03/25/17 20:51; Admin Dose 1 TAB; Start 03/17/17 at 21:00 Magnesium Hydroxide (Milk Of Mag) 30 ml BID PRN PO CONSTIPATION; Start at 00:00 Lactulose (Enulose) 20 gm DAILY PRN PO CONSTIPATION Last administered on 06:26; Admin Dose 20 GM; Start 03/17/17 at 00:00 Bisacodyl (Dulcolax Supp) 10 mg DAILY PRN [place] CONSTIPATION; Start 03/17/17 at 00 :00 Acetaminophen (Tylenol Tab) 650 mg Q4H PRN PO PAIN; Start 03/17/17 at 00:00 Assessment/Plan Additional Assessment/Plan Rehab- Normal-pressure hydrocephalus, encephalopathy. Continue rehab program Hypertension. Diabetes mellitus. Hyperlipidemia. ILIANA ADKINS MD Mar 26, 2017 13:42
--- NOTE | 2017-03-26 14:10 | CONS ---
Date/Time of Note Date/Time of Note DATE: 03/26/17 TIME: 14:09 Assessment/Plan Assessment/Plan Chief Complaint/Hosp Course 77 yo female with NPH admitted to ARU for further rehabilitation 2/2 debility. 1. Debility secondary to possible normal pressure hydrocephalus. Status post LP -Post Neurology/Neurosurgery eval, no immediate plans for surgery at this time- Needs outpt NS follow-up. --PT/OT eval & treatment 2. Hypertension -On Lisinopril/Amlodipine. 3. DMII-Controlled on diet. A1c 6.5. -Recommend outpatient repeat A1c in 2 months. 4. Hyperlipidemia -On statin 5. Neutropenia,Mild- Stable -Monitor Patient was seen in collaboration with . Problems: Consultation Date/Type/Reason Admit Date/Time Mar 16, 2017 at 23:18 Type of Consultation: Neurology 24 HR Interval Summary Free Text/Dictation No acute distress. Doing well. Exam/Review of Systems Vital Signs Vitals Vital Signs Date Time Temp Pulse Resp B/P Pulse Ox O2 Delivery O2 Flow Rate FiO2 03/26/17 07:54 97.9 66 18 129/65 96 03/23/17 08:00 Room Air Intake and Output 03/25/17 03/25/17 03/26/17 15:00 23:00 07:00 Intake Total 1100 ml Balance 1100 ml Exam General:Elderly thin looking female, not in any acute distress . HEENT: Normocephalic, Atraumatic, No laceration or hematoma; Eyes: PEERL, Conjunctiva clear, Anicteric sclera Neck: Supple without any lymphadenopathy, nontender, no JVD, no carotid bruits, trachea midline, no thyromegaly Cardiac: S1, S2 auscultated, regular rhythm and rate, no mumurs or gallop Pulmonary: Normal respiratory effort. Chest clear to auscultation bilaterally, no adventitious breath sounds GI: Abdomen normal to inspection. Soft, non- distended, no masses, no rebound tenderness or guarding. Bowel sounds active on all four quadrants Genitourinary: Deferred Extremities:Weakness LLE+ No cyanosis, clubbing, or edema. Pulses [2+] bilaterally. Full ROM on all four extremities. No focal weakness appreciated. Neurologic: Mild cognitive impairment+. Alert to person, place, time, and situation. Affect appropriate, intact sensation. Skin: Clean,dry, and intact. No ecchymosis, no rashes, or lesions Medications Medications Current Medications Amlodipine Besylate (Norvasc) 5 mg DAILY PO Last administered on 03/26/17 09: 04; Admin Dose 5 MG; Start 03/17/17 at 09:00 Lisinopril (Zestril) 40 mg DAILY PO Last administered on 03/26/17 09:04; Admin Dose 40 MG; Start 03/17/17 at 09:00 Clonidine (Catapres) 0.2 mg Q8H PRN PO SBP ABOVE 170mmHg; Start 03/16/17 at 23: 45 Magnesium Hydroxide (Milk Of Mag) 30 ml DAILY PRN PO CONSTIPATION Last administered on 03/26/17 09:04; Admin Dose 30 ML; Start 03/16/17 at 23:45 Miscellaneous Information 1 ea NOTE XX ; Start 03/16/17 at 23:45 Glucose (Glutose) 15 gm Q15M PRN PO DECREASED GLUCOSE; Start 03/16/17 at 23:45 Glucose (Glutose) 22.5 gm Q15M PRN PO DECREASED GLUCOSE; Start 03/16/17 at 23: 45 Dextrose (D50w Syringe) 25 ml Q15M PRN IV DECREASED GLUCOSE; Start 03/16/17 at 23:45 Dextrose (D50w Syringe) 50 ml Q15M PRN IV DECREASED GLUCOSE; Start 03/16/17 at 23:45 Glucagon (Glucagen) 1 mg Q15M PRN IM DECREASED GLUCOSE; Start 03/16/17 at 23:45 Glucose (Glutose) 15 gm Q15M PRN BUCCAL DECREASED GLUCOSE; Start 03/16/17 at 23 :45 Acetaminophen (Tylenol Tab) 650 mg Q6H PRN PO PAIN AND OR ELEVATED TEMP; Start 03/16/17 at 23:45 Atorvastatin Calcium (Lipitor) 10 mg DAILY@21 PO Last administered on 20:51; Admin Dose 10 MG; Start 03/17/17 at 21:00 Docusate Sodium (Colace) 100 mg BID PO Last administered on 03/26/17 09:03; Admin Dose 100 MG; Start 03/17/17 at 09:00 Senna (Senokot) 1 tab HS PO Last administered on 03/25/17 20:51; Admin Dose 1 TAB; Start 03/17/17 at 21:00 Magnesium Hydroxide (Milk Of Mag) 30 ml BID PRN PO CONSTIPATION; Start at 00:00 Lactulose (Enulose) 20 gm DAILY PRN PO CONSTIPATION Last administered on 06:26; Admin Dose 20 GM; Start 03/17/17 at 00:00 Bisacodyl (Dulcolax Supp) 10 mg DAILY PRN MD CONSTIPATION; Start 03/17/17 at 00 :00 Acetaminophen (Tylenol Tab) 650 mg Q4H PRN PO PAIN; Start 03/17/17 at 00:00 DARRYL WILDE NP Mar 26, 2017 14:10
[2017-03-26 20:00] VITALS: BP 114/69; RESP 18
[2017-03-26] MEDS: ATORVASTATIN 10 MG TAB PO SCH (20:40)
[2017-03-26] MEDS: SENNA TAB PO SCH (20:41)
[2017-03-27 02:00] VITALS: BP 120/73; RESP 18
[2017-03-27 07:30] VITALS: BP 154/69; RESP 20
[2017-03-27] MEDS: DOCUSATE SODIUM 100 MG CAP PO SCH (09:44)
[2017-03-27] MEDS: LISINOPRIL 20 MG TAB PO SCH (09:45)
[2017-03-27] MEDS: AMLODIPINE 5 MG TAB PO SCH (09:45)
--- NOTE | 2017-03-27 09:50 | DS ---
Date/Time of Note Date/Time of Note DATE: 03/27/17 TIME: 09:49 Discharge Summary Admission/Discharge Info Admit Date/Time Mar 16, 2017 at 23:18 Discharge Date/Time Discharge Diagnosis 1. Normal-pressure hydrocephalus, encephalopathy. 2. Diabetes mellitus. 3. Hyperlipidemia. 4. Hypertension 5. Improvements in self-care, mobility and cognition. Patient Condition: Good Hospital Course DISCHARGE Patient was admitted for comprehensive interdisciplinary acute rehabilitation. Patient made steady functional gains and improved from a mod level to a SBA level for self care and mobility, including ambulating over 150 feet with the use of a front wheeled walker. She did require cues for safety Patient is being discharged home with recommendations for home health PT, OT and speech follow up. DME recommendations: FWW; BSC; Shower Chair Patient will follow up with PMD upon DC. Home Meds Reported Medications Olmesartan Medoxomil (Benicar) 40 Mg Tablet, 40 MG PO DAILY, #30 TAB 03/07/17 Metformin Hcl* (Metformin Hcl*) 500 Mg Tablet, 500 MG PO DAILY, #30 TAB 03/07/17 Primary Care Provider ILIANA Emery MD Mar 27, 2017 09:50 ILIANA ADKINS MD Mar 27, 2017 09:50
== END 2017-03-27 12:30 | disposition home health service (06) | DRG 56 ==
LOC: VRC 23:18
PROVIDERS: ADMIT Physical Medicine & Rehabilitation; ATTEND Internal Medicine Pulmonary Disease
DX: G31.84 Mild cognitive impairment of uncertain or unknown etiology (principal); G93.40 Encephalopathy, unspecified; D70.9 Neutropenia, unspecified; G91.2 (Idiopathic) normal pressure hydrocephalus; E11.9 Type 2 diabetes mellitus without complications; Z74.09 Other reduced mobility; I10 Essential (primary) hypertension; E78.5 Hyperlipidemia, unspecified; R32 Unspecified urinary incontinence; F06.31 Mood disorder due to known physiological condition with depressive features; Z79.84 Long term (current) use of oral hypoglycemic drugs
CPT/HCPCS: 80053; 81003; 82962; 85025; 87081; 87086; 92507; 92523; 92610; 97110; 97112; 97116; 97150; 97163; 97530; 97535; A4310

== ENCOUNTER 2018-09-26 21:51 | Inpatient (IN) | payer MEDICARE, OTHER ==
[~2018-09-26] VITALS: Ht 167.6 cm; Wt 55.8 kg
[~2018-09-26 21:51] MED LIST changes: +METF500T24 PO; -METF500T4 PO; +OLME40TA13 PO; -OLME40TA14 PO
[2018-09-27] VITALS (8 sets, daily range): BP systolic 152–180; BP diastolic 66–81; PULSE 58–98; RESP 17–18; Ht 167.6 cm; Wt 55.8 kg
[2018-09-27] MEDS ORDERED: SOD CHLORIDE 0.9% 500 ML IV STA (00:23)
[2018-09-27] MEDS ORDERED: CEFEPIME 2GM/50 ML (PMX) 50 ML IVPB STA (01:44)
[2018-09-27] MEDS ORDERED: SODIUM CHLORIDE 0.9% 1L BAG IV* STA (01:44)
[2018-09-27] MEDS ORDERED: VANCOMYCIN 1 GM (PMX) 250 ML IVPB ONE (02:00)
--- NOTE | 2018-09-27 04:05 | ERD ---
ER Documentation Chief Complaint Chief Complaint pt has a shunt, not acting like herself HPI This is a 78-year female who is not been acting normal per the daughter who takes care of her other daily basis. According to the doing over the course of the last 3-4 weeks she has progressively talked less and less to the point where now she does not talk at all. There was no single event but just a progressive decline. Patient has a history of shunt placed in the past. Patient was placed for normal pressure hydrocephalus treatment. No fevers or chills. Diagnosed with UTI a few weeks ago. Denies any other current issues. ROS All systems reviewed and are negative except as per history of present illness. Medications Home Meds Reported Medications Olmesartan Medoxomil (Benicar) 40 Mg Tablet, 40 MG PO DAILY, #30 TAB 03/07/17 Metformin Hcl* (Metformin Hcl*) 500 Mg Tablet, 500 MG PO DAILY, #30 TAB 03/07/17 Allergies Allergies: Coded Allergies: No Known Allergy (Unverified , 03/07/17) PMhx/Soc History of Surgery: No Anesthesia Reaction: No Hx 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 Disorder: Yes (Dementia) Hx Respiratory Disorders: Yes (sleep apnea - on cpap started on November) Hx Cardiac Disorders: Yes (HTN) Hx Psychiatric Problems: No Hx Miscellaneous Medical Probl: Yes (DM, HTN) Hx Alcohol Use: No Hx Substance Use: No Hx Tobacco Use: No Smoking Status: Never smoker Physical Exam Vitals Vital Signs Date Temp Pulse Resp B/P (MAP) Pulse Ox O2 O2 Flow FiO2 Time Delivery Rate 09/27/18 69 14 163/71 96 Room Air 01:26 (101) 09/26/18 98.2 86 16 176/80 98 22:25 (112) Physical Exam Const: No acute distress Head: Atraumatic Eyes: Normal Conjunctiva ENT: Normal External Ears, Nose and Mouth. Neck: Full range of motion. No meningismus. Resp: Clear to auscultation bilaterally Cardio: Regular rate and rhythm, no murmurs Abd: Soft, non tender, non distended. Normal bowel sounds Skin: No petechiae or rashes Back: No midline or flank tenderness Ext: No cyanosis, or edema Neur: Awake and alert Psych: Normal Mood and Affect Result Diagram: 09/27/185 09/27/18 0055 Results 24 hrs Laboratory Tests Test 09/27/18 00:55 09/27/18 01:39 09/27/18 02:20 09/27/18 02:25 White Blood Count 6.2 10^3/ul Red Blood Count 5.57 10^6/ul Hemoglobin 15.3 g/dl Hematocrit 47.6 % Mean Corpuscular 85.5 fl Volume Mean Corpuscular 27.5 pg Hemoglobin Mean Corpuscular 32.1 g/dl Hemoglobin Concent Red Cell 13.7 % Distribution Width Platelet Count 140 10^3/UL Mean Platelet 11.3 fl Volume Immature 1.500 % Granulocytes % Neutrophils % 87.7 % Lymphocytes % 5.8 % Monocytes % 4.5 % Eosinophils % 0.2 % Basophils % 0.3 % Nucleated Red Blood 0.0 /100WBC Cells % Immature 0.090 10^3/ul Granulocytes # Neutrophils # 5.4 10^3/ul Lymphocytes # 0.4 10^3/ul Monocytes # 0.3 10^3/ul Eosinophils # 0.0 10^3/ul Basophils # 0.0 10^3/ul Nucleated Red Blood 0.0 10^3/ul Cells # Prothrombin Time 11.7 Sec Prothrombin Time 0.9 Ratio INR International 0.85 Normalized Ratio Activated 22.2 Sec Partial Thromboplas t Time Sodium Level 145 mmol/L Potassium Level 3.1 mmol/L Chloride Level 92 mmol/L Carbon Dioxide 45 mmol/L Level Anion Gap 8 Blood Urea Nitrogen 25 mg/dl Creatinine 0.60 mg/dl Est Glomerular mL/min Filtrat Rate mL/min Glucose Level 352 mg/dl Lactic Acid Level 2.2 mmol/L Calcium Level 10.9 mg/dl Total Bilirubin 0.5 mg/dl Direct Bilirubin 0.00 mg/dl Indirect Bilirubin 0.5 mg/dl Aspartate Amino 16 IU/L Transf (AST/SGOT) Alanine 37 IU/L Aminotransferase (A LT/SGPT) Alkaline 102 IU/L Phosphatase Troponin I 0.026 ng/ml Total Protein 7.0 g/dl Albumin 4.0 g/dl Globulin 3.00 g/dl Albumin/Globulin 1.33 Ratio Salicylates Level < 1.0 mg/dl Acetaminophen Level < 10.0 ug/ml Ethyl Alcohol Level < 10.0 mg/dl Bedside Glucose 320 mg/dL Urine Color YELLOW Urine Clarity CLOUDY Urine pH 9.0 Urine Specific 1.021 [place] Urine Ketones NEGATIVE mg/dL Urine Nitrite NEGATIVE mg/dL Urine Bilirubin NEGATIVE mg/dL Urine Urobilinogen NEGATIVE mg/dL Urine Leukocyte NEGATIVE Rubina/ul Esterase Urine Microscopic 1 /HPF RBC Urine Microscopic 4 /HPF WBC Urine Bacteria FEW /HPF Urine Hemoglobin NEGATIVE mg/dL Urine Glucose 3+ mg/dL Urine Total Protein 2+ mg/dl Urine Opiates Negative Screen Urine Barbiturates Negative Urine Amphetamines Negative Screen Urine Negative Benzodiazepines Screen Urine Cocaine Negative Screen Urine Cannabinoids Positive Bedside Urine pH >=9.0 (LAB) Bedside Urine 2+ Protein (LAB) Bedside Urine 0.50% Glucose (UA) Bedside Urine Negative Ketones (LAB) Bedside Urine Blood Trace-lysed Bedside Urine Negative Nitrite (LAB) Bedside Urine Negative Leukocyte Esterase (L Current Medications Medications Dose Sig/Anisa Start Time Status Last (Trade) Ordered Route PRN Stop Time Admin Dose Reason Admin Sodium 500 ml @ Q1H STAT 09/27/18 DC 09/27/18 Chloride 500 mls/hr IV 00:23 09/27/18 00:15 01:22 Sodium 1,800 ml BOLUS OVER 2 09/27/18 DC 09/27/18 Chloride HOURS STAT 01:44 09/27/18 02:27 (NS) IV* 01:45 Cefepime HCl 50 ml @ ONCE STAT 09/27/18 DC 09/27/18 100 mls/hr IVPB 01:44 09/27/18 02:26 02:13 Vancomycin 250 ml @ ONCE ONCE 09/27/18 HCl 125 mls/hr IVPB 02:00 09/27/18 03:59 Procedures/MDM Patient's infectious symptoms have not stabilized and the patient is at risk of rapid decompensation. The patient will be admitted for careful hydration, antibiotic therapy, and infectious source control. Severe Sepsis Assessment: Infectious Source: Unknown End organ damage indicated by: [Lactate > 2.0 mmol/L Severe Sepsis Managment: Blood Cultures X 2 before broad spectrum antibiotics initiated at 1:40 AM once sepsis was first recognized 30 ml/kg NS bolus Completed Initial Lactate: 2.2 Repeat Lactate pending Critical Care: Time: 45 minutes Treatments/Evaluations: Emergent fluid management, while maintaining close respiratory support. Immediate broad spectrum antibiotic therapy. Simultaneous assessment for possible sources in order to direct therapy. Consideration for invasive and chemical support to prevent respiratory or cardiac collapse. Septic Shock Assessment (1 hour post 30 ml/kg fluid bolus): Hypotension (SBP < 90 or 40 mmHg drop, MAP < 65): [No] Lactic acid > 4.0 [No] Perfusion Reassessment for Septic Shock: Temp 90.6, pulse 88, respiratory rate 14, blood pressure 117/76 Heart Exam: [Tachycardic] Lung Exam: [No Crackles] Capillary Refill: [Delayed] Peripheral Pulses: [Radially present] Skin: [Mottled, pale] Accepting Care Team: Current data and ongoing care discussed. Time: 345 Primary Provider: Dr. Hawkins Consulting: [[employer]] Outstanding Data: none EKG: Rate/Rhythm: [Normal Sinus Rhythm], regular rate QRS, ST, T-waves: [No changes consistent w/ acute ischemia], normal int ervals, normal axis Impression: [No evidence of ischemia or arrhythmia] Chest X-ray 1V Interpreted by me: Soft Tissue: No acute abnormalities Bones: No acute abnormalities Mediastinum/Cardiac Silhouette/Lungs: [No acute abnormalities] Departure Diagnosis: Primary Impression: Altered level of consciousness Condition: Serious MARIA ISABEL CASTANEDA Sep 27, 2018 04:02
[2018-09-27] MEDS ORDERED: DEXTROSE 50% 50 ML SYRINGE IV PRN ×2 (04:30)
[2018-09-27] MEDS ORDERED: GLUCAGON 1 MG INJ IM PRN (04:30)
[2018-09-27] MEDS ORDERED: GLUCOSE GEL 15 GRAM TUBE PO PRN ×2 (04:30)
[2018-09-27] MEDS ORDERED: GLUCOSE GEL 15 GRAM TUBE BUCCAL PRN (04:30)
[2018-09-27] MEDS ORDERED: CYAN100T PO (04:44)
[2018-09-27] MEDS ORDERED: LISI40TA3 PO (04:44)
[2018-09-27] MEDS ORDERED: ACET-141 PO (04:44)
[2018-09-27] MEDS ORDERED: AMLO-147 PO (04:44)
[2018-09-27] MEDS ORDERED: MULTI PO (04:44)
[2018-09-27] MEDS ORDERED: CHOL500L3 PO (04:44)
[2018-09-27] MEDS ORDERED: FOL8 PO (04:44)
[2018-09-27] MEDS ORDERED: NACL 0.9% 3 ML SYG IV SCH (06:30)
[2018-09-27] MEDS ORDERED: ACETAMINOPHEN 325 MG TAB PO PRN (06:30)
--- NOTE | 2018-09-27 08:10 | HP ---
Date/Time of Note Date/Time of Note DATE: 09/27/18 TIME: 07:58 Assessment/Plan VTE Prophylaxis SCD applied (from Nsg): Yes Pharmacological prophylaxis: NA/contraindicated Pharm contraindication: low risk/ambulating Lines/Catheters IV Catheter Type (from Nrsg): Saline Lock Urinary Cath still in place: No Assessment/Plan Hospital Course This is a 78-year-old female being admitted to the telemetry floor for: #1 acute encephalopathy: Toxic metabolic versus neurologic versus other. At the current time there does not appear to be any overt signs of infection. Patient also was noted to have a positive marijuana urine drug screen chest x-ray does not show any signs of pneumonia UA does not appear to show any signs of infections as well. Patient is afebrile. Nonetheless we will obtain blood cultures and urine cultures. Will obtain an MRI of the brain to further evaluate. Will consult neurology . PT OT evaluation. CT scan of the brain does not show any acute abnormalities. #2 dehydration with contraction alkalosis: Patient does appear to be volume down she did receive fluids in the ER. We will repeat CBC CMP in the a.m. And adjust fluids accordingly. # 3lactic acidosis: 2.2 possibly secondary to dehydration. Afebrile. Will trend. cultures ordered. #4 normal pressure hydrocephalus: Patient is status post SOAKER HIDES shunt. Will obtain an MRI of the brain to further evaluate. Consult neurology. #5 history of CVA: Patient at baseline uses a walker and converses and eats normally. #6 diabetes mellitus: Patient's blood sugars are noted to be elevated in the 300s. Will check hemoglobin A1c. We will need to optimize patient's blood sugars. #7 hypertension: Patient blood pressure also noted to be elevated, will need to optimize blood pressure regimen #8 Dementia: will need assess baseline with daughter #9 dvt and gi proph: scds, no gi prophylaxis indicated further treatment strategy will be implemented as per the clinical course. Result Diagram: 09/27/18 0055 09/27/18 0055 Results 24hrs Laboratory Tests Test 09/27/18 00:55 09/27/18 01:39 09/27/18 02:20 09/27/18 02:25 White Blood Count 6.2 # Red Blood Count 5.57 H Hemoglobin 15.3 Hematocrit 47.6 H Mean Corpuscular 85.5 Volume Mean Corpuscular 27.5 L Hemoglobin Mean Corpuscular 32.1 Hemoglobin Concent Red Cell Distribution 13.7 Width Platelet Count 140 Mean Platelet Volume 11.3 H Immature Granulocytes 1.500 H % Neutrophils % 87.7 H Lymphocytes % 5.8 L Monocytes % 4.5 Eosinophils % 0.2 Basophils % 0.3 Nucleated Red Blood 0.0 Cells % Immature Granulocytes 0.090 H # Neutrophils # 5.4 Lymphocytes # 0.4 L Monocytes # 0.3 Eosinophils # 0.0 Basophils # 0.0 Nucleated Red Blood 0.0 Cells # Prothrombin Time 11.7 L Prothrombin Time Ratio 0.9 INR International 0.85 Normalized Ratio Activated 22.2 L Partial Thromboplast Time Sodium Level 145 H Potassium Level 3.1 L Chloride Level 92 L Carbon Dioxide Level 45 *H Anion Gap 8 Blood Urea Nitrogen 25 H Creatinine 0.60 Est Glomerular Filtrat Rate mL/min Glucose Level 352 H Lactic Acid Level 2.2 *H Calcium Level 10.9 H Total Bilirubin 0.5 Direct Bilirubin 0.00 Indirect Bilirubin 0.5 Aspartate Amino 16 Transf (AST/SGOT) Alanine 37 Aminotransferase (ALT/ SGPT) Alkaline Phosphatase 102 Troponin I 0.026 Total Protein 7.0 Albumin 4.0 Globulin 3.00 Albumin/Globulin Ratio 1.33 Salicylates Level < 1.0 L Acetaminophen Level < 10.0 L Ethyl Alcohol Level < 10.0 H Bedside Glucose 320 H Urine Color YELLOW Urine Clarity CLOUDY A Urine pH 9.0 Urine Specific [place] 1.021 Urine Ketones NEGATIVE Urine Nitrite NEGATIVE Urine Bilirubin NEGATIVE Urine Urobilinogen NEGATIVE Urine Leukocyte NEGATIVE Esterase Urine Microscopic RBC 1 Urine Microscopic WBC 4 Urine Bacteria FEW A Urine Hemoglobin NEGATIVE Urine Glucose 3+ H Urine Total Protein 2+ H Urine Opiates Screen Negative Urine Barbiturates Negative Urine Amphetamines Negative Screen Urine Benzodiazepines Negative Screen Urine Cocaine Screen Negative Urine Cannabinoids Positive Bedside Urine pH (LAB) >=9.0 Bedside Urine Protein 2+ H (LAB) Bedside Urine Glucose 0.50% H (UA) Bedside Urine Ketones Negative (LAB) Bedside Urine Blood Trace-lysed H Bedside Urine Nitrite Negative (LAB) Bedside Urine Negative Leukocyte Esterase (L Test 09/27/18 04:01 09/27/18 06:02 Lactic Acid Level 1.4 0.9 Prothrombin Time 13.0 Prothrombin Time Ratio 1.0 INR International 0.97 Normalized Ratio Activated 24.1 Partial Thromboplast Time Hemoglobin A1c 9.1 H HPI/ROS Admit Date/Time Admit Date/Time Sep 27, 2018 at 03:41 Hx of Present Illness Chief complaint: Altered mental status times 1 week The following history was obtained from the daughter as patient was not able to provide history given clinical condition. this is a 78-year-old female with a past medical history of CVA, normal pressure hydrocephalus status post SOAKER HIDES shunt who presents today with her daughter after having altered mental status times 1 week.As per the daughter the patient was her normal self approximately 1 week ago when she started noticing that her mother was starting to talk less and not move around as much. At her baseline the patient does use her walker and she converses normally. She does smoke marijuana and uses marijuana Gummies on occasion. Daughter reported that she was concerned that maybe she had a urinary tract infection so she did receive antibiotics from her primary care doctor and she did give her antibiotics for urinary tract infection however her symptoms did not resolve. Daughter denies any fevers. She did notice a vaginal discharge. At baseline patient is able to eat her food normally. The daughter has also noticed that her blood pressures and her blood sugars have been elevated recently. Allergies: NKDA Medications: See MAR ROS Subjective hx not possible: pt non-verbal PMH/Family/Social Past Medical History Diabetes mellitus, hypertension, dementia, normal pressure hydrocephalus status post SOAKER HIDES shunt Medications Current Medications Potassium Chloride/Sodium Chloride 1,000 ml @ 80 mls/hr [id number] IV ; Start 09/27/18 at 04:30; Stop 09/28/18 at 04:29 Diagnostic Test (Pha) (Accu-Chek) 1 ea 02 XX ; Start 09/28/18 at 02:00 Insulin Aspart (Novolog Insulin Pen) NOVOLOG *MILD* ALGORITHM WITH MEALS BEDTIME SC ; Start 09/27/18 at 08:00 Hydralazine HCl (Apresoline) 10 mg Q6H PRN IV ELEVATED BLOOD PRESSURE; Start 09/27/18 at 04:30 Losartan Potassium (Cozaar) 100 mg DAILY PO ; Start 09/27/18 at 09:00 Miscellaneous Information 1 ea NOTE XX ; Start 09/27/18 at 04:30 Glucose (Glutose) 15 gm Q15M PRN PO DECREASED GLUCOSE; Start 09/27/18 at 04:30 Glucose (Glutose) 22.5 gm Q15M PRN PO DECREASED GLUCOSE; Start 09/27/18 at 04:30 Dextrose (D50w Syringe) 25 ml Q15M PRN IV DECREASED GLUCOSE; Start 09/27/18 at 04:30 Dextrose (D50w Syringe) 50 ml Q15M PRN IV DECREASED GLUCOSE; Start 09/27/18 at 04:30 Glucagon (Glucagen) 1 mg Q15M PRN IM DECREASED GLUCOSE; Start 09/27/18 at 04:30 Glucose (Glutose) 15 gm Q15M PRN BUCCAL DECREASED GLUCOSE; Start 09/27/18 at 04:30 IV Flush (NS 3 ml) 3 ml PER PROTOCOL IV ; Start 09/27/18 at 06:30 Acetaminophen (Tylenol Tab) 650 mg Q6H PRN PO .PAIN 1-3 OR TEMP; Start 09/27/18 at 06:30 Coded Allergies: No Known Allergy (Unverified , 09/27/18) Past Surgical History VPS Family History Significant Family History: no pertinent family hx Social History Alcohol Use: none Smoking Status: Never smoker Drug Use: marijuana Exam/Review of Systems Vital Signs Vitals Vital Signs Date Temp Pulse Resp B/P (MAP) Pulse Ox O2 O2 Flow FiO2 Time Delivery Rate 09/27/18 97.4 78 17 175/77 94 07:38 (109) 09/27/18 Room Air 01:26 Exam Exam General: Patient is currently lying in bed she appears awake but she is not responding to questions or conversing. She appears to have a masked facies. He does appear tired. HEENT: Atraumatic, normocephalic. The pupils are equal, round and reactive. E xtraocular motor are intact Neck: Supple with full range of motion. No rigidity or meningismus Chest: Nontender Lungs: Clear to auscultation bilaterally no crackles rales or wheezing Heart: Normal S1-S2, Regular rhythm and rate. Abdomen: Soft , nontender, nondistended , bowel sounds are present. No guarding no rebound tenderness , No masses or organomegaly. No costovertebral temporal angle mass Extremities: Normal to inspection, no edema no cyanosis Neurologic: Awake and looking around but not responsive to any verbal commands or converted but not conversing. Further neurological exam is limited secondary to her clinical condition. Additional Comments PROCEDURE: CT Brain without contrast. CLINICAL INDICATION: Altered mental status TECHNIQUE: CT scan of the brain was performed on a multidetector high- resolution CT scan. Axial imaging was obtained of the brain without contrast administration. Coronal and sagittal reformatted images were obtained from the axial source images. Standard CT scan of the head without contrast protocols were performed. The total exam CTDI equals 39.64 mGy and the total exam DLP equals 713.51 mGy- cm. One or more of the following dose reduction techniques were used: - Automated exposure control. - Adjustment of the mA and/or kV according to patient size. Use of iterative reconstruction technique. Dicom images are available COMPARISON: CT head without contrast 03/07/2017 and MRI of the brain 03/08/2017 FINDINGS: Right parietal ventriculostomy with tip terminating along the anterior aspect of the anterior horn of the right lateral ventricle. No change in the diffuse ventriculomegaly without midline shift consistent with nonobstructing hydrocephalus. The peripheral CSF spaces are prominent consistent with moderate generalized cerebral and cerebellar volume loss. Moderate periventricular and subcortical deep white matter changes consistent with chronic microvascular ischemic disease. Encephalomalacia adjacent to the right ventriculostomy catheter. No evidence of intracranial masses hemorrhages or midline shift. The remainder of the avelar-white matter differentiation is unremarkable. The bones of the calvarium are otherwise unremarkable. Atherosclerotic vascular disease of the distal vertebral arteries and cavernous carotid arteries. Minimal chronic right maxillary and bilateral ethmoid sinus disease. Remainder the paranasal sinuses and mastoids are unremarkable. IMPRESSION: 1. Right parietal ventriculostomy terminating along the anterior aspect of the anterior horn right lateral ventricle. Encephalomalacia adjacent to the ventriculostomy catheter. 2. Diffuse ventriculomegaly consistent with nonobstructing hydrocephalus. 3. Moderate generalized cerebral and cerebellar volume loss and nonspecific chronic microvascular ischemic disease. 4. No evidence of intracranial masses hemorrhages or midline shift. RPTAT:AAJJ Physician Edilberto Date Time Electronically viewed and signed by Physician Edilberto on 09/27/2018 03:02 BM/ CC: MARIA ISABEL CASTANEDA [id number] PROCEDURE: Single view chest. CLINICAL INDICATION: Altered mental status TECHNIQUE: Single view of the chest was obtained COMPARISON: CR CHEST 03/07/2017 FINDINGS: Length of tubing extending over the right thorax appears intact. The lungs are clear. There is no evidence of an effusion or pneumothorax. Atherosclerotic calcifications at the aortic arch, cardiac silhouette and mediastinal contours otherwise unremarkable. Degenerate marginal spurring throughout the thoracic spine and mild osteoarthritis of the right shoulder. IMPRESSION: 1. No acute cardiopulmonary abnormality. 2. Aortic atherosclerosis. RPTAT: HJBB Physician Karl Date Time Electronically viewed and signed by Physician Karl on 09/27/2018 03:02 xB/ CC: MARIA ISABEL CASTANEDA [id number] PATRICIA LEVINE Sep 27, 2018 08:08
[2018-09-27] MEDS: FOLIC ACID 0.4 MG TAB PO SCH (09:00)
[2018-09-27] MEDS ORDERED: LOSARTAN 50 MG TAB PO SCH (09:00)
[2018-09-27] MEDS: INSULIN ASPART [NOVOLOG] 3 ML PEN SC SCH ×4 (09:11→20:54)
[2018-09-27] MEDS: AMLODIPINE 10 MG TAB PO SCH (10:45)
[2018-09-27] MEDS: 1/2 NS + KCL 20 MEQ 1,000 ML IV SCH ×2 (10:45→17:00)
[2018-09-27] MEDS: POTASSIUM CHLORIDE 100 ML IVPB SCH ×3 (11:45→15:13)
[2018-09-27] MEDS: hydrALAzine 20 MG INJ IV PRN (15:13)
--- NOTE | 2018-09-27 15:52 | CONS ---
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 The clinical picture could be consistent w/ an acute encephalopathy. Stroke is not yet excluded. Seizure is less likely. Head CT is without obvious acute intracranial pathology. P: MRI brain for further characterization Add FT4 Other medical management per primary [place] as necessary Limit sedating medications where possible PT/OT/ST as necessary Will follow clinically Consultation Date/Type/Reason Admit Date/Time Sep 27, 2018 at 03:41 Type of Consult Neurology Reason for Consultation ams Requesting Provider: PATRICIA LEVINE Date/Time of Note DATE: 09/27/18 TIME: 15:52 Hx of Present Illness The pt is unable to contribute a hx. It is elsewhere noted: Hx of Present Illness Chief complaint: Altered mental status times 1 week The following history was obtained from the daughter as patient was not able to provide history given clinical condition. 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 At her baseline the patient does use her walker and she converses normally. She does smoke marijuana and uses marijuana Gummies on occasion. Daughter reported that she was concerned that maybe she had a urinary tract infection so she did receive antibiotics from her primary care doctor and she did give her antibiotics for urinary tract infection however her symptoms did not resolve. Daughter denies any fevers. She did notice a vaginal discharge. At baseline patient is able to eat her food normally. The daughter has also noticed that her blood pressures and her blood sugars have been elevated recently. Subjective hx not possible: pt non-verbal Exam/Review of Systems Exam Vitals Vital Signs Date Temp Pulse Resp B/P (MAP) Pulse Ox O2 O2 Flow FiO2 Time Delivery Rate 09/27/18 98.6 96 17 152/66 100 15:33 (94) 09/27/18 Room Air 01:26 Exam PE: Gen Appearance: No Apparent Distress HEENT: Normocephalic Cardiovascular: Regular rate Abdomen: Soft Extremities: Dry NE: The patient was awake, alert, though nonverbal. Able to track. Unable to follow any commands. Cranial nerve examination was limited by mental status. Pupils were equal and reactive to light. There was no afferent pupillary defect. Funduscopic examination was limited. Face was grossly symmetric, w/ present corneal and cough reflexes. Tone was increased in the BUE. Muscle bulk was diminished. I did not see fasciculations. The patient withdrew to noxious stimulation x 4. Coordination and gait testing was limited by mental status. Arm and leg reflexes were within normal limits and symmetric. Delgado's sign was absent. Plantar responses were flexor. Results Result Diagram: 09/27/18 0055 09/27/18 0600 Results 24hrs Laboratory Tests Test 09/27/18 00:55 09/27/18 01:39 09/27/18 02:20 09/27/18 02:25 White Blood Count 6.2 # Red Blood Count 5.57 H Hemoglobin 15.3 Hematocrit 47.6 H Mean Corpuscular 85.5 Volume Mean Corpuscular 27.5 L Hemoglobin Mean Corpuscular 32.1 Hemoglobin Concen t Red Cell 13.7 Distribution Width Platelet Count 140 Mean Platelet 11.3 H Volume Immature 1.500 H Granulocytes % Neutrophils % 87.7 H Lymphocytes % 5.8 L Monocytes % 4.5 Eosinophils % 0.2 Basophils % 0.3 Nucleated Red 0.0 Blood Cells % Immature 0.090 H Granulocytes # Neutrophils # 5.4 Lymphocytes # 0.4 L Monocytes # 0.3 Eosinophils # 0.0 Basophils # 0.0 Nucleated Red 0.0 Blood Cells # Prothrombin Time 11.7 L Prothrombin Time 0.9 Ratio INR International 0.85 Normalized Ratio Activated 22.2 L Partial Thrombopl ast Time Sodium Level 145 H Potassium Level 3.1 L Chloride Level 92 L Carbon Dioxide 45 *H Level Anion Gap 8 Blood Urea 25 H Nitrogen Creatinine 0.60 Est Glomerular Filtrat Rate mL/min Glucose Level 352 H Lactic Acid Level 2.2 *H Calcium Level 10.9 H Total Bilirubin 0.5 Direct Bilirubin 0.00 Indirect 0.5 Bilirubin Aspartate Amino 16 Transf (AST/SGOT) Alanine 37 Aminotransferase (ALT/SGPT) Alkaline 102 Phosphatase Troponin I 0.026 Total Protein 7.0 Albumin 4.0 Globulin 3.00 Albumin/Globulin 1.33 Ratio Salicylates Level < 1.0 L Acetaminophen < 10.0 L Level Ethyl Alcohol < 10.0 H Level Bedside Glucose 320 H Urine Color YELLOW Urine Clarity CLOUDY A Urine pH 9.0 Urine Specific 1.021 [place] Urine Ketones NEGATIVE Urine Nitrite NEGATIVE Urine Bilirubin NEGATIVE Urine NEGATIVE Urobilinogen Urine Leukocyte NEGATIVE Esterase Urine Microscopic 1 RBC Urine Microscopic 4 WBC Urine Bacteria FEW A Urine Hemoglobin NEGATIVE Urine Glucose 3+ H Urine Total 2+ H Protein Urine Opiates Negative Screen Urine Negative Barbiturates Urine Negative Amphetamines Screen Urine Negative Benzodiazepines Screen Urine Cocaine Negative Screen Urine Positive Cannabinoids Bedside Urine pH >=9.0 (LAB) Bedside Urine 2+ H Protein (LAB) Bedside Urine 0.50% H Glucose (UA) Bedside Urine Negative Ketones (LAB) Bedside Urine Trace-lysed H Blood Bedside Urine Negative Nitrite (LAB) Bedside Urine Negative Leukocyte Esteras e (L Test 09/27/18 04:01 09/27/18 06:00 09/27/18 06:02 09/27/18 08:17 Lactic Acid Level 1.4 0.9 Sodium Level 146 H Potassium Level 2.5 *L Chloride Level 100 Carbon Dioxide 43 *H Level Anion Gap 3 L Blood Urea 22 H Nitrogen Creatinine 0.51 Est Glomerular Filtrat Rate mL/min Glucose Level 275 H Calcium Level 9.7 Total Bilirubin 0.4 Direct Bilirubin 0.00 Indirect 0.4 Bilirubin Aspartate Amino 11 L Transf (AST/SGOT) Alanine 42 Aminotransferase (ALT/SGPT) Alkaline 71 Phosphatase Total Protein 5.0 #L Albumin 2.9 #L Globulin 2.10 Albumin/Globulin 1.38 Ratio Prothrombin Time 13.0 Prothrombin Time 1.0 Ratio INR International 0.97 Normalized Ratio Activated 24.1 Partial Thrombopl ast Time Hemoglobin A1c 9.1 H Bedside Glucose 255 H Test 09/27/18 09:59 09/27/18 11:44 09/27/18 14:23 Blood Gas Blood arterial Specimen Source Arterial Blood 09/27/2018 10:14:48 Date Drawn AM Arterial Blood pH 7.496 H (Temp corrected) Arterial Blood 50.8 H pCO2 (Temp correct) Arterial Blood 73.0 L pO2 (Temp corrected) Arterial Blood 38.4 H HCO3 Arterial Blood 13.2 H Base Excess Arterial Blood 94.8 L Oxygen Saturation Thomas Test ACCEPTAB Arterial Blood Left Radial Gas Puncture Site Arterial 0.2 Blood Carboxyhemo globin Arterial Blood 0.3 Methemoglobin Blood Gas A-a O2 15.9 Differential Oxyhemoglobin 94.3 Percent Blood Gas 37.0 Temperature Blood Gas ROOM AIR Modality FiO2 21.0 Blood Gas TM Notified Whom Blood Gas 09/27/2018 10:25:23 Notified Time AM Bedside Glucose 262 H Phosphorus Level 2.3 L Magnesium Level 1.8 Ammonia 12 Vitamin B12 Level Pending Thyroid Pending Stimulating Hormone (TSH) Medications Medication Current Medications Potassium Chloride/Sodium Chloride 1,000 ml @ 80 mls/hr [id number] IV Last administered on 09/27/18at 10:45; Admin Dose 80 MLS/HR; Start 09/27/18 at 04:30; Stop 09/28/18 at 04:29 Diagnostic Test (Pha) (Accu-Chek) 1 ea 02 XX ; Start 09/28/18 at 02:00 Insulin Aspart (Novolog Insulin Pen) NOVOLOG *MILD* ALGORITHM WITH MEALS BEDTIME SC Last administered on 09/27/18at 11:48; Admin Dose 4 UNIT; Start 09/27/18 at 08:00 Hydralazine HCl (Apresoline) 10 mg Q6H PRN IV ELEVATED BLOOD PRESSURE Last administered on 09/27/18at 15:13; Admin Dose 10 MG; Start 09/27/18 at 04:30 Losartan Potassium (Cozaar) 100 mg DAILY PO ; Start 09/27/18 at 09:00 Miscellaneous Information 1 ea NOTE XX ; Start 09/27/18 at 04:30 Glucose (Glutose) 15 gm Q15M PRN PO DECREASED GLUCOSE; Start 09/27/18 at 04:30 Glucose (Glutose) 22.5 gm Q15M PRN PO DECREASED GLUCOSE; Start 09/27/18 at 04:30 Dextrose (D50w Syringe) 25 ml Q15M PRN IV DECREASED GLUCOSE; Start 09/27/18 at 04:30 Dextrose (D50w Syringe) 50 ml Q15M PRN IV DECREASED GLUCOSE; Start 09/27/18 at 04:30 Glucagon (Glucagen) 1 mg Q15M PRN IM DECREASED GLUCOSE; Start 09/27/18 at 04:30 Glucose (Glutose) 15 gm Q15M PRN BUCCAL DECREASED GLUCOSE; Start 09/27/18 at 04:30 IV Flush (NS 3 ml) 3 ml PER PROTOCOL IV ; Start 09/27/18 at 06:30 Acetaminophen (Tylenol Tab) 650 mg Q6H PRN PO .PAIN 1-3 OR TEMP; Start 09/27/18 at 06:30 Amlodipine Besylate (Norvasc) 10 mg DAILY PO Last administered on 09/27/18at 10:45; Admin Dose 10 MG; Start 09/27/18 at 09:00 Folic Acid (Folic Acid) 0.8 mg DAILY PO ; Start 09/27/18 at 09:00 Potassium Chloride 100 ml @ 50 mls/hr Q2H IVPB Last administered on 09/27/18at 15:13; Admin Dose 50 MLS/HR; Start 09/27/18 at 11:00; Stop 09/27/18 at 16:59 Past Medical History reviewed Home Meds Reported Medications Cyanocobalamin (Vitamin B12) Unknown Strength Tab, PO, TAB 09/27/18 Cholecalciferol (Vitamin D3) (Vitamin D3) 500 Unit/5 Ml Liquid, 2000 UNIT PO DAILY 09/27/18 Acetaminophen* (Acetaminophen*) 500 MG Extra Strength Tablet, 500 MG PO Q4H PRN for PAIN AND OR ELEVATED TEMP, TAB 09/27/18 Multivitamins* (Theragran*) 1 Tab Tab, 1 TAB PO DAILY, TAB 09/27/18 Folic Acid* (Folic Acid*) 0.8 Mg Tablet, 0.8 MG PO DAILY, TAB 09/27/18 Lisinopril* (Lisinopril*) 40 Mg Tablet, 40 MG PO DAILY, #30 TAB 09/27/18 Amlodipine Besylate* (Amlodipine Besylate*) 10 Mg Tablet, 10 MG PO DAILY, #30 TAB 09/27/18 Metformin Hcl* (Metformin Hcl*) 500 Mg Tablet, 500 MG PO DAILY, #30 TAB 03/07/17 Discontinued Reported Medications Olmesartan Medoxomil (Benicar) 40 Mg Tablet, 40 MG PO DAILY, #30 TAB 03/07/17 Medications Current Medications Potassium Chloride/Sodium Chloride 1,000 ml @ 80 mls/hr [id number] IV Last administered on 09/27/18at 10:45; Admin Dose 80 MLS/HR; Start 09/27/18 at 04:30; Stop 09/28/18 at 04:29 Diagnostic Test (Pha) (Accu-Chek) 1 02 XX ; Start 09/28/18 at 02:00 Insulin Aspart (Novolog Insulin Pen) NOVOLOG *MILD* ALGORITHM WITH MEALS BEDTIME SC Last administered on 09/27/18at 11:48; Admin Dose 4 UNIT; Start 09/27/18 at 08:00 Hydralazine HCl (Apresoline) 10 mg Q6H PRN IV ELEVATED BLOOD PRESSURE Last administered on 09/27/18at 15:13; Admin Dose 10 MG; Start 09/27/18 at 04:30 Losartan Potassium (Cozaar) 100 mg DAILY PO ; Start 09/27/18 at 09:00 Miscellaneous Information 1 ea NOTE XX ; Start 09/27/18 at 04:30 Glucose (Glutose) 15 gm Q15M PRN PO DECREASED GLUCOSE; Start 09/27/18 at 04:30 Glucose (Glutose) 22.5 gm Q15M PRN PO DECREASED GLUCOSE; Start 09/27/18 at 04:30 Dextrose (D50w Syringe) 25 ml Q15M PRN IV DECREASED GLUCOSE; Start 09/27/18 at 04:30 Dextrose (D50w Syringe) 50 ml Q15M PRN IV DECREASED GLUCOSE; Start 09/27/18 at 04:30 Glucagon (Glucagen) 1 mg Q15M PRN IM DECREASED GLUCOSE; Start 09/27/18 at 04:30 Glucose (Glutose) 15 gm Q15M PRN BUCCAL DECREASED GLUCOSE; Start 09/27/18 at 04:30 IV Flush (NS 3 ml) 3 ml PER PROTOCOL IV ; Start 09/27/18 at 06:30 Acetaminophen (Tylenol Tab) 650 mg Q6H PRN PO .PAIN 1-3 OR TEMP; Start 09/27/18 at 06:30 Amlodipine Besylate (Norvasc) 10 mg DAILY PO Last administered on 09/27/18at 10:45; Admin Dose 10 MG; Start 09/27/18 at 09:00 Folic Acid (Folic Acid) 0.8 mg DAILY PO ; Start 09/27/18 at 09:00 Potassium Chloride 100 ml @ 50 mls/hr Q2H IVPB Last administered on 09/27/18at 15:13; Admin Dose 50 MLS/HR; Start 09/27/18 at 11:00; Stop 09/27/18 at 16:59 Allergies: Coded Allergies: No Known Allergy (Unverified , 09/27/18) Past Surgical History reviewed Social History reviewed Alcohol Use: none Smoking Status: Never smoker Drug Use: marijuana CHRIS JONES NP Sep 27, 2018 15:52 TOMY ZACARIAS Sep 27, 2018 17:15
--- NOTE | 2018-09-27 16:35 | PN ---
Date/Time of Note Date/Time of Note DATE: 09/27/18 TIME: 16:34 Assessment/Plan VTE Prophylaxis SCD applied (from Nsg): Yes Pharmacological prophylaxis: heparin Lines/Catheters IV Catheter Type (from Nrsg): Peripheral IV Urinary Cath still in place: No Assessment/Plan Hospital Course - unclear etiology of metabolic alkalosis with repsiratoyr acidosis, supporitve care - DMII: basal/bolus - obtain further collateral - Neurology consult pending - Replete electrolytes Result Diagram: 09/27/18 0055 09/27/18 0600 Results 24hrs Laboratory Tests Test 09/27/18 00:55 09/27/18 01:39 09/27/18 02:20 09/27/18 02:25 White Blood Count 6.2 # Red Blood Count 5.57 H Hemoglobin 15.3 Hematocrit 47.6 H Mean Corpuscular 85.5 Volume Mean Corpuscular 27.5 L Hemoglobin Mean Corpuscular 32.1 Hemoglobin Concen t Red Cell 13.7 Distribution Width Platelet Count 140 Mean Platelet 11.3 H Volume Immature 1.500 H Granulocytes % Neutrophils % 87.7 H Lymphocytes % 5.8 L Monocytes % 4.5 Eosinophils % 0.2 Basophils % 0.3 Nucleated Red 0.0 Blood Cells % Immature 0.090 H Granulocytes # Neutrophils # 5.4 Lymphocytes # 0.4 L Monocytes # 0.3 Eosinophils # 0.0 Basophils # 0.0 Nucleated Red 0.0 Blood Cells # Prothrombin Time 11.7 L Prothrombin Time 0.9 Ratio INR International 0.85 Normalized Ratio Activated 22.2 L Partial Thrombopl ast Time Sodium Level 145 H Potassium Level 3.1 L Chloride Level 92 L Carbon Dioxide 45 *H Level Anion Gap 8 Blood Urea 25 H Nitrogen Creatinine 0.60 Est Glomerular Filtrat Rate mL/min Glucose Level 352 H Lactic Acid Level 2.2 *H Calcium Level 10.9 H Total Bilirubin 0.5 Direct Bilirubin 0.00 Indirect 0.5 Bilirubin Aspartate Amino 16 Transf (AST/SGOT) Alanine 37 Aminotransferase (ALT/SGPT) Alkaline 102 Phosphatase Troponin I 0.026 Total Protein 7.0 Albumin 4.0 Globulin 3.00 Albumin/Globulin 1.33 Ratio Salicylates Level < 1.0 L Acetaminophen < 10.0 L Level Ethyl Alcohol < 10.0 H Level Bedside Glucose 320 H Urine Color YELLOW Urine Clarity CLOUDY A Urine pH 9.0 Urine Specific 1.021 [place] Urine Ketones NEGATIVE Urine Nitrite NEGATIVE Urine Bilirubin NEGATIVE Urine NEGATIVE Urobilinogen Urine Leukocyte NEGATIVE Esterase Urine Microscopic 1 RBC Urine Microscopic 4 WBC Urine Bacteria FEW A Urine Hemoglobin NEGATIVE Urine Glucose 3+ H Urine Total 2+ H Protein Urine Opiates Negative Screen Urine Negative Barbiturates Urine Negative Amphetamines Screen Urine Negative Benzodiazepines Screen Urine Cocaine Negative Screen Urine Positive Cannabinoids Bedside Urine pH >=9.0 (LAB) Bedside Urine 2+ H Protein (LAB) Bedside Urine 0.50% H Glucose (UA) Bedside Urine Negative Ketones (LAB) Bedside Urine Trace-lysed H Blood Bedside Urine Negative Nitrite (LAB) Bedside Urine Negative Leukocyte Esteras e (L Test 09/27/18 04:01 09/27/18 06:00 09/27/18 06:02 09/27/18 08:17 Lactic Acid Level 1.4 0.9 Sodium Level 146 H Potassium Level 2.5 *L Chloride Level 100 Carbon Dioxide 43 *H Level Anion Gap 3 L Blood Urea 22 H Nitrogen Creatinine 0.51 Est Glomerular Filtrat Rate mL/min Glucose Level 275 H Calcium Level 9.7 Total Bilirubin 0.4 Direct Bilirubin 0.00 Indirect 0.4 Bilirubin Aspartate Amino 11 L Transf (AST/SGOT) Alanine 42 Aminotransferase (ALT/SGPT) Alkaline 71 Phosphatase Total Protein 5.0 #L Albumin 2.9 #L Globulin 2.10 Albumin/Globulin 1.38 Ratio Prothrombin Time 13.0 Prothrombin Time 1.0 Ratio INR International 0.97 Normalized Ratio Activated 24.1 Partial Thrombopl ast Time Hemoglobin A1c 9.1 H Bedside Glucose 255 H Test 09/27/18 09:59 09/27/18 11:44 09/27/18 14:23 Blood Gas Blood arterial Specimen Source Arterial Blood 09/27/2018 10:14:48 Date Drawn AM Arterial Blood pH 7.496 H (Temp corrected) Arterial Blood 50.8 H pCO2 (Temp correct) Arterial Blood 73.0 L pO2 (Temp corrected) Arterial Blood 38.4 H HCO3 Arterial Blood 13.2 H Base Excess Arterial Blood 94.8 L Oxygen Saturation Thomas Test ACCEPTAB Arterial Blood Left Radial Gas Puncture Site Arterial 0.2 Blood Carboxyhemo globin Arterial Blood 0.3 Methemoglobin Blood Gas A-a O2 15.9 Differential Oxyhemoglobin 94.3 Percent Blood Gas 37.0 Temperature Blood Gas ROOM AIR Modality FiO2 21.0 Blood Gas TM Notified Whom Blood Gas 09/27/2018 10:25:23 Notified Time AM Bedside Glucose 262 H Phosphorus Level 2.3 L Magnesium Level 1.8 Ammonia 12 Vitamin B12 Level > 1000 H Thyroid 0.301 L Stimulating Hormone (TSH) Subjective 24 Hr Interval Summary Free Text/Dictation Calm comfortable nonverbal Exam/Review of Systems Exam Vitals Vital Signs Date Temp Pulse Resp B/P (MAP) Pulse Ox O2 O2 Flow FiO2 Time Delivery Rate 09/27/18 98.6 96 17 152/66 100 15:33 (94) 09/27/18 Room Air 01:26 Constitutional: alert, oriented, well developed Psych: no complaints, nl mood/affect Head: normocephalic, atraumatic Eyes: nl conjunctiva, EOMI, nl lids, nl sclera, PERRL ENMT: nl external ears & nose, nl lips & teeth, nl nasal mucosa & septum Neck: supple, non-tender Respiratory: clear to auscultation, normal air movement Cardiovascular: regular rate and rhythm, nl pulses Gastrointestinal: soft, nl liver, spleen, non-tender Musculoskeletal: nl extremities to inspection, nl gait and stance Extremities: normal pulses 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: 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 SERVICE 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 II-XII intact, nl mental status, nl speech, nl strength Skin: nl turgor; No rash or lesions Lymph: nl lymph nodes Results Results 24hrs Laboratory Tests Test 09/27/18 00:55 09/27/18 01:39 09/27/18 02:20 09/27/18 02:25 White Blood Count 6.2 # Red Blood Count 5.57 H Hemoglobin 15.3 Hematocrit 47.6 H Mean Corpuscular 85.5 Volume Mean Corpuscular 27.5 L Hemoglobin Mean Corpuscular 32.1 Hemoglobin Concen t Red Cell 13.7 Distribution Width Platelet Count 140 Mean Platelet 11.3 H Volume Immature 1.500 H Granulocytes % Neutrophils % 87.7 H Lymphocytes % 5.8 L Monocytes % 4.5 Eosinophils % 0.2 Basophils % 0.3 Nucleated Red 0.0 Blood Cells % Immature 0.090 H Granulocytes # Neutrophils # 5.4 Lymphocytes # 0.4 L Monocytes # 0.3 Eosinophils # 0.0 Basophils # 0.0 Nucleated Red 0.0 Blood Cells # Prothrombin Time 11.7 L Prothrombin Time 0.9 Ratio INR International 0.85 Normalized Ratio Activated 22.2 L Partial Thrombopl ast Time Sodium Level 145 H Potassium Level 3.1 L Chloride Level 92 L Carbon Dioxide 45 *H Level Anion Gap 8 Blood Urea 25 H Nitrogen Creatinine 0.60 Est Glomerular Filtrat Rate mL/min Glucose Level 352 H Lactic Acid Level 2.2 *H Calcium Level 10.9 H Total Bilirubin 0.5 Direct Bilirubin 0.00 Indirect 0.5 Bilirubin Aspartate Amino 16 Transf (AST/SGOT) Alanine 37 Aminotransferase (ALT/SGPT) Alkaline 102 Phosphatase Troponin I 0.026 Total Protein 7.0 Albumin 4.0 Globulin 3.00 Albumin/Globulin 1.33 Ratio Salicylates Level < 1.0 L Acetaminophen < 10.0 L Level Ethyl Alcohol < 10.0 H Level Bedside Glucose 320 H Urine Color YELLOW Urine Clarity CLOUDY A Urine pH 9.0 Urine Specific 1.021 [place] Urine Ketones NEGATIVE Urine Nitrite NEGATIVE Urine Bilirubin NEGATIVE Urine NEGATIVE Urobilinogen Urine Leukocyte NEGATIVE Esterase Urine Microscopic 1 RBC Urine Microscopic 4 WBC Urine Bacteria FEW A Urine Hemoglobin NEGATIVE Urine Glucose 3+ H Urine Total 2+ H Protein Urine Opiates Negative Screen Urine Negative Barbiturates Urine Negative Amphetamines Screen Urine Negative Benzodiazepines Screen Urine Cocaine Negative Screen Urine Positive Cannabinoids Bedside Urine pH >=9.0 (LAB) Bedside Urine 2+ H Protein (LAB) Bedside Urine 0.50% H Glucose (UA) Bedside Urine Negative Ketones (LAB) Bedside Urine Trace-lysed H Blood Bedside Urine Negative Nitrite (LAB) Bedside Urine Negative Leukocyte Esteras e (L Test 09/27/18 04:01 09/27/18 06:00 09/27/18 06:02 09/27/18 08:17 Lactic Acid Level 1.4 0.9 Sodium Level 146 H Potassium Level 2.5 *L Chloride Level 100 Carbon Dioxide 43 *H Level Anion Gap 3 L Blood Urea 22 H Nitrogen Creatinine 0.51 Est Glomerular Filtrat Rate mL/min Glucose Level 275 H Calcium Level 9.7 Total Bilirubin 0.4 Direct Bilirubin 0.00 Indirect 0.4 Bilirubin Aspartate Amino 11 L Transf (AST/SGOT) Alanine 42 Aminotransferase (ALT/SGPT) Alkaline 71 Phosphatase Total Protein 5.0 #L Albumin 2.9 #L Globulin 2.10 Albumin/Globulin 1.38 Ratio Prothrombin Time 13.0 Prothrombin Time 1.0 Ratio INR International 0.97 Normalized Ratio Activated 24.1 Partial Thrombopl ast Time Hemoglobin A1c 9.1 H Bedside Glucose 255 H Test 09/27/18 09:59 09/27/18 11:44 09/27/18 14:23 Blood Gas Blood arterial Specimen Source Arterial Blood 09/27/2018 10:14:48 Date Drawn AM Arterial Blood pH 7.496 H (Temp corrected) Arterial Blood 50.8 H pCO2 (Temp correct) Arterial Blood 73.0 L pO2 (Temp corrected) Arterial Blood 38.4 H HCO3 Arterial Blood 13.2 H Base Excess Arterial Blood 94.8 L Oxygen Saturation Thomas Test ACCEPTAB Arterial Blood Left Radial Gas Puncture Site Arterial 0.2 Blood Carboxyhemo globin Arterial Blood 0.3 Methemoglobin Blood Gas A-a O2 15.9 Differential Oxyhemoglobin 94.3 Percent Blood Gas 37.0 Temperature Blood Gas ROOM AIR Modality FiO2 21.0 Blood Gas TM Notified Whom Blood Gas 09/27/2018 10:25:23 Notified Time AM Bedside Glucose 262 H Phosphorus Level 2.3 L Magnesium Level 1.8 Ammonia 12 Vitamin B12 Level > 1000 H Thyroid 0.301 L Stimulating Hormone (TSH) Medications Medication Current Medications Potassium Chloride/Sodium Chloride 1,000 ml @ 80 mls/hr [id number] IV Last administered on 09/27/18at 10:45; Admin Dose 80 MLS/HR; Start 09/27/18 at 04:30; Stop 09/28/18 at 04:29 Diagnostic Test (Pha) (Accu-Chek) 1 ea 02 XX ; Start 09/28/18 at 02:00 Insulin Aspart (Novolog Insulin Pen) NOVOLOG *MILD* ALGORITHM WITH MEALS BEDTIME SC Last administered on 09/27/18at 11:48; Admin Dose 4 UNIT; Start 09/27/18 at 08:00 Hydralazine HCl (Apresoline) 10 mg Q6H PRN IV ELEVATED BLOOD PRESSURE Last administered on 09/27/18at 15:13; Admin Dose 10 MG; Start 09/27/18 at 04:30 Losartan Potassium (Cozaar) 100 mg DAILY PO ; Start 09/27/18 at 09:00 Miscellaneous Information 1 ea NOTE XX ; Start 09/27/18 at 04:30 Glucose (Glutose) 15 gm Q15M PRN PO DECREASED GLUCOSE; Start 09/27/18 at 04:30 Glucose (Glutose) 22.5 gm Q15M PRN PO DECREASED GLUCOSE; Start 09/27/18 at 04:30 Dextrose (D50w Syringe) 25 ml Q15M PRN IV DECREASED GLUCOSE; Start 09/27/18 at 04:30 Dextrose (D50w Syringe) 50 ml Q15M PRN IV DECREASED GLUCOSE; Start 09/27/18 at 04:30 Glucagon (Glucagen) 1 mg Q15M PRN IM DECREASED GLUCOSE; Start 09/27/18 at 04:30 Glucose (Glutose) 15 gm Q15M PRN BUCCAL DECREASED GLUCOSE; Start 09/27/18 at 04:30 IV Flush (NS 3 ml) 3 ml PER PROTOCOL IV ; Start 09/27/18 at 06:30 Acetaminophen (Tylenol Tab) 650 mg Q6H PRN PO .PAIN 1-3 OR TEMP; Start 09/27/18 at 06:30 Amlodipine Besylate (Norvasc) 10 mg DAILY PO Last administered on 09/27/18at 10:45; Admin Dose 10 MG; Start 09/27/18 at 09:00 Folic Acid (Folic Acid) 0.8 mg DAILY PO ; Start 09/27/18 at 09:00 Potassium Chloride 100 ml @ 50 mls/hr Q2H IVPB Last administered on 09/27/18at 15:13; Admin Dose 50 MLS/HR; Start 09/27/18 at 11:00; Stop 09/27/18 at 16:59 KARIE DAMIAN MD Sep 27, 2018 16:35
[2018-09-28] VITALS (10 sets, daily range): BP systolic 160–178; BP diastolic 72–80; PULSE 53–80; RESP 17–19
[2018-09-28] MEDS: hydrALAzine 20 MG INJ IV PRN (00:16)
[2018-09-28] MEDS: 1/2 NS + KCL 20 MEQ 1,000 ML IV SCH (01:27)
[2018-09-28] MEDS ORDERED: ACCU-CHEK XX SCH (02:00)
[2018-09-28] MEDS ORDERED: morphine 2 MG INJ IV STA (05:17)
--- NOTE | 2018-09-28 07:20 | CONS ---
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 The clinical picture could be consistent w/ an acute encephalopathy. Stroke is not yet excluded. Seizure is less likely. Head CT is without obvious acute intracranial pathology. TSH, FT4, and FT3 are low P: Await MRI brain for further characterization Thyroid and other medical management per primary [place] as necessary Limit sedating medications where possible PT/OT/ST as necessary Will follow clinically Consultation Date/Type/Reason Admit Date/Time Sep 27, 2018 at 03:41 Type of Consult Neurology Reason for Consultation ams Requesting Provider: PATRICIA LEVINE Date/Time of Note DATE: 09/28/18 TIME: 07:18 24 HR Interval Summary Free Text/Dictation Continues acute care Exam Vital Signs Vitals Vital Signs Date Temp Pulse Resp B/P (MAP) Pulse Ox O2 O2 Flow FiO2 Time Delivery Rate 09/28/18 99.5 70 18 167/75 97 04:00 (105) 09/27/18 Room Air 01:26 Intake and Output 09/27/18 09/27/18 09/28/18 1515:00 23:00 07:00 IntakeIntake Total 400 ml 1000 ml BalanceBalance 400 ml 1000 ml Exam PE: Gen Appearance: No Apparent Distress HEENT: Normocephalic Cardiovascular: Regular rate Abdomen: Soft Extremities: Dry NE: The patient was alert though nonverbal. Pupils were equal and reactive to light. There was no afferent pupillary defect. Visual black were normal. Funduscopic examination was limited. Extra-ocular movements were full. Ptosis was absent. There was no nystagmus. Facial sensation was normal. Face was symmetric with normal strength. Hearing was intact. Palate movements were normal. Neck strength was normal. There was normal tongue bulk and speed of movement. Tone was normal. Muscle bulk was normal. I did not see fasciculations. Arms and legs were symmetric. Vibration sensation was normal. Temperature and pinprick sensation was normal. Rapid alternating movements were normal. There was no dysmetria. There was no intention tremor. Gait was deferred due to bedrest. Arm and leg reflexes were symmetric. Delgado's sign was absent. Plantar responses were flexor. TOMY ZACARIAS Sep 28, 2018 07:20
[2018-09-28] MEDS: INSULIN ASPART [NOVOLOG] 3 ML PEN SC SCH ×6 (08:15→21:00)
[2018-09-28] MEDS: POTASSIUM CHLORIDE 100 ML IVPB SCH ×3 (08:44→14:01)
[2018-09-28] MEDS: FOLIC ACID 0.4 MG TAB PO SCH (08:44)
[2018-09-28] MEDS: AMLODIPINE 10 MG TAB PO SCH (08:49)
[2018-09-28] MEDS: LISINOPRIL 20 MG TAB PO SCH (08:50)
[2018-09-28] MEDS: INSULIN GLARGINE [LANTus] (100 UNITS/ML) SYG SC SCH (12:22)
--- NOTE | 2018-09-28 17:03 | PN ---
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 and CVA presents with worsening ence phalopathy - MRI pending - Management per neurology Respiratory acidodisos with metabolic alkalosis - unclear etiology of metabolic alkalosis with repsiratoyr acidosis, supporitve care DMII: titrate basal/bolus insulin Hypokalemia - Replete electrolytes Hypertension: - Continue current meds Result Diagram: 09/28/18 0532 09/28/18 1030 Results 24hrs Laboratory Tests Test 09/27/18 17:22 09/27/18 17:45 09/27/18 20:46 09/28/18 01:40 Sodium Level 142 Potassium Level 3.5 Chloride Level 100 Carbon Dioxide Level 36 H Anion Gap 6 Blood Urea Nitrogen 22 H Creatinine 0.49 Est Glomerular Filtrat Rate mL/min Glucose Level 305 H Calcium Level 9.6 Bedside Glucose 320 H 295 H 225 H Test 09/28/18 05:32 09/28/18 08:10 09/28/18 10:30 09/28/18 12:07 White Blood Count 7.3 Red Blood Count 4.38 # Hemoglobin 11.9 #L Hematocrit 36.6 #L Mean Corpuscular Volume 83.6 Mean Corpuscular 27.2 L Hemoglobin Mean Corpuscular 32.5 Hemoglobin Concent Red Cell Distribution 13.9 Width Platelet Count 121 L Mean Platelet Volume 11.3 H Immature Granulocytes % 1.400 H Neutrophils % 89.0 H Lymphocytes % 5.0 L Monocytes % 4.5 Eosinophils % 0.0 Basophils % 0.1 Nucleated Red Blood 0.0 Cells % Immature Granulocytes # 0.100 H Neutrophils # 6.5 Lymphocytes # 0.4 L Monocytes # 0.3 Eosinophils # 0.0 Basophils # 0.0 Nucleated Red Blood 0.0 Cells # Sodium Level 141 136 Potassium Level 2.8 *L 3.7 Chloride Level 99 98 Carbon Dioxide Level 38 H 34 H Anion Gap 4 L 4 L Blood Urea Nitrogen 19 22 H Creatinine 0.50 0.41 L Est Glomerular Filtrat Rate mL/min Glucose Level 213 291 H Calcium Level 9.1 8.5 Magnesium Level 1.7 Total Bilirubin 0.5 Direct Bilirubin 0.00 Indirect Bilirubin 0.5 Aspartate Amino 15 Transf (AST/SGOT) Alanine 40 Aminotransferase (ALT/SG PT) Alkaline Phosphatase 61 Total Protein 5.0 L Albumin 2.8 L Globulin 2.20 Albumin/Globulin Ratio 1.27 Triglycerides Level 138 Cholesterol Level 146 LDL Cholesterol, 73 Calculated HDL Cholesterol 45 Cholesterol/HDL Ratio 3.2 Thyroid Stimulating 0.384 L Hormone (TSH) Free Thyroxine 0.54 L Free Triiodothyronine 1.83 L (T3) pg/mL Bedside Glucose 210 277 H Subjective 24 Hr Interval Summary Free Text/Dictation Remains alert Minimally interactive No change to status. Awaiting MRI Exam/Review of Systems Exam Vitals Vital Signs Date Temp Pulse Resp B/P (MAP) Pulse Ox O2 O2 Flow FiO2 Time Delivery Rate 09/28/18 98.1 76 17 161/72 95 15:24 (101) 09/27/18 Room Air 01:26 Intake and Output 09/27/18 09/27/18 09/28/18 1515:00 23:00 07:00 IntakeIntake Total 500 ml 1800 ml BalanceBalance 500 ml 1800 ml Exam Alert Nonverbal Does not respond to my commands L sided hemiplegia R side very weak RRR CTAB Resting comfortably Results Results 24hrs Laboratory Tests Test 09/27/18 17:22 09/27/18 17:45 09/27/18 20:46 09/28/18 01:40 Sodium Level 142 Potassium Level 3.5 Chloride Level 100 Carbon Dioxide Level 36 H Anion Gap 6 Blood Urea Nitrogen 22 H Creatinine 0.49 Est Glomerular Filtrat Rate mL/min Glucose Level 305 H Calcium Level 9.6 Bedside Glucose 320 H 295 H 225 H Test 09/28/18 05:32 09/28/18 08:10 09/28/18 10:30 09/28/18 12:07 White Blood Count 7.3 Red Blood Count 4.38 # Hemoglobin 11.9 #L Hematocrit 36.6 #L Mean Corpuscular Volume 83.6 Mean Corpuscular 27.2 L Hemoglobin Mean Corpuscular 32.5 Hemoglobin Concent Red Cell Distribution 13.9 Width Platelet Count 121 L Mean Platelet Volume 11.3 H Immature Granulocytes % 1.400 H Neutrophils % 89.0 H Lymphocytes % 5.0 L Monocytes % 4.5 Eosinophils % 0.0 Basophils % 0.1 Nucleated Red Blood 0.0 Cells % Immature Granulocytes # 0.100 H Neutrophils # 6.5 Lymphocytes # 0.4 L Monocytes # 0.3 Eosinophils # 0.0 Basophils # 0.0 Nucleated Red Blood 0.0 Cells # Sodium Level 141 136 Potassium Level 2.8 *L 3.7 Chloride Level 99 98 Carbon Dioxide Level 38 H 34 H Anion Gap 4 L 4 L Blood Urea Nitrogen 19 22 H Creatinine 0.50 0.41 L Est Glomerular Filtrat Rate mL/min Glucose Level 213 291 H Calcium Level 9.1 8.5 Magnesium Level 1.7 Total Bilirubin 0.5 Direct Bilirubin 0.00 Indirect Bilirubin 0.5 Aspartate Amino 15 Transf (AST/SGOT) Alanine 40 Aminotransferase (ALT/SG PT) Alkaline Phosphatase 61 Total Protein 5.0 L Albumin 2.8 L Globulin 2.20 Albumin/Globulin Ratio 1.27 Triglycerides Level 138 Cholesterol Level 146 LDL Cholesterol, 73 Calculated HDL Cholesterol 45 Cholesterol/HDL Ratio 3.2 Thyroid Stimulating 0.384 L Hormone (TSH) Free Thyroxine 0.54 L Free Triiodothyronine 1.83 L (T3) pg/mL Bedside Glucose 210 277 H Medications Medication Current Medications Insulin Aspart (Novolog Insulin Pen) NOVOLOG *MILD* ALGORITHM WITH MEALS BEDTIME SC Last administered on 09/28/18at 12:22; Admin Dose 4 UNIT; Start 09/27/18 at 08:00 Hydralazine HCl (Apresoline) 10 mg Q6H PRN IV ELEVATED BLOOD PRESSURE Last administered on 09/28/18at 00:16; Admin Dose 10 MG; Start 09/27/18 at 04:30 Miscellaneous Information 1 ea NOTE XX ; Start 09/27/18 at 04:30 Glucose (Glutose) 15 gm Q15M PRN PO DECREASED GLUCOSE; Start 09/27/18 at 04:30 Glucose (Glutose) 22.5 gm Q15M PRN PO DECREASED GLUCOSE; Start 09/27/18 at 04:30 Dextrose (D50w Syringe) 25 ml Q15M PRN IV DECREASED GLUCOSE; Start 09/27/18 at 04:30 Dextrose (D50w Syringe) 50 ml Q15M PRN IV DECREASED GLUCOSE; Start 09/27/18 at 04:30 Glucagon (Glucagen) 1 mg Q15M PRN IM DECREASED GLUCOSE; Start 09/27/18 at 04:30 Glucose (Glutose) 15 gm Q15M PRN BUCCAL DECREASED GLUCOSE; Start 09/27/18 at 04:30 IV Flush (NS 3 ml) 3 ml PER PROTOCOL IV ; Start 09/27/18 at 06:30 Acetaminophen (Tylenol Tab) 650 mg Q6H PRN PO .PAIN 1-3 OR TEMP; Start 09/27/18 at 06:30 Amlodipine Besylate (Norvasc) 10 mg DAILY PO Last administered on 09/28/18at 08:49; Admin Dose 10 MG; Start 09/27/18 at 09:00 Folic Acid (Folic Acid) 0.8 mg DAILY PO Last administered on 09/28/18at 08:44; Admin Dose 0.8 MG; Start 09/27/18 at 09:00 Lisinopril (Zestril) 40 mg DAILY PO Last administered on 09/28/18at 08:50; Admin Dose 40 MG; Start 09/28/18 at 09:00 Insulin Glargine (Lantus) 8 units DAILY@0800 SC Last administered on 09/28/18 12:22; Admin Dose 8 UNITS; Start 09/28/18 at 11:00 Insulin Aspart (Novolog Insulin Pen) 4 unit WITH MEALS SC Last administered on 09/28/18 12:22; Admin Dose 4 UNIT; Start 09/28/18 at 12:00 KARIE DAMIAN MD Sep 28, 2018 17:03
[2018-09-29] VITALS (12 sets, daily range): BP systolic 145–180; BP diastolic 69–83; PULSE 50–83; RESP 16–19
--- NOTE | 2018-09-29 07:03 | CONS ---
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 The clinical picture could be consistent w/ an acute encephalopathy. Stroke is not yet excluded. Focal motor seizure is possible, though less likely. Head CT is without obvious acute intracranial pathology. TSH, FT4, and FT3 are low P: Await MRI brain for further characterization Add EEG to evaluate for focal abnl Thyroid and other medical management per primary [place] as necessary Limit sedating medications where possible PT/OT/ST as necessary Will follow clinically Consultation Date/Type/Reason Admit Date/Time Sep 27, 2018 at 03:41 Type of Consult Neurology Reason for Consultation ams Requesting Provider: PATRICIA LEVINE Date/Time of Note DATE: 09/29/18 TIME: 07:03 24 HR Interval Summary Free Text/Dictation MRI brain deferred due to programmable VPS.. Exam Vital Signs Vitals Vital Signs Date Temp Pulse Resp B/P (MAP) Pulse Ox O2 O2 Flow FiO2 Time Delivery Rate 09/29/18 50 04:00 09/29/18 97.2 16 156/74 97 04:00 (101) 09/27/18 Room Air 01:26 Intake and Output 09/28/18 09/28/18 09/29/18 1515:00 23:00 07:00 IntakeIntake Total 1400 ml BalanceBalance 1400 ml Exam PE: Gen Appearance: No Apparent Distress HEENT: Normocephalic Cardiovascular: Regular rate Abdomen: Soft Extremities: Dry NE: The patient was alert though nonverbal. Able to fix and follow. Able to follow simple appendicular commands. Pupils were equal and reactive to light. There was no afferent pupillary defect. Visual black were normal. Funduscopic examination was limited. Extra-ocular movements were full. Ptosis was absent. There was no nystagmus. Facial sensation was normal. Face was symmetric with normal strength. Hearing was intact. Palate movements were normal. Neck strength was normal. There was normal tongue bulk and speed of movement. Tone was normal. Muscle bulk was normal. I did not see fasciculations. Arms and legs were symmetric. Vibration sensation was normal. Temperature and pinprick sensation was normal. Rapid alternating movements were normal. There was no dysmetria. There was no intention tremor. Gait was deferred due to bedrest. Arm and leg reflexes were symmetric. Delgado's sign was absent. Plantar responses were flexor. TOMY ZACARIAS Sep 29, 2018 07:03 CHRIS JONES NP Sep 29, 2018 15:00
[2018-09-29] MEDS: INSULIN ASPART [NOVOLOG] 3 ML PEN SC SCH ×6 (07:48→17:12)
[2018-09-29] MEDS: INSULIN GLARGINE [LANTus] (100 UNITS/ML) SYG SC SCH (07:53)
[2018-09-29] MEDS: FOLIC ACID 0.4 MG TAB PO SCH (08:13)
[2018-09-29] MEDS: LISINOPRIL 20 MG TAB PO SCH (08:14)
[2018-09-29] MEDS: AMLODIPINE 10 MG TAB PO SCH (08:14)
[2018-09-29] MEDS ORDERED: POTASSIUM CHLORIDE 100 ML IVPB SCH (09:00)
[2018-09-29] MEDS ORDERED: POTASSIUM CHLORIDE 20 MEQ POWDER FOR ORAL SOLN PO ONE (12:00)
--- NOTE | 2018-09-29 15:09 | PN ---
Date/Time of Note Date/Time of Note DATE: 09/29/18 TIME: 15:08 Assessment/Plan VTE Prophylaxis Risk score (from Nsg)>0 risk: 6 SCD applied (from Nsg): Yes Pharmacological prophylaxis: heparin Lines/Catheters IV Catheter Type (from Nrsg): Peripheral IV Urinary Cath still in place: No Assessment/Plan Hospital Course 78 yo female with NPH s/p TEACHER ASSISTANT shunt and CVA presents with worsening ence phalopathy - MRI pending. Dr Kenney to reset TEACHER ASSISTANT shunt following study - Management per neurology Respiratory acidodisos with metabolic alkalosis - unclear etiology of metabolic alkalosis with respiratory acidosis, supportive care DMII: titrate basal/bolus insulin Hypokalemia - Replete electrolytes Hypertension: - Continue current meds Result Diagram: 09/29/18 0530 09/29/18 1326 Results 24hrs Laboratory Tests Test 09/28/18 17:28 09/28/18 17:40 09/28/18 20:57 09/29/18 02:45 Bedside Glucose 221 H 238 H 139 Sodium Level 139 Potassium Level 3.6 Chloride Level 100 Carbon Dioxide Level 37 H Anion Gap 2 L Blood Urea Nitrogen 21 H Creatinine 0.53 Est Glomerular Filtrat Rate mL/min Glucose Level 225 H Calcium Level 9.9 Test 09/29/18 05:30 09/29/18 07:47 09/29/18 12:11 09/29/18 13:26 White Blood Count 7.1 Red Blood Count 4.54 Hemoglobin 12.4 Hematocrit 37.5 Mean Corpuscular Volume 82.6 Mean Corpuscular 27.3 L Hemoglobin Mean Corpuscular 33.1 Hemoglobin Concent Red Cell Distribution 13.8 Width Platelet Count 121 L Mean Platelet Volume 11.2 H Immature Granulocytes % 1.400 H Neutrophils % 87.6 H Lymphocytes % 6.2 L Monocytes % 4.7 Eosinophils % 0.0 Basophils % 0.1 Nucleated Red Blood 0.0 Cells % Immature Granulocytes # 0.100 H Neutrophils # 6.2 Lymphocytes # 0.4 L Monocytes # 0.3 Eosinophils # 0.0 Basophils # 0.0 Nucleated Red Blood 0.0 Cells # Sodium Level 139 139 Potassium Level 2.9 *L 4.0 Chloride Level 100 98 Carbon Dioxide Level 37 H 34 H Anion Gap 2 L 7 Blood Urea Nitrogen 20 21 H Creatinine 0.42 L 0.46 Est Glomerular Filtrat Rate mL/min Glucose Level 136 # 242 #H Calcium Level 9.2 9.9 Magnesium Level 1.9 Total Bilirubin 0.6 Direct Bilirubin 0.00 Indirect Bilirubin 0.6 Aspartate Amino 17 Transf (AST/SGOT) Alanine 29 Aminotransferase (ALT/SG PT) Alkaline Phosphatase 59 Total Protein 5.1 L Albumin 2.9 L Globulin 2.20 Albumin/Globulin Ratio 1.31 Bedside Glucose 136 264 H Subjective 24 Hr Interval Summary Free Text/Dictation No change to clinical status Awaiting MRI. Spoke to her neurosurgeon Dr Rea who recommended we have our neurosurgeon re-set the device following MRI. Dr Kenney has agreed to do so Exam/Review of Systems Exam Vitals Vital Signs Date Temp Pulse Resp B/P (MAP) Pulse Ox O2 O2 Flow FiO2 Time Delivery Rate 09/29/18 65 12:37 09/29/18 97.9 17 158/69 96 11:12 (98) 09/27/18 Room Air 01:26 Intake and Output 09/28/18 09/28/18 09/29/18 1515:00 23:00 07:00 IntakeIntake Total 1400 ml 500 ml BalanceBalance 1400 ml 500 ml Constitutional: alert, oriented, well developed Psych: no complaints, nl mood/affect Head: normocephalic, atraumatic Eyes: nl conjunctiva, EOMI, nl lids, nl sclera, PERRL ENMT: nl external ears & nose, nl lips & teeth, nl nasal mucosa & septum Neck: supple, non-tender Respiratory: clear to auscultation, normal air movement Cardiovascular: regular rate and rhythm, nl pulses Gastrointestinal: soft, nl liver, spleen, non-tender Musculoskeletal: nl extremities to inspection, nl gait and stance Extremities: normal pulses 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: 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, nl mental status, nl speech, nl strength Skin: nl turgor; No rash or lesions Lymph: nl lymph nodes Results Results 24hrs Laboratory Tests Test 09/28/18 17:28 09/28/18 17:40 09/28/18 20:57 09/29/18 02:45 Bedside Glucose 221 H 238 H 139 Sodium Level 139 Potassium Level 3.6 Chloride Level 100 Carbon Dioxide Level 37 H Anion Gap 2 L Blood Urea Nitrogen 21 H Creatinine 0.53 Est Glomerular Filtrat Rate mL/min Glucose Level 225 H Calcium Level 9.9 Test 09/29/18 05:30 09/29/18 07:47 09/29/18 12:11 09/29/18 13:26 White Blood Count 7.1 Red Blood Count 4.54 Hemoglobin 12.4 Hematocrit 37.5 Mean Corpuscular Volume 82.6 Mean Corpuscular 27.3 L Hemoglobin Mean Corpuscular 33.1 Hemoglobin Concent Red Cell Distribution 13.8 Width Platelet Count 121 L Mean Platelet Volume 11.2 H Immature Granulocytes % 1.400 H Neutrophils % 87.6 H Lymphocytes % 6.2 L Monocytes % 4.7 Eosinophils % 0.0 Basophils % 0.1 Nucleated Red Blood 0.0 Cells % Immature Granulocytes # 0.100 H Neutrophils # 6.2 Lymphocytes # 0.4 L Monocytes # 0.3 Eosinophils # 0.0 Basophils # 0.0 Nucleated Red Blood 0.0 Cells # Sodium Level 139 139 Potassium Level 2.9 *L 4.0 Chloride Level 100 98 Carbon Dioxide Level 37 H 34 H Anion Gap 2 L 7 Blood Urea Nitrogen 20 21 H Creatinine 0.42 L 0.46 Est Glomerular Filtrat Rate mL/min Glucose Level 136 # 242 #H Calcium Level 9.2 9.9 Magnesium Level 1.9 Total Bilirubin 0.6 Direct Bilirubin 0.00 Indirect Bilirubin 0.6 Aspartate Amino 17 Transf (AST/SGOT) Alanine 29 Aminotransferase (ALT/SG PT) Alkaline Phosphatase 59 Total Protein 5.1 L Albumin 2.9 L Globulin 2.20 Albumin/Globulin Ratio 1.31 Bedside Glucose 136 264 H Medications Medication Current Medications Insulin Aspart (Novolog Insulin Pen) NOVOLOG *MILD* ALGORITHM WITH MEALS BEDTIME SC Last administered on 09/29/18at 12:17; Admin Dose 4 UNIT; Start 09/27/18 at 08:00 Hydralazine HCl (Apresoline) 10 mg Q6H PRN IV ELEVATED BLOOD PRESSURE Last administered on 09/28/18at 00:16; Admin Dose 10 MG; Start 09/27/18 at 04:30 Miscellaneous Information 1 ea NOTE XX ; Start 09/27/18 at 04:30 Glucose (Glutose) 15 gm Q15M PRN PO DECREASED GLUCOSE; Start 09/27/18 at 04:30 Glucose (Glutose) 22.5 gm Q15M PRN PO DECREASED GLUCOSE; Start 09/27/18 at 04:30 Dextrose (D50w Syringe) 25 ml Q15M PRN IV DECREASED GLUCOSE; Start 09/27/18 at 04:30 Dextrose (D50w Syringe) 50 ml Q15M PRN IV DECREASED GLUCOSE; Start 09/27/18 at 04:30 Glucagon (Glucagen) 1 mg Q15M PRN IM DECREASED GLUCOSE; Start 09/27/18 at 04:30 Glucose (Glutose) 15 gm Q15M PRN BUCCAL DECREASED GLUCOSE; Start 09/27/18 at 04:30 IV Flush (NS 3 ml) 3 ml PER PROTOCOL IV ; Start 09/27/18 at 06:30 Acetaminophen (Tylenol Tab) 650 mg Q6H PRN PO .PAIN 1-3 OR TEMP; Start 09/27/18 at 06:30 Amlodipine Besylate (Norvasc) 10 mg DAILY PO Last administered on 09/29/18 08:14; Admin Dose 10 MG; Start 09/27/18 at 09:00 Folic Acid (Folic Acid) 0.8 mg DAILY PO Last administered on 09/29/18 08:13; Admin Dose 0.8 MG; Start 09/27/18 at 09:00 Lisinopril (Zestril) 40 mg DAILY PO Last administered on 09/29/18 08:14; Admin Dose 40 MG; Start 09/28/18 at 09:00 Insulin Glargine (Lantus) 8 units DAILY@0800 SC Last administered on 09/29/18 07:53; Admin Dose 8 UNITS; Start 09/28/18 at 11:00 Insulin Aspart (Novolog Insulin Pen) 4 unit WITH MEALS SC Last administered on 09/29/18 12:17; Admin Dose 4 UNIT; Start 09/28/18 at 12:00 KARIE DAMIAN MD Sep 29, 2018 15:09
[2018-09-29] MEDS: hydrALAzine 20 MG INJ IV PRN (22:49)
[2018-09-30] VITALS (13 sets, daily range): BP systolic 151–193; BP diastolic 68–88; PULSE 65–91; RESP 18–22
[2018-09-30] MEDS: INSULIN ASPART [NOVOLOG] 3 ML PEN SC SCH ×8 (02:04→20:40)
[2018-09-30] MEDS: hydrALAzine 20 MG INJ IV PRN ×2 (07:46→20:36)
[2018-09-30] MEDS: INSULIN GLARGINE [LANTus] (100 UNITS/ML) SYG SC SCH (07:55)
--- NOTE | 2018-09-30 07:57 | CONS ---
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 The clinical picture could be consistent w/ an acute on chronic encephalopathy. Stroke is not yet excluded. Focal motor seizure was additionally considered; however, EEG was normal.. Head CT is without obvious acute intracranial pathology. TSH, FT4, and FT3 are low P: Await MRI brain for further characterization Endocrine evaluation when able [place] as necessary Limit sedating medications where possible PT/OT/ST as necessary Other medical management and supportive care per primary Will follow clinically Consultation Date/Type/Reason Admit Date/Time Sep 27, 2018 at 03:41 Type of Consult Neurology Reason for Consultation ams Requesting Provider: PATRICIA LEVINE Date/Time of Note DATE: 09/30/18 TIME: 07:56 24 HR Interval Summary Free Text/Dictation Continues acute care. S/p EEG. Pt remains nonverbal at this time. Exam Vital Signs Vitals Vital Signs Date Temp Pulse Resp B/P (MAP) Pulse Ox O2 O2 Flow FiO2 Time Delivery Rate 09/30/18 97.6 78 20 193/88 97 Room Air 07:13 (123) Intake and Output 09/29/18 09/29/18 09/30/18 1515:00 23:00 07:00 IntakeIntake Total 120 ml 100 ml 480 ml BalanceBalance 120 ml 100 ml 480 ml Exam PE: Gen Appearance: No Apparent Distress HEENT: Normocephalic Cardiovascular: Regular rate Abdomen: Soft Extremities: Dry NE: The patient was alert though nonverbal. Able to fix and follow. Able to follow simple appendicular commands. Pupils were equal and reactive to light. There was no afferent pupillary defect. Visual black were normal. Funduscopic examination was limited. Extra-ocular movements were full. Ptosis was absent. There was no nystagmus. Facial sensation was normal. Face was symmetric with normal strength. Hearing was intact. Palate movements were normal. Neck strength was normal. There was normal tongue bulk and speed of movement. Tone was normal. Muscle bulk was normal. I did not see fasciculations. Arms and legs were symmetric. Vibration sensation was normal. Temperature and pinprick sensation was normal. Rapid alternating movements were normal. There was no dysmetria. There was no intention tremor. Gait was deferred due to bedrest. Arm and leg reflexes were symmetric. Delgado's sign was absent. Plantar responses were flexor. TOMY ZACARIAS Sep 30, 2018 07:57 CHRIS JONES NP Sep 30, 2018 13:16
--- NOTE | 2018-09-30 08:20 | EEG ---
EEG NOTE Report Details DATE OF TEST: 09/29/18 HISTORY: The patient is a 78-year-old F who presents with altered mental status. This EEG is requested to evaluate for seizures. SEDATION: None. CONDITIONS OF RECORDING: This EEG was recorded digitally on the [employer] machine, using the International 10-20 System of electrodes plus anterior temporals and [place]. STATES SAMPLED: Wakefulness and drowsiness. FINDINGS: There is high frequency artifact anteriorly. During wakefulness, there is an 8 Hz posterior dominant rhythm. There is a normal [id number] frequency-amplitude gradient. The remainder of the awake background is normal. Photic stimulation does not elicit any definite driving responses or epileptiform discharges. Hyperventilation was not performed. The patient became drowsy but did not pass into sleep. No asymmetries, focal abnormalities or epileptiform discharges were seen. IMPRESSION: Normal electroencephalogram during wakefulness and drowsiness. TOMY ZACARIAS Sep 30, 2018 08:20
[2018-09-30] MEDS: FOLIC ACID 0.4 MG TAB PO SCH (08:48)
[2018-09-30] MEDS: AMLODIPINE 10 MG TAB PO SCH (08:49)
[2018-09-30] MEDS: LISINOPRIL 20 MG TAB PO SCH (08:49)
--- NOTE | 2018-09-30 12:34 | PN ---
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 Dr Kenney to reset [employer] shunt following study - Management per neurology Respiratory acidodisos with metabolic alkalosis - unclear etiology of metabolic alkalosis with respiratory acidosis, supportive care DMII: titrate basal/bolus insulin Hypokalemia - Replete electrolytes Hypertension: - Continue current meds Result Diagram: 09/30/18 0437 09/30/18 0437 Results 24hrs Laboratory Tests Test 09/29/18 13:26 09/29/18 17:07 09/30/18 01:54 09/30/18 04:37 Sodium Level 139 137 Potassium Level 4.0 3.7 Chloride Level 98 99 Carbon Dioxide Level 34 H 36 H Anion Gap 7 2 L Blood Urea Nitrogen 21 H 21 H Creatinine 0.46 0.44 Est Glomerular Filtrat Rate mL/min Glucose Level 242 #H 163 Calcium Level 9.9 9.5 Bedside Glucose 243 H 216 White Blood Count 7.3 Red Blood Count 4.45 Hemoglobin 12.3 Hematocrit 36.4 L Mean Corpuscular Volume 81.8 L Mean Corpuscular 27.6 L Hemoglobin Mean Corpuscular 33.8 Hemoglobin Concent Red Cell Distribution 13.8 Width Platelet Count 95 #L Mean Platelet Volume 12.8 H Immature Granulocytes % 1.100 H Neutrophils % 88.5 H Lymphocytes % 6.0 L Monocytes % 4.3 Eosinophils % 0.0 Basophils % 0.1 Nucleated Red Blood 0.0 Cells % Immature Granulocytes # 0.080 H Neutrophils # 6.5 Lymphocytes # 0.4 L Monocytes # 0.3 Eosinophils # 0.0 Basophils # 0.0 Nucleated Red Blood 0.0 Cells # Total Bilirubin 0.5 Direct Bilirubin 0.00 Indirect Bilirubin 0.5 Aspartate Amino 32 Transf (AST/SGOT) Alanine 38 Aminotransferase (ALT/SG PT) Alkaline Phosphatase 44 Total Protein 5.4 L Albumin 2.9 L Globulin 2.50 Albumin/Globulin Ratio 1.16 Test 09/30/18 07:43 09/30/18 11:56 Bedside Glucose 140 256 H Subjective 24 Hr Interval Summary Free Text/Dictation No change to clinical status Awaiting MRI Remains encephelopathic Exam/Review of Systems Exam Vitals Vital Signs Date Temp Pulse Resp B/P (MAP) Pulse Ox O2 O2 Flow FiO2 Time Delivery Rate 09/30/18 97.9 85 20 154/69 98 Room Air 11:11 (97) Intake and Output 09/29/18 09/29/18 09/30/18 1515:00 23:00 07:00 IntakeIntake Total 120 ml 100 ml 480 ml BalanceBalance 120 ml 100 ml 480 ml Results Results 24hrs Laboratory Tests Test 09/29/18 13:26 09/29/18 17:07 09/30/18 01:54 09/30/18 04:37 Sodium Level 139 137 Potassium Level 4.0 3.7 Chloride Level 98 99 Carbon Dioxide Level 34 H 36 H Anion Gap 7 2 L Blood Urea Nitrogen 21 H 21 H Creatinine 0.46 0.44 Est Glomerular Filtrat Rate mL/min Glucose Level 242 #H 163 Calcium Level 9.9 9.5 Bedside Glucose 243 H 216 White Blood Count 7.3 Red Blood Count 4.45 Hemoglobin 12.3 Hematocrit 36.4 L Mean Corpuscular Volume 81.8 L Mean Corpuscular 27.6 L Hemoglobin Mean Corpuscular 33.8 Hemoglobin Concent Red Cell Distribution 13.8 Width Platelet Count 95 #L Mean Platelet Volume 12.8 H Immature Granulocytes % 1.100 H Neutrophils % 88.5 H Lymphocytes % 6.0 L Monocytes % 4.3 Eosinophils % 0.0 Basophils % 0.1 Nucleated Red Blood 0.0 Cells % Immature Granulocytes # 0.080 H Neutrophils # 6.5 Lymphocytes # 0.4 L Monocytes # 0.3 Eosinophils # 0.0 Basophils # 0.0 Nucleated Red Blood 0.0 Cells # Total Bilirubin 0.5 Direct Bilirubin 0.00 Indirect Bilirubin 0.5 Aspartate Amino 32 Transf (AST/SGOT) Alanine 38 Aminotransferase (ALT/SG PT) Alkaline Phosphatase 44 Total Protein 5.4 L Albumin 2.9 L Globulin 2.50 Albumin/Globulin Ratio 1.16 Test 09/30/18 07:43 09/30/18 11:56 Bedside Glucose 140 256 H Medications Medication Current Medications Insulin Aspart (Novolog Insulin Pen) NOVOLOG *MILD* ALGORITHM WITH MEALS BEDTIME SC Last administered on 09/30/18 02:04; Admin Dose 1 UNIT; Start 09/27/18 at 08:00 Hydralazine HCl (Apresoline) 10 mg Q6H PRN IV ELEVATED BLOOD PRESSURE Last administered on 09/30/18 07:46; Admin Dose 10 MG; Start 09/27/18 at 04:30 Miscellaneous Information 1 ea NOTE XX ; Start 09/27/18 at 04:30 Glucose (Glutose) 15 gm Q15M PRN PO DECREASED GLUCOSE; Start 09/27/18 at 04:30 Glucose (Glutose) 22.5 gm Q15M PRN PO DECREASED GLUCOSE; Start 09/27/18 at 04:30 Dextrose (D50w Syringe) 25 ml Q15M PRN IV DECREASED GLUCOSE; Start 09/27/18 at 04:30 Dextrose (D50w Syringe) 50 ml Q15M PRN IV DECREASED GLUCOSE; Start 09/27/18 at 04:30 Glucagon (Glucagen) 1 mg Q15M PRN IM DECREASED GLUCOSE; Start 09/27/18 at 04:30 Glucose (Glutose) 15 gm Q15M PRN BUCCAL DECREASED GLUCOSE; Start 09/27/18 at 04:30 IV Flush (NS 3 ml) 3 ml PER PROTOCOL IV ; Start 09/27/18 at 06:30 Acetaminophen (Tylenol Tab) 650 mg Q6H PRN PO .PAIN 1-3 OR TEMP; Start 09/27/18 at 06:30 Amlodipine Besylate (Norvasc) 10 mg DAILY PO Last administered on 09/30/18 08:49; Admin Dose 10 MG; Start 09/27/18 at 09:00 Folic Acid (Folic Acid) 0.8 mg DAILY PO Last administered on 09/30/18 08:48; Admin Dose 0.8 MG; Start 09/27/18 at 09:00 Lisinopril (Zestril) 40 mg DAILY PO Last administered on 09/30/18 08:49; Admin Dose 40 MG; Start 09/28/18 at 09:00 Insulin Glargine (Lantus) 8 units DAILY@0800 SC Last administered on 4/5/19at 07:55; Admin Dose 8 UNITS; Start 09/28/18 at 11:00 Insulin Aspart (Novolog Insulin Pen) 4 unit WITH MEALS SC Last administered on 09/30/18at 12:19; Admin Dose 4 UNIT; Start 09/28/18 at 12:00 KARIE DAMIAN MD Sep 30, 2018 12:34
--- NOTE | 2018-09-30 13:57 | CONS ---
Assessment/Plan Assessment/Plan Hospital Course (Demo Recall) 78-year-old female with diet controlled type 2 DM, CVA, HTN and normal pressure hydrocephalus status post FISH SEINER shunt that was placed 08/2016 was brought in by daughter for further evaluation for inability to talk. As per the daughter the patient was her normal self approximately until late July when she started noticing that her mother was starting to tAt her baseline the patient walks with a walker, feeds herself, converses normally and has assistance with shower. Endocrine consulted for management of abnormal thyroid test results. Daughter denied any personal or family history of thyroid disease. Abnormal thyroid function test -given patient's clinical picture along with low TSH (but not suppressed) and low free T4, it is most likely due to nonthyroidal illness -very unlikely to be central hypothyroidism, but measurement of serum cortisol can be helpful as it would be elevated in critical illness and low (or inappropriately normal) in patients with true central hypothyroidism -check serum cortisol, total T4 and T3 Thank you for allowing the participation in Ms Rueda's care, will follow with you Consultation Date/Type/Reason Admit Date/Time Sep 27, 2018 at 03:41 Date/Time of Note DATE: 09/30/18 TIME: 13:42 Hx of Present Illness History obtained from daughter at bedside. 78-year-old female with diet controlled type 2 DM, CVA, HTN and normal pressure hydrocephalus status post FISH SEINER shunt that was placed 08/2016 was brought in by daughter for further evaluation for inability to talk. As per the daughter the patient was her normal self approximately until late July when she started noticing that her mother was starting to talk less and not move around as much and now a week prior she is completely nonverbal. She understands and is able to follow commands at bedside today and at home. At her baseline the patient walks with a walker, feeds herself, converses normally and has assistance with shower. Endocrine consulted for management of abnormal thyroid test results. Daughter denied any personal or family history of thyroid disease. unable to obtain due to clinical condition Subjective hx not possible: pt non-verbal Past Medical History Medical History: diabetes, hypertension, other (Normal pressure hydrocephalus) Home Meds Reported Medications Cyanocobalamin (Vitamin B12) Unknown Strength Tab, PO, TAB 09/27/18 Cholecalciferol (Vitamin D3) (Vitamin D3) 500 Unit/5 Ml Liquid, 2000 UNIT PO DAILY 09/27/18 Acetaminophen* (Acetaminophen*) 500 MG Extra Strength Tablet, 500 MG PO Q4H PRN for PAIN AND OR ELEVATED TEMP, TAB 09/27/18 Multivitamins* (Theragran*) 1 Tab Tab, 1 TAB PO DAILY, TAB 09/27/18 Folic Acid* (Folic Acid*) 0.8 Mg Tablet, 0.8 MG PO DAILY, TAB 09/27/18 Lisinopril* (Lisinopril*) 40 Mg Tablet, 40 MG PO DAILY, #30 TAB 09/27/18 Amlodipine Besylate* (Amlodipine Besylate*) 10 Mg Tablet, 10 MG PO DAILY, #30 TAB 09/27/18 Metformin Hcl* (Metformin Hcl*) 500 Mg Tablet, 500 MG PO DAILY, #30 TAB 03/07/17 Discontinued Reported Medications Olmesartan Medoxomil (Benicar) 40 Mg Tablet, 40 MG PO DAILY, #30 TAB 03/07/17 Medications Current Medications Insulin Aspart (Novolog Insulin Pen) NOVOLOG *MILD* ALGORITHM WITH MEALS BEDTIME SC Last administered on 09/30/18at 02:04; Admin Dose 1 UNIT; Start 09/27/18 at 08:00 Hydralazine HCl (Apresoline) 10 mg Q6H PRN IV ELEVATED BLOOD PRESSURE Last administered on 09/30/18at 07:46; Admin Dose 10 MG; Start 09/27/18 at 04:30 Miscellaneous Information 1 ea NOTE XX ; Start 09/27/18 at 04:30 Glucose (Glutose) 15 gm Q15M PRN PO DECREASED GLUCOSE; Start 09/27/18 at 04:30 Glucose (Glutose) 22.5 gm Q15M PRN PO DECREASED GLUCOSE; Start 09/27/18 at 04:30 Dextrose (D50w Syringe) 25 ml Q15M PRN IV DECREASED GLUCOSE; Start 09/27/18 at 04:30 Dextrose (D50w Syringe) 50 ml Q15M PRN IV DECREASED GLUCOSE; Start 09/27/18 at 04:30 Glucagon (Glucagen) 1 mg Q15M PRN IM DECREASED GLUCOSE; Start 09/27/18 at 04:30 Glucose (Glutose) 15 gm Q15M PRN BUCCAL DECREASED GLUCOSE; Start 09/27/18 at 04:30 IV Flush (NS 3 ml) 3 ml PER PROTOCOL IV ; Start 09/27/18 at 06:30 Acetaminophen (Tylenol Tab) 650 mg Q6H PRN PO .PAIN 1-3 OR TEMP; Start 09/27/18 at 06:30 Amlodipine Besylate (Norvasc) 10 mg DAILY PO Last administered on 09/30/18 08:49; Admin Dose 10 MG; Start 09/27/18 at 09:00 Folic Acid (Folic Acid) 0.8 mg DAILY PO Last administered on 09/30/18 08:48; Admin Dose 0.8 MG; Start 09/27/18 at 09:00 Lisinopril (Zestril) 40 mg DAILY PO Last administered on 09/30/18 08:49; Admin Dose 40 MG; Start 09/28/18 at 09:00 Insulin Glargine (Lantus) 8 units DAILY@0800 SC Last administered on 09/30/18 07:55; Admin Dose 8 UNITS; Start 09/28/18 at 11:00 Insulin Aspart (Novolog Insulin Pen) 4 unit WITH MEALS SC Last administered on 09/30/18 08:47; Admin Dose 4 UNIT; Start 09/28/18 at 12:00 Allergies: Coded Allergies: No Known Allergy (Unverified , 09/27/18) Past Surgical History Past Surgical Hx: other (hysterectomy 1991 for fibroids; FISH SEINER shunt placement 08/2016) Family History Significant Family History: no pertinent family hx Social History Alcohol Use: none Smoking Status: Never smoker Drug Use: marijuana Exam/Review of Systems Exam Vitals Vital Signs Date Temp Pulse Resp B/P (MAP) Pulse Ox O2 O2 Flow FiO2 Time Delivery Rate 09/30/18 91 18 168/71 09:29 (103) 09/30/18 97.6 97 Room Air 07:13 Intake and Output 09/29/18 09/29/18 09/30/18 1515:00 23:00 07:00 IntakeIntake Total 120 ml 100 ml 480 ml BalanceBalance 120 ml 100 ml 480 ml Exam General: Comfortable in appearance, not in acute distress. Skin appropriate for ethnicity Eye: Extraocular movements are intact, Normal conjunctiva. HENT: Normocephalic, atraumatic. Respiratory: Respirations are non-labored, Breath sounds are equal, Symmetrical chest wall expansion. Cardiovascular: S1, S2. No murmur. No LE edema Gastrointestinal: Soft, Non-distended, Normal bowel sounds. Integumentary: Warm to touch. Neurologic: Alert and awake, follows command but nonverbal Results Result Diagram: 09/30/18 0437 09/30/187 Results 24hrs Laboratory Tests Test 09/29/18 17:07 09/30/18 01:54 09/30/18 04:37 09/30/18 07:43 Bedside Glucose 243 H 216 140 White Blood Count 7.3 Red Blood Count 4.45 Hemoglobin 12.3 Hematocrit 36.4 L Mean Corpuscular Volume 81.8 L Mean Corpuscular 27.6 L Hemoglobin Mean Corpuscular 33.8 Hemoglobin Concent Red Cell Distribution 13.8 Width Platelet Count 95 #L Mean Platelet Volume 12.8 H Immature Granulocytes % 1.100 H Neutrophils % 88.5 H Lymphocytes % 6.0 L Monocytes % 4.3 Eosinophils % 0.0 Basophils % 0.1 Nucleated Red Blood 0.0 Cells % Immature Granulocytes # 0.080 H Neutrophils # 6.5 Lymphocytes # 0.4 L Monocytes # 0.3 Eosinophils # 0.0 Basophils # 0.0 Nucleated Red Blood 0.0 Cells # Sodium Level 137 Potassium Level 3.7 Chloride Level 99 Carbon Dioxide Level 36 H Anion Gap 2 L Blood Urea Nitrogen 21 H Creatinine 0.44 Est Glomerular Filtrat Rate mL/min Glucose Level 163 Calcium Level 9.5 Total Bilirubin 0.5 Direct Bilirubin 0.00 Indirect Bilirubin 0.5 Aspartate Amino 32 Transf (AST/SGOT) Alanine 38 Aminotransferase (ALT/SG PT) Alkaline Phosphatase 44 Total Protein 5.4 L Albumin 2.9 L Globulin 2.50 Albumin/Globulin Ratio 1.16 Test 09/30/18 11:56 Bedside Glucose 256 H Medications Medication Current Medications Insulin Aspart (Novolog Insulin Pen) NOVOLOG *MILD* ALGORITHM WITH MEALS BEDTIME SC Last administered on 09/30/18at 02:04; Admin Dose 1 UNIT; Start 09/27/18 at 08:00 Hydralazine HCl (Apresoline) 10 mg Q6H PRN IV ELEVATED BLOOD PRESSURE Last administered on 09/30/18at 07:46; Admin Dose 10 MG; Start 09/27/18 at 04:30 Miscellaneous Information 1 ea NOTE XX ; Start 09/27/18 at 04:30 Glucose (Glutose) 15 gm Q15M PRN PO DECREASED GLUCOSE; Start 09/27/18 at 04:30 Glucose (Glutose) 22.5 gm Q15M PRN PO DECREASED GLUCOSE; Start 09/27/18 at 04:30 Dextrose (D50w Syringe) 25 ml Q15M PRN IV DECREASED GLUCOSE; Start 09/27/18 at 04:30 Dextrose (D50w Syringe) 50 ml Q15M PRN IV DECREASED GLUCOSE; Start 09/27/18 at 04:30 Glucagon (Glucagen) 1 mg Q15M PRN IM DECREASED GLUCOSE; Start 09/27/18 at 04:30 Glucose (Glutose) 15 gm Q15M PRN BUCCAL DECREASED GLUCOSE; Start 09/27/18 at 04:30 IV Flush (NS 3 ml) 3 ml PER PROTOCOL IV ; Start 09/27/18 at 06:30 Acetaminophen (Tylenol Tab) 650 mg Q6H PRN PO .PAIN 1-3 OR TEMP; Start 09/27/18 at 06:30 Amlodipine Besylate (Norvasc) 10 mg DAILY PO Last administered on 09/30/18 08:49; Admin Dose 10 MG; Start 09/27/18 at 09:00 Folic Acid (Folic Acid) 0.8 mg DAILY PO Last administered on 09/30/18 08:48; Admin Dose 0.8 MG; Start 09/27/18 at 09:00 Lisinopril (Zestril) 40 mg DAILY PO Last administered on 09/30/18 08:49; Admin Dose 40 MG; Start 09/28/18 at 09:00 Insulin Glargine (Lantus) 8 units DAILY@0800 SC Last administered on 09/30/18 07:55; Admin Dose 8 UNITS; Start 09/28/18 at 11:00 Insulin Aspart (Novolog Insulin Pen) 4 unit WITH MEALS SC Last administered on 09/30/18 08:47; Admin Dose 4 UNIT; Start 09/28/18 at 12:00 SHIRLENE ANGEL MD Sep 30, 2018 13:54
[2018-09-30] MEDS ORDERED: INSULIN ASPART [NOVOLOG] 3 ML PEN SC ONE (21:00)
[2018-10-01] VITALS (13 sets, daily range): BP systolic 121–176; BP diastolic 68–82; PULSE 63–117; RESP 18–21
[2018-10-01] MEDS: INSULIN GLARGINE [LANTus] (100 UNITS/ML) SYG SC SCH (08:01)
[2018-10-01] MEDS: INSULIN ASPART [NOVOLOG] 3 ML PEN SC SCH ×7 (08:02→21:00)
[2018-10-01] MEDS: AMLODIPINE 10 MG TAB PO SCH (08:30)
[2018-10-01] MEDS: FOLIC ACID 0.4 MG TAB PO SCH (08:30)
[2018-10-01] MEDS: LISINOPRIL 20 MG TAB PO SCH (08:30)
[2018-10-01] MEDS: metFORMIN 500 MG TAB PO SCH ×2 (09:24→17:13)
[2018-10-01] MEDS: LINAGLIPTIN 5 MG TABLET PO SCH (09:25)
--- NOTE | 2018-10-01 09:52 | CONS ---
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 TSH, FT4, FT3, TT4, TT3 all low. This could be c/w central hypothyroidism but w/ cortisol significantly elevated this would be highly unlikely. No need for thyroid hormone treatment at this time. Rec. recheck TFT's in 6 weeks when pt. stable. (2) Type 2 diabetes mellitus with hyperglycemia Status: Chronic Comment: Glucose is OOC. Increasing lantus from 8 to 12 units this am is not likely to fix this. Will start Novolog 6 units qac and add metformin 500 mg bid and linagliptin 5 mg daily. Monitor glucose values and adjust meds accordingly. Consultation Date/Type/Reason Admit Date/Time Sep 27, 2018 at 03:41 Initial Consult Date 09/30/18 Type of Consult Endocrinology Reason for Consultation Abnormal thyroid function studies Requesting Provider: PATRICIA LEVINE Date/Time of Note DATE: 10/01/18 TIME: 09:48 24 HR Interval Summary Subjective hx not possible: pt non-verbal (daughter denies any other complaints) Exam/Review of Systems Exam Vitals VS - Last 72 Hours, by Label Date Temp Pulse Resp B/P (MAP) Pulse Ox O2 O2 Flow FiO2 Time Delivery Rate 10/01/18 63 08:01 10/01/18 98.1 68 19 176/79 96 07:21 (111) 10/01/18 66 04:00 10/01/18 98.2 81 18 157/73 98 03:48 (101) 10/01/18 98.3 19 159/68 96 01:07 (98) 10/01/18 81 00:00 09/30/18 151/70 22:52 (97) 09/30/18 80 20:00 09/30/18 98.3 88 18 174/74 93 19:34 (107) 09/30/18 78 16:00 09/30/18 98.1 80 20 154/68 97 Room Air 15:40 (96) 09/30/18 68 12:00 09/30/18 97.9 85 20 154/69 98 Room Air 11:11 (97) 09/30/18 91 18 168/71 09:29 (103) 09/30/18 81 08:00 09/30/18 97.6 78 20 193/88 97 Room Air 07:13 (123) 09/30/18 65 04:21 09/30/18 98.3 81 22 151/77 97 04:01 (101) 09/30/18 73 00:13 09/29/18 98.1 83 19 145/83 100 23:55 (103) 09/29/18 66 20:12 09/29/18 98.3 78 17 171/77 100 20:07 (108) 09/29/18 73 16:23 09/29/18 98.2 72 18 164/69 100 15:34 (100) 09/29/18 65 12:37 09/29/18 97.9 75 17 158/69 96 11:12 (98) 09/29/18 64 08:26 09/29/18 97.8 70 17 180/81 98 07:53 (114) 09/29/18 50 04:00 09/29/18 97.2 16 156/74 97 04:00 (101) 09/29/18 97.2 70 17 164/82 100 00:14 (109) 09/29/18 64 00:00 09/28/18 98.3 76 18 160/78 100 20:00 (105) 09/28/18 77 20:00 09/28/18 77 16:00 09/28/18 98.1 76 17 161/72 95 15:24 (101) 09/28/18 66 12:00 09/28/18 98.1 56 18 166/72 100 11:17 (103) Vital Signs Date Temp Pulse Resp B/P (MAP) Pulse Ox O2 O2 Flow FiO2 Time Delivery Rate 10/01/18 63 08:01 10/01/18 98.1 19 176/79 96 07:21 (111) 09/30/18 Room Air 15:40 Intake and Output 09/30/18 09/30/18 10/01/18 1515:00 23:00 07:00 IntakeIntake Total 720 ml 550 ml BalanceBalance 720 ml 550 ml Constitutional: alert, non-verbal (aphasic), frail Respiratory: clear to auscultation, normal air movement Cardiovascular: regular rate and rhythm, nl pulses; No edema, No murmurs/extra sounds, No rub Gastrointestinal: soft, nl liver, spleen, non-tender, bowel sounds; No mass, No rebound or guarding Musculoskeletal: nl extremities to inspection Extremities: normal pulses; No cyanosis, No clubbing, No edema 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: [employer] II-XII intact, nl mental status, nl strength; No nl speech Additional Comments Bedside Glucose - 72 Hours Test 09/28/18 12:07 09/28/18 17:28 09/28/18 20:57 09/29/18 02:45 Bedside 277 221 238 139 Glucose mg/dL (70-220) mg/dL (70-220) mg/dL (70-220) mg/dL (70-220) H H H Test 09/29/18 07:47 09/29/18 12:11 09/29/18 17:07 09/30/18 01:54 Bedside 136 264 243 216 Glucose mg/dL (70-220) mg/dL (70-220) mg/dL (70-220) mg/dL (70-220) H H Test 09/30/18 07:43 09/30/18 11:56 09/30/18 17:30 09/30/18 20:23 Bedside 140 256 269 380 Glucose mg/dL (70-220) mg/dL (70-220) mg/dL (70-220) mg/dL (70-220) H H H Test 10/01/18 02:00 10/01/18 07:27 Bedside 248 179 Glucose mg/dL (70-220) mg/dL (70-220) H Results Result Diagram: 10/01/18 0538 10/01/18 0538 Results 24hrs Laboratory Tests Test 09/30/18 11:56 09/30/18 17:30 09/30/18 20:23 10/01/18 02:00 Bedside Glucose 256 H 269 H 380 H 248 H Test 10/01/18 05:38 10/01/18 07:27 White Blood Count 6.7 Red Blood Count 4.26 Hemoglobin 11.7 L Hematocrit 34.9 L Mean Corpuscular Volume 81.9 L Mean Corpuscular 27.5 L Hemoglobin Mean Corpuscular 33.5 Hemoglobin Concent Red Cell Distribution 13.8 Width Platelet Count 113 L Mean Platelet Volume 11.4 H Immature Granulocytes % 1.300 H Neutrophils % 88.3 H Lymphocytes % 5.1 L Monocytes % 5.2 Eosinophils % 0.0 Basophils % 0.1 Nucleated Red Blood 0.0 Cells % Immature Granulocytes # 0.090 H Neutrophils # 5.9 Lymphocytes # 0.3 L Monocytes # 0.4 Eosinophils # 0.0 Basophils # 0.0 Nucleated Red Blood 0.0 Cells # Sodium Level 139 Potassium Level 3.1 L Chloride Level 100 Carbon Dioxide Level 38 H Anion Gap 1 L Blood Urea Nitrogen 22 H Creatinine 0.58 Est Glomerular Filtrat Rate mL/min Glucose Level 183 Calcium Level 9.6 Total Bilirubin 0.4 Direct Bilirubin 0.00 Indirect Bilirubin 0.4 Aspartate Amino 22 Transf (AST/SGOT) Alanine 39 Aminotransferase (ALT/SG PT) Alkaline Phosphatase 67 # Total Protein 4.9 L Albumin 2.7 L Globulin 2.20 Albumin/Globulin Ratio 1.22 Thyroxine (T4) 2.7 L Total Triiodothyronine 0.42 L Random Cortisol 75.5 Bedside Glucose 179 Medications Medication Current Medications Insulin Aspart (Novolog Insulin Pen) NOVOLOG *MILD* ALGORITHM WITH MEALS BED TIME SC Last administered on 10/01/18at 08:02; Admin Dose 1 UNIT; Start 09/27/18 at 08:00 Hydralazine HCl (Apresoline) 10 mg Q6H PRN IV ELEVATED BLOOD PRESSURE Last administered on 09/30/18at 20:36; Admin Dose 10 MG; Start 09/27/18 at 04:30 Miscellaneous Information 1 ea NOTE XX ; Start 09/27/18 at 04:30 Glucose (Glutose) 15 gm Q15M PRN PO DECREASED GLUCOSE; Start 09/27/18 at 04:30 Glucose (Glutose) 22.5 gm Q15M PRN PO DECREASED GLUCOSE; Start 09/27/18 at 04:30 Dextrose (D50w Syringe) 25 ml Q15M PRN IV DECREASED GLUCOSE; Start 09/27/18 at 04:30 Dextrose (D50w Syringe) 50 ml Q15M PRN IV DECREASED GLUCOSE; Start 09/27/18 at 04:30 Glucagon (Glucagen) 1 mg Q15M PRN IM DECREASED GLUCOSE; Start 09/27/18 at 04:30 Glucose (Glutose) 15 gm Q15M PRN BUCCAL DECREASED GLUCOSE; Start 09/27/18 at 04:30 IV Flush (NS 3 ml) 3 ml PER PROTOCOL IV ; Start 09/27/18 at 06:30 Acetaminophen (Tylenol Tab) 650 mg Q6H PRN PO .PAIN 1-3 OR TEMP; Start 09/27/18 at 06:30 Amlodipine Besylate (Norvasc) 10 mg DAILY PO Last administered on 10/01/18 08:30; Admin Dose 10 MG; Start 09/27/18 at 09:00 Folic Acid (Folic Acid) 0.8 mg DAILY PO Last administered on 10/01/18 08:30; Admin Dose 0.8 MG; Start 09/27/18 at 09:00 Lisinopril (Zestril) 40 mg DAILY PO Last administered on 10/01/18 08:30; Admin Dose 40 MG; Start 09/28/18 at 09:00 Insulin Glargine (Lantus) 12 units DAILY@0800 SC Last administered on 10/01/18 08:01; Admin Dose 12 UNITS; Start 10/01/18 at 08:00 Insulin Aspart (Novolog Insulin Pen) 6 unit WITH MEALS SC ; Start 10/01/18 at 12:00 Metformin HCl (Glucophage) 500 mg BID WITH MEALS PO Last administered on 10/01 09:24; Admin Dose 500 MG; Start 10/01/18 at 08:30 Linagliptin (Tradjenta) 5 mg DAILY PO Last administered on 10/01/18 09:25; Admin Dose 5 MG; Start 10/01/18 at 09:00 HECTOR DOTSON MD Oct 01, 2018 09:52
--- NOTE | 2018-10-01 11:01 | CONS ---
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 The clinical picture could be consistent w/ an acute on chronic encephalopathy. Stroke is not yet excluded. Focal motor seizure was additionally considered; however, EEG was normal.. Head CT is without obvious acute intracranial pathology. TSH, FT4, and FT3 are low..of uncertain significance P: Appreciate endocrinology recs; await cortisol and adnl hormone levels as ordered.. Await MRI brain for further characterization [place] as necessary Limit sedating medications where possible PT/OT/ST as necessary Other medical management and supportive care per primary Will follow clinically Consultation Date/Type/Reason Admit Date/Time Sep 27, 2018 at 03:41 Type of Consult Neurology Reason for Consultation ams Requesting Provider: PATRICIA LEVINE Date/Time of Note DATE: 10/01/18 TIME: 10:59 24 HR Interval Summary Free Text/Dictation remains nonverbal Exam Vital Signs Vitals Vital Signs Date Temp Pulse Resp B/P (MAP) Pulse Ox O2 O2 Flow FiO2 Time Delivery Rate 10/01/18 63 08:01 10/01/18 98.1 19 176/79 96 07:21 (111) 09/30/18 Room Air 15:40 Intake and Output 09/30/18 09/30/18 10/01/18 1515:00 23:00 07:00 IntakeIntake Total 720 ml 550 ml BalanceBalance 720 ml 550 ml Exam PE: Gen Appearance: No Apparent Distress HEENT: Normocephalic Cardiovascular: Regular rate Abdomen: Soft Extremities: Dry NE: The patient was alert though nonverbal..able to follow commands.. Pupils were equal and reactive to light. There was no afferent pupillary defect. Visual black were normal. Funduscopic examination was limited. Extra-ocular movements were full. Ptosis was absent. There was no nystagmus. Facial sensation was normal. Face was symmetric with normal strength. Hearing was intact. Palate movements were normal. Neck strength was normal. There was normal tongue bulk and speed of movement. Tone was normal. Muscle bulk was normal. I did not see fasciculations. Arms and legs were symmetric. Vibration sensation was normal. Temperature and pinprick sensation was normal. Rapid alternating movements were normal. There was no dysmetria. There was no intention tremor. Gait was deferred due to bedrest. Arm and leg reflexes were symmetric. Delgado's sign was absent. Plantar responses were flexor. TOMY ZACARIAS Oct 01, 2018 11:01
[2018-10-01] MEDS ORDERED: POTASSIUM CHLORIDE 20 MEQ POWDER FOR ORAL SOLN PO ONE ×2 (13:00→17:00)
[2018-10-01] MEDS: BALSAM PERU/CASTOR OIL 60 GM TUBE TOP SCH ×2 (14:24→21:11)
--- NOTE | 2018-10-01 16:37 | PN ---
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 Dr Kenney to reset ELECTRONIC WARFARE LINGUIST shunt following study - Management per neurology Respiratory acidodisos with metabolic alkalosis - unclear etiology of metabolic alkalosis with respiratory acidosis, supportive care DMII: titrate basal/bolus insulin Hypokalemia - Replete electrolytes Hypertension: - Continue current meds Result Diagram: 10/01/18 0538 10/01/18 0538 Results 24hrs Laboratory Tests Test 09/30/18 17:30 09/30/18 20:23 10/01/18 02:00 10/01/18 05:38 Bedside Glucose 269 H 380 H 248 H White Blood Count 6.7 Red Blood Count 4.26 Hemoglobin 11.7 L Hematocrit 34.9 L Mean Corpuscular Volume 81.9 L Mean Corpuscular 27.5 L Hemoglobin Mean Corpuscular 33.5 Hemoglobin Concent Red Cell Distribution 13.8 Width Platelet Count 113 L Mean Platelet Volume 11.4 H Immature Granulocytes % 1.300 H Neutrophils % 88.3 H Lymphocytes % 5.1 L Monocytes % 5.2 Eosinophils % 0.0 Basophils % 0.1 Nucleated Red Blood 0.0 Cells % Immature Granulocytes # 0.090 H Neutrophils # 5.9 Lymphocytes # 0.3 L Monocytes # 0.4 Eosinophils # 0.0 Basophils # 0.0 Nucleated Red Blood 0.0 Cells # Sodium Level 139 Potassium Level 3.1 L Chloride Level 100 Carbon Dioxide Level 38 H Anion Gap 1 L Blood Urea Nitrogen 22 H Creatinine 0.58 Est Glomerular Filtrat Rate mL/min Glucose Level 183 Calcium Level 9.6 Total Bilirubin 0.4 Direct Bilirubin 0.00 Indirect Bilirubin 0.4 Aspartate Amino 22 Transf (AST/SGOT) Alanine 39 Aminotransferase (ALT/SG PT) Alkaline Phosphatase 67 # Total Protein 4.9 L Albumin 2.7 L Globulin 2.20 Albumin/Globulin Ratio 1.22 Thyroxine (T4) 2.7 L Total Triiodothyronine 0.42 L Random Cortisol 75.5 Test 10/01/18 07:27 10/01/18 11:49 Bedside Glucose 179 248 H Subjective 24 Hr Interval Summary Free Text/Dictation No change to clinical status Awaiting MRI Exam/Review of Systems Exam Vitals Vital Signs Date Temp Pulse Resp B/P (MAP) Pulse Ox O2 O2 Flow FiO2 Time Delivery Rate 10/01/18 97.8 117 19 121/77 98 15:21 (92) 09/30/18 Room Air 15:40 Intake and Output 09/30/18 09/30/18 10/01/18 1414:59 22:59 06:59 IntakeIntake Total 720 ml 550 ml BalanceBalance 720 ml 550 ml Results Results 24hrs Laboratory Tests Test 09/30/18 17:30 09/30/18 20:23 10/01/18 02:00 10/01/18 05:38 Bedside Glucose 269 H 380 H 248 H White Blood Count 6.7 Red Blood Count 4.26 Hemoglobin 11.7 L Hematocrit 34.9 L Mean Corpuscular Volume 81.9 L Mean Corpuscular 27.5 L Hemoglobin Mean Corpuscular 33.5 Hemoglobin Concent Red Cell Distribution 13.8 Width Platelet Count 113 L Mean Platelet Volume 11.4 H Immature Granulocytes % 1.300 H Neutrophils % 88.3 H Lymphocytes % 5.1 L Monocytes % 5.2 Eosinophils % 0.0 Basophils % 0.1 Nucleated Red Blood 0.0 Cells % Immature Granulocytes # 0.090 H Neutrophils # 5.9 Lymphocytes # 0.3 L Monocytes # 0.4 Eosinophils # 0.0 Basophils # 0.0 Nucleated Red Blood 0.0 Cells # Sodium Level 139 Potassium Level 3.1 L Chloride Level 100 Carbon Dioxide Level 38 H Anion Gap 1 L Blood Urea Nitrogen 22 H Creatinine 0.58 Est Glomerular Filtrat Rate mL/min Glucose Level 183 Calcium Level 9.6 Total Bilirubin 0.4 Direct Bilirubin 0.00 Indirect Bilirubin 0.4 Aspartate Amino 22 Transf (AST/SGOT) Alanine 39 Aminotransferase (ALT/SG PT) Alkaline Phosphatase 67 # Total Protein 4.9 L Albumin 2.7 L Globulin 2.20 Albumin/Globulin Ratio 1.22 Thyroxine (T4) 2.7 L Total Triiodothyronine 0.42 L Random Cortisol 75.5 Test 10/01/18 07:27 10/01/18 11:49 Bedside Glucose 179 248 H Medications Medication Current Medications Insulin Aspart (Novolog Insulin Pen) NOVOLOG *MILD* ALGORITHM WITH MEALS BEDTIME SC Last administered on 10/01/18 11:56; Admin Dose 3 UNIT; Start 09/27/18 at 08:00 Hydralazine HCl (Apresoline) 10 mg Q6H PRN IV ELEVATED BLOOD PRESSURE Last administered on 09/30/18at 20:36; Admin Dose 10 MG; Start 09/27/18 at 04:30 Miscellaneous Information 1 ea NOTE XX ; Start 09/27/18 at 04:30 Glucose (Glutose) 15 gm Q15M PRN PO DECREASED GLUCOSE; Start 09/27/18 at 04:30 Glucose (Glutose) 22.5 gm Q15M PRN PO DECREASED GLUCOSE; Start 09/27/18 at 04:30 Dextrose (D50w Syringe) 25 ml Q15M PRN IV DECREASED GLUCOSE; Start 09/27/18 at 04:30 Dextrose (D50w Syringe) 50 ml Q15M PRN IV DECREASED GLUCOSE; Start 09/27/18 at 04:30 Glucagon (Glucagen) 1 mg Q15M PRN IM DECREASED GLUCOSE; Start 09/27/18 at 04:30 Glucose (Glutose) 15 gm Q15M PRN BUCCAL DECREASED GLUCOSE; Start 09/27/18 at 04 :30 IV Flush (NS 3 ml) 3 ml PER PROTOCOL IV ; Start 09/27/18 at 06:30 Acetaminophen (Tylenol Tab) 650 mg Q6H PRN PO .PAIN 1-3 OR TEMP; Start 09/27/18 at 06:30 Amlodipine Besylate (Norvasc) 10 mg DAILY PO Last administered on 10/01/18at 08:30; Admin Dose 10 MG; Start 09/27/18 at 09:00 Folic Acid (Folic Acid) 0.8 mg DAILY PO Last administered on 10/01/18 08:30; Admin Dose 0.8 MG; Start 09/27/18 at 09:00 Lisinopril (Zestril) 40 mg DAILY PO Last administered on 10/01/18 08:30; Admin Dose 40 MG; Start 09/28/18 at 09:00 Insulin Glargine (Lantus) 12 units DAILY@0800 SC Last administered on 10/01/18at 08:01; Admin Dose 12 UNITS; Start 10/01/18 at 08:00 Insulin Aspart (Novolog Insulin Pen) 6 unit WITH MEALS SC Last administered on 10/01/18at 11:56; Admin Dose 6 UNIT; Start 10/01/18 at 12:00 Metformin HCl (Glucophage) 500 mg BID WITH MEALS PO Last administered on 10/01/18at 09:24; Admin Dose 500 MG; Start 10/01/18 at 08:30 Linagliptin (Tradjenta) 5 mg DAILY PO Last administered on 10/01/18at 09:25; Admi n Dose 5 MG; Start 10/01/18 at 09:00 Potassium Chloride (Potassium Chloride Pwd/Soln) 40 meq ONCE ONCE PO ; Start 10/01/18 at 17:00; Stop 10/01/18 at 17:01 KARIE DAMIAN MD Oct 01, 2018 16:37
[2018-10-02] VITALS (12 sets, daily range): BP systolic 157–168; BP diastolic 72–79; PULSE 71–90; RESP 17–21
[2018-10-02] MEDS: FOLIC ACID 0.4 MG TAB PO SCH (07:30)
[2018-10-02] MEDS: LINAGLIPTIN 5 MG TABLET PO SCH (07:30)
[2018-10-02] MEDS: AMLODIPINE 10 MG TAB PO SCH (07:30)
[2018-10-02] MEDS: metFORMIN 500 MG TAB PO SCH ×2 (07:30→16:50)
[2018-10-02] MEDS: BALSAM PERU/CASTOR OIL 60 GM TUBE TOP SCH ×2 (07:31→20:53)
[2018-10-02] MEDS: LISINOPRIL 20 MG TAB PO SCH (07:31)
[2018-10-02] MEDS: INSULIN ASPART [NOVOLOG] 3 ML PEN SC SCH ×7 (07:43→20:53)
[2018-10-02] MEDS: INSULIN GLARGINE [LANTus] (100 UNITS/ML) SYG SC SCH (07:43)
--- NOTE | 2018-10-02 11:43 | PN ---
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 Dr Kenney to reset BEATING MACHINE OPERATOR shunt following study - Management per neurology Respiratory acidodisos with metabolic alkalosis - unclear etiology of metabolic alkalosis with respiratory acidosis, supportive care DMII: titrate basal/bolus insulin Hypokalemia - Replete electrolytes Hypertension: - Continue current meds Result Diagram: 10/01/1838 10/01/18537 Results 24hrs Laboratory Tests Test 10/01/18 11:49 10/01/18 16:47 10/01/18 21:08 10/02/18 07:26 Bedside Glucose 248 H 200 114 153 Subjective 24 Hr Interval Summary Free Text/Dictation No change to clinical status Awaiting MRI Exam/Review of Systems Exam Vitals Vital Signs Date Temp Pulse Resp B/P (MAP) Pulse Ox O2 O2 Flow FiO2 Time Delivery Rate 10/02/18 98.1 89 18 168/77 99 11:27 (107) 09/30/18 Room Air 15:40 Intake and Output 10/01/18 10/01/18 10/02/18 1515:00 23:00 07:00 IntakeIntake Total 400 ml BalanceBalance 400 ml Results Results 24hrs Laboratory Tests Test 10/01/18 11:49 10/01/18 16:47 10/01/18 21:08 10/02/18 07:26 Bedside Glucose 248 H 200 114 153 Medications Medication Current Medications Insulin Aspart (Novolog Insulin Pen) NOVOLOG *MILD* ALGORITHM WITH MEALS BEDTIME SC Last administered on 10/02/18at 07:44; Admin Dose 1 UNIT; Start 09/27/18 at 08:00 Hydralazine HCl (Apresoline) 10 mg Q6H PRN IV ELEVATED BLOOD PRESSURE Last administered on 09/30/18at 20:36; Admin Dose 10 MG; Start 09/27/18 at 04:30 Miscellaneous Information 1 ea NOTE XX ; Start 09/27/18 at 04:30 Glucose (Glutose) 15 gm Q15M PRN PO DECREASED GLUCOSE; Start 09/27/18 at 04:30 Glucose (Glutose) 22.5 gm Q15M PRN PO DECREASED GLUCOSE; Start 09/27/18 at 04:30 Dextrose (D50w Syringe) 25 ml Q15M PRN IV DECREASED GLUCOSE; Start 09/27/18 at 04:30 Dextrose (D50w Syringe) 50 ml Q15M PRN IV DECREASED GLUCOSE; Start 09/27/18 at 04:30 Glucagon (Glucagen) 1 mg Q15M PRN IM DECREASED GLUCOSE; Start 09/27/18 at 04:30 Glucose (Glutose) 15 gm Q15M PRN BUCCAL DECREASED GLUCOSE; Start 09/27/18 at 04 :30 IV Flush (NS 3 ml) 3 ml PER PROTOCOL IV ; Start 09/27/18 at 06:30 Acetaminophen (Tylenol Tab) 650 mg Q6H PRN PO .PAIN 1-3 OR TEMP; Start 09/27/18 at 06:30 Amlodipine Besylate (Norvasc) 10 mg DAILY PO Last administered on 10/02/18at 07:30; Admin Dose 10 MG; Start 09/27/18 at 09:00 Folic Acid (Folic Acid) 0.8 mg DAILY PO Last administered on 10/02/18 07:30; Admin Dose 0.8 MG; Start 09/27/18 at 09:00 Lisinopril (Zestril) 40 mg DAILY PO Last administered on 10/02/18at 07:31; Admin Dose 40 MG; Start 09/28/18 at 09:00 Insulin Glargine (Lantus) 12 units DAILY@0800 SC Last administered on 10/02/18 07:43; Admin Dose 12 UNITS; Start 10/01/18 at 08:00 Insulin Aspart (Novolog Insulin Pen) 6 unit WITH MEALS SC Last administered on 10/02/18 07:43; Admin Dose 6 UNIT; Start 10/01/18 at 12:00 Metformin HCl (Glucophage) 500 mg BID WITH MEALS PO Last administered on 10/02/18at 07:30; Admin Dose 500 MG; Start 10/01/18 at 08:30 Linagliptin (Tradjenta) 5 mg DAILY PO Last administered on 10/02/18at 07:30; Admi n Dose 5 MG; Start 10/01/18 at 09:00 KARIE DAMIAN MD Oct 02, 2018 11:43
--- NOTE | 2018-10-02 12:05 | CONS ---
Assessment/Plan Assessment/Plan Problems: (1) Type 2 diabetes mellitus with hyperglycemia Status: Chronic Comment: Control markedly improved. Cont. current regimen. (2) Abnormal results of thyroid function studies Status: Acute Comment: C/w sick euthyroid syndrome as previously stated. See previous note. Consultation Date/Type/Reason Admit Date/Time Sep 27, 2018 at 03:41 Initial Consult Date 09/30/18 Type of Consult Endocrinology Reason for Consultation Abnormal thyroid function studies Requesting Provider: PATRICIA LEVINE Date/Time of Note DATE: 10/02/18 TIME: 12:03 24 HR Interval Summary Subjective hx not possible: pt non-verbal Exam/Review of Systems Exam Vitals VS - Last 72 Hours, by Label Date Temp Pulse Resp B/P (MAP) Pulse Ox O2 O2 Flow FiO2 Time Delivery Rate 10/02/18 98.1 89 18 168/77 99 11:27 (107) 10/02/18 71 08:01 10/02/18 98.0 84 18 157/74 95 07:11 (101) 10/02/18 78 04:00 10/02/18 98.4 87 21 163/72 93 03:51 (102) 10/02/18 86 00:00 10/01/18 98.1 93 21 151/77 99 23:32 (101) 10/01/18 78 20:00 10/01/18 97.7 93 19 152/74 99 19:36 (100) 10/01/18 96 16:01 10/01/18 97.8 117 19 121/77 98 15:21 (92) 10/01/18 93 12:01 10/01/18 98.1 84 19 123/82 95 11:51 (96) 10/01/18 63 08:01 10/01/18 98.1 68 19 176/79 96 07:21 (111) 10/01/18 66 04:00 10/01/18 98.2 81 18 157/73 98 03:48 (101) 10/01/18 98.3 19 159/68 96 01:07 (98) 10/01/18 81 00:00 09/30/18 151/70 22:52 (97) 09/30/18 80 20:00 09/30/18 98.3 88 18 174/74 93 19:34 (107) 09/30/18 78 16:00 09/30/18 98.1 80 20 154/68 97 Room Air 15:40 (96) 09/30/18 68 12:00 09/30/18 97.9 85 20 154/69 98 Room Air 11:11 (97) 09/30/18 91 18 168/71 09:29 (103) 09/30/18 81 08:00 09/30/18 97.6 78 20 193/88 97 Room Air 07:13 (123) 09/30/18 65 04:21 09/30/18 98.3 81 22 151/77 97 04:01 (101) 09/30/18 73 00:13 09/29/18 98.1 83 19 145/83 100 23:55 (103) 09/29/18 66 20:12 09/29/18 98.3 78 17 171/77 100 20:07 (108) 09/29/18 73 16:23 09/29/18 98.2 72 18 164/69 100 15:34 (100) 09/29/18 65 12:37 Vital Signs Date Temp Pulse Resp B/P (MAP) Pulse Ox O2 O2 Flow FiO2 Time Delivery Rate 10/02/18 98.1 89 18 168/77 99 11:27 (107) 09/30/18 Room Air 15:40 Intake and Output 10/01/18 10/01/18 10/02/18 1515:00 23:00 07:00 IntakeIntake Total 400 ml BalanceBalance 400 ml Constitutional: alert, non-verbal, frail Respiratory: clear to auscultation, normal air movement Cardiovascular: regular rate and rhythm, nl pulses; No edema, No murmurs/extra sounds, No rub Gastrointestinal: soft, nl liver, spleen, non-tender, bowel sounds; No mass, No rebound or guarding Musculoskeletal: nl extremities to inspection Extremities: normal pulses; No cyanosis, No clubbing, No edema 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: ELECTRIC MOTOR TESTER ASSEMBLER II-XII intact, nl mental status, nl strength; No nl speech Additional Comments Bedside Glucose - 72 Hours Test 09/29/18 12:11 09/29/18 17:07 09/30/18 01:54 09/30/18 07:43 Bedside 264 243 216 140 Glucose mg/dL (70-220) mg/dL (70-220) mg/dL (70-220) mg/dL (70-220) H H Test 09/30/18 11:56 09/30/18 17:30 09/30/18 20:23 10/01/18 02:00 Bedside 256 269 380 248 Glucose mg/dL (70-220) mg/dL (70-220) mg/dL (70-220) mg/dL (70-220) H H H H Test 10/01/18 07:27 10/01/18 11:49 10/01/18 16:47 10/01/18 21:08 Bedside 179 248 200 114 Glucose mg/dL (70-220) mg/dL (70-220) mg/dL (70-220) mg/dL (70-220) H Test 10/02/18 07:26 10/02/18 11:42 Bedside 153 132 Glucose mg/dL (70-220) mg/dL (70-220) Results Result Diagram: 10/01/18 0538 10/01/18 0538 Results 24hrs Laboratory Tests Test 10/01/18 16:47 10/01/18 21:08 10/02/18 07:26 10/02/18 11:42 Bedside Glucose 200 114 153 132 Medications Medication Current Medications Insulin Aspart (Novolog Insulin Pen) NOVOLOG *MILD* ALGORITHM WITH MEALS BEDTIME SC Last administered on 10/02/18at 07:44; Admin Dose 1 UNIT; Start 09/27/18 at 08:00 Hydralazine HCl (Apresoline) 10 mg Q6H PRN IV ELEVATED BLOOD PRESSURE Last administered on 09/30/18at 20:36; Admin Dose 10 MG; Start 09/27/18 at 04:30 Miscellaneous Information 1 ea NOTE XX ; Start 09/27/18 at 04:30 Glucose (Glutose) 15 gm Q15M PRN PO DECREASED GLUCOSE; Start 09/27/18 at 04:30 Glucose (Glutose) 22.5 gm Q15M PRN PO DECREASED GLUCOSE; Start 09/27/18 at 04:30 Dextrose (D50w Syringe) 25 ml Q15M PRN IV DECREASED GLUCOSE; Start 09/27/18 at 04:30 Dextrose (D50w Syringe) 50 ml Q15M PRN IV DECREASED GLUCOSE; Start 09/27/18 at 04:30 Glucagon (Glucagen) 1 mg Q15M PRN IM DECREASED GLUCOSE; Start 09/27/18 at 04:30 Glucose (Glutose) 15 gm Q15M PRN BUCCAL DECREASED GLUCOSE; Start 09/27/18 at 04:30 IV Flush (NS 3 ml) 3 ml PER PROTOCOL IV ; Start 09/27/18 at 06:30 Acetaminophen (Tylenol Tab) 650 mg Q6H PRN PO .PAIN 1-3 OR TEMP; Start 09/27/18 at 06:30 Amlodipine Besylate (Norvasc) 10 mg DAILY PO Last administered on 10/02/18 07:30; Admin Dose 10 MG; Start 09/27/18 at 09:00 Folic Acid (Folic Acid) 0.8 mg DAILY PO Last administered on 10/02/18 07:30; Admin Dose 0.8 MG; Start 09/27/18 at 09:00 Lisinopril (Zestril) 40 mg DAILY PO Last administered on 10/02/18 07:31; Admin Dose 40 MG; Start 09/28/18 at 09:00 Insulin Glargine (Lantus) 12 units DAILY@0800 SC Last administered on 10/02/18 07:43; Admin Dose 12 UNITS; Start 10/01/18 at 08:00 Insulin Aspart (Novolog Insulin Pen) 6 unit WITH MEALS SC Last administered on 10/02/18 07:43; Admin Dose 6 UNIT; Start 10/01/18 at 12:00 Metformin HCl (Glucophage) 500 mg BID WITH MEALS PO Last administered on 10/02/18 07:30; Admin Dose 500 MG; Start 10/01/18 at 08:30 Linagliptin (Tradjenta) 5 mg DAILY PO Last administered on 10/02/18 07:30; Admin Dose 5 MG; Start 10/01/18 at 09:00 HECTOR DOTSON MD Oct 02, 2018 12:05
--- NOTE | 2018-10-02 17:56 | QN ---
Documentation Comment PROCEDURE: Shunt valve reprogramming to performance level 140 mmHg INDICATION: Patient with Codman Hakim valve s/p MRI PROCEDURE WATER PUMPER: Hung Barber PROCEDURE SUMMARY: A lateral skull Xray demonstrated that the patient's STEEL WORKER shunt valve was changed to a performance level of 150mmHg after MRI. The shunt game programmer was used to adjust the shunt to 140mmHg without difficulty and was confirmed to be accurate. HUNG BARBER MD Oct 02, 2018 17:56
[2018-10-03] VITALS (11 sets, daily range): BP systolic 159–181; BP diastolic 73–88; PULSE 61–94; RESP 16–19
[2018-10-03] MEDS: INSULIN ASPART [NOVOLOG] 3 ML PEN SC SCH ×7 (08:00→21:00)
[2018-10-03] MEDS: FOLIC ACID 0.4 MG TAB PO SCH (08:20)
[2018-10-03] MEDS: LINAGLIPTIN 5 MG TABLET PO SCH (08:21)
[2018-10-03] MEDS: metFORMIN 500 MG TAB PO SCH ×2 (08:21→17:59)
[2018-10-03] MEDS: LISINOPRIL 20 MG TAB PO SCH (08:22)
[2018-10-03] MEDS: AMLODIPINE 10 MG TAB PO SCH (08:22)
[2018-10-03] MEDS: BALSAM PERU/CASTOR OIL 60 GM TUBE TOP SCH ×2 (08:22→21:03)
--- NOTE | 2018-10-03 12:36 | CONS ---
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 The clinical picture could be consistent w/ an acute on chronic encephalopathy. Stroke is not yet excluded. Focal motor seizure was additionally considered; however, EEG was normal.. Head CT is without obvious acute intracranial pathology. TSH, FT4, and FT3 are low..of uncertain significance P: Appreciate endocrinology recs; await cortisol and adnl hormone levels as ordered.. Await MRI brain for further characterization [place] as necessary Limit sedating medications where possible PT/OT/ST as necessary Other medical management and supportive care per primary Will follow clinically Consultation Date/Type/Reason Admit Date/Time Sep 27, 2018 at 03:41 Type of Consult Neurology Requesting Provider: PATRICIA LEVINE Date/Time of Note DATE: 10/03/18 TIME: 12:35 Exam Vital Signs Vitals Vital Signs Date Temp Pulse Resp B/P (MAP) Pulse Ox O2 O2 Flow FiO2 Time Delivery Rate 10/03/18 97.6 74 18 180/74 97 11:57 (109) 09/30/18 Room Air 15:40 Intake and Output 10/02/18 10/02/18 10/03/18 1515:00 23:00 07:00 IntakeIntake Total 900 ml 350 ml BalanceBalance 900 ml 350 ml CHRIS JONES SCIENCE WRITER Oct 03, 2018 12:35
[2018-10-03] MEDS: INSULIN GLARGINE [LANTus] (100 UNITS/ML) SYG SC SCH (12:52)
--- NOTE | 2018-10-03 13:31 | CONS ---
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 The clinical picture could be consistent w/ an acute on chronic encephalopathy. MRI brain is without evidence of acute intracranial pathology. Focal motor seizure was additionally considered; however, EEG was normal.. TSH, FT4, and FT3 are low....c/w sick euthyroid syndrome. P: [place] as necessary Limit sedating medications where possible PT/OT/ST as necessary Other medical management and supportive care per primary 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ly cleared for discharge with outpatient follow Consultation Date/Type/Reason Admit Date/Time Sep 27, 2018 at 03:41 Type of Consult Neurology Reason for Consultation ams Requesting Provider: PATRICIA LEVINE Date/Time of Note DATE: 10/03/18 TIME: 13:28 24 HR Interval Summary Free Text/Dictation Continues acute care s/p MRI brain Exam Vital Signs Vitals Vital Signs Date Temp Pulse Resp B/P (MAP) Pulse Ox O2 O2 Flow FiO2 Time Delivery Rate 10/03/18 97.6 74 18 180/74 97 11:57 (109) 09/30/18 Room Air 15:40 Intake and Output 10/02/18 10/02/18 10/03/18 1515:00 23:00 07:00 IntakeIntake Total 900 ml 350 ml BalanceBalance 900 ml 350 ml Exam PE: Gen Appearance: No Apparent Distress HEENT: Normocephalic Cardiovascular: Regular rate Abdomen: Soft Extremities: Dry NE: The patient was alert though nonverbal..able to follow commands.. Pupils were equal and reactive to light. There was no afferent pupillary defect. Visual black were normal. Funduscopic examination was limited. Extra-ocular movements were full. Ptosis was absent. There was no nystagmus. Facial sensation was normal. Face was symmetric with normal strength. Hearing was intact. Palate movements were normal. Neck strength was normal. There was normal tongue bulk and speed of movement. Tone was normal. Muscle bulk was normal. I did not see fasciculations. Arms and legs were symmetric. Vibration sensation was normal. Temperature and pinprick sensation was normal. Rapid alternating movements were normal. There was no dysmetria. There was no intention tremor. Gait was deferred due to bedrest. Arm and leg reflexes were symmetric. Delgado's sign was absent. Plantar responses were flexor. TOMY ZACARIAS Oct 03, 2018 13:31 CHRIS JONES NP Oct 03, 2018 14:31
--- NOTE | 2018-10-03 14:37 | PN ---
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 presents with worsening encepha lopathy - MRI shows no acute findings, Dr Kenney has already reset COMBINE MECHANIC shunt following study -Clear for DC per neurology -ARU evaluation Metabolic alkalosis likely secondary to contraction DMII: titrate basal/bolus insulin Hypokalemia - Replete electrolytes Hypertension: - Continue current meds Prophylaxis: Lovenox DC planning: Follow-up on ARU evaluation, alf if not a candidate for inpatient rehab Result Diagram: 10/01/18 0538 10/03/18518 Results 24hrs Laboratory Tests Test 10/02/18 16:48 10/02/18 20:44 10/03/18 05:19 10/03/18 08:01 Bedside Glucose 172 171 128 Sodium Level 141 Potassium Level 4.2 Chloride Level 101 Carbon Dioxide Level 34 H Anion Gap 6 Blood Urea Nitrogen 26 H Creatinine 0.43 L Est Glomerular Filtrat Rate mL/min Glucose Level 106 # Calcium Level 9.9 Test 10/03/18 11:43 Bedside Glucose 222 H Subjective 24 Hr Interval Summary Constitutional: disoriented Exam/Review of Systems Exam Vitals Vital Signs Date Temp Pulse Resp B/P (MAP) Pulse Ox O2 O2 Flow FiO2 Time Delivery Rate 10/03/18 73 12:01 10/03/18 97.6 18 180/74 97 11:57 (109) 09/30/18 Room Air 15:40 Intake and Output 10/02/18 10/02/18 10/03/18 1515:00 23:00 07:00 IntakeIntake Total 900 ml 350 ml BalanceBalance 900 ml 350 ml Psych: confusion Respiratory: clear to auscultation Cardiovascular: regular rate and rhythm Gastrointestinal: soft; No distended Musculoskeletal: nl extremities to inspection Results Results 24hrs Laboratory Tests Test 10/02/18 16:48 10/02/18 20:44 10/03/18 05:19 10/03/18 08:01 Bedside Glucose 172 171 128 Sodium Level 141 Potassium Level 4.2 Chloride Level 101 Carbon Dioxide Level 34 H Anion Gap 6 Blood Urea Nitrogen 26 H Creatinine 0.43 L Est Glomerular Filtrat Rate mL/min Glucose Level 106 # Calcium Level 9.9 Test 10/03/18 11:43 Bedside Glucose 222 H Medications Medication Current Medications Insulin Aspart (Novolog Insulin Pen) NOVOLOG *MILD* ALGORITHM WITH MEALS BEDTIME SC Last administered on 10/03/18 12:52; Admin Dose 3 UNIT; Start 09/27/18 at 08:00 Hydralazine HCl (Apresoline) 10 mg Q6H PRN IV ELEVATED BLOOD PRESSURE Last administered on 09/30/18 20:36; Admin Dose 10 MG; Start 09/27/18 at 04:30 Miscellaneous Information 1 ea NOTE XX ; Start 09/27/18 at 04:30 Glucose (Glutose) 15 gm Q15M PRN PO DECREASED GLUCOSE; Start 09/27/18 at 04:30 Glucose (Glutose) 22.5 gm Q15M PRN PO DECREASED GLUCOSE; Start 09/27/18 at 04:30 Dextrose (D50w Syringe) 25 ml Q15M PRN IV DECREASED GLUCOSE; Start 09/27/18 at 04:30 Dextrose (D50w Syringe) 50 ml Q15M PRN IV DECREASED GLUCOSE; Start 09/27/18 at 04:30 Glucagon (Glucagen) 1 mg Q15M PRN IM DECREASED GLUCOSE; Start 09/27/18 at 04:30 Glucose (Glutose) 15 gm Q15M PRN BUCCAL DECREASED GLUCOSE; Start 09/27/18 at 04:30 IV Flush (NS 3 ml) 3 ml PER PROTOCOL IV ; Start 09/27/18 at 06:30 Acetaminophen (Tylenol Tab) 650 mg Q6H PRN PO .PAIN 1-3 OR TEMP; Start 09/27/18 at 06:30 Amlodipine Besylate (Norvasc) 10 mg DAILY PO Last administered on 10/03/18at 08:22; Admin Dose 10 MG; Start 09/27/18 at 09:00 Folic Acid (Folic Acid) 0.8 mg DAILY PO Last administered on 10/03/18 08:20; Admin Dose 0.8 MG; Start 09/27/18 at 09:00 Lisinopril (Zestril) 40 mg DAILY PO Last administered on 10/03/18 08:22; Admin Dose 40 MG; Start 09/28/18 at 09:00 Insulin Glargine (Lantus) 12 units DAILY@0800 SC Last administered on 10/03/18 12:52; Admin Dose 12 UNITS; Start 10/01/18 at 08:00 Insulin Aspart (Novolog Insulin Pen) 6 unit WITH MEALS SC Last administered on 10/03/18 12:52; Admin Dose 6 UNIT; Start 10/01/18 at 12:00 Metformin HCl (Glucophage) 500 mg BID WITH MEALS PO Last administered on 10/03/18 08:21; Admin Dose 500 MG; Start 10/01/18 at 08:30 Linagliptin (Tradjenta) 5 mg DAILY PO Last administered on 10/03/18 08:21; Admin Dose 5 MG; Start 10/01/18 at 09:00 JACKSON BARBOZA Oct 03, 2018 14:37
[2018-10-03] MEDS: hydrALAzine 20 MG INJ IV PRN (14:38)
[2018-10-04] VITALS (9 sets, daily range): BP systolic 120–183; BP diastolic 63–82; PULSE 62–88; RESP 16–18
[2018-10-04] MEDS: INSULIN ASPART [NOVOLOG] 3 ML PEN SC SCH ×6 (08:00→17:45)
[2018-10-04] MEDS ORDERED: ENOXAPARIN 40 MG/0.4 ML SYG SC SCH (09:00)
[2018-10-04] MEDS: LISINOPRIL 20 MG TAB PO SCH (09:25)
[2018-10-04] MEDS: LINAGLIPTIN 5 MG TABLET PO SCH (09:25)
[2018-10-04] MEDS: metFORMIN 500 MG TAB PO SCH ×2 (09:25→17:32)
[2018-10-04] MEDS: AMLODIPINE 10 MG TAB PO SCH (09:26)
[2018-10-04] MEDS: FOLIC ACID 0.4 MG TAB PO SCH (09:26)
[2018-10-04] MEDS: BALSAM PERU/CASTOR OIL 60 GM TUBE TOP SCH (09:30)
[2018-10-04] MEDS: INSULIN GLARGINE [LANTus] (100 UNITS/ML) SYG SC SCH (09:35)
[2018-10-04] MEDS ORDERED: HYDR-3671 PO (10:47)
--- NOTE | 2018-10-04 10:49 | CONS ---
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 The clinical picture could be consistent w/ an acute on chronic encephalopathy. MRI brain is reassuringly without evidence of acute intracranial pathology. Focal motor seizure was additionally considered; however, EEG was normal.. TSH, FT4, and FT3 are low....c/w sick euthyroid syndrome. P: [place] as necessary Limit sedating medications where possible PT/OT/ST as necessary Other medical management and supportive care per primary 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ly cleared for d/c w/ outpatient follow up when medically able Consultation Date/Type/Reason Admit Date/Time Sep 27, 2018 at 03:41 Type of Consult Neurology Reason for Consultation ams Requesting Provider: PATRICIA LEVINE Date/Time of Note DATE: 10/04/18 TIME: 10:47 24 HR Interval Summary Free Text/Dictation Continues acute care Exam Vital Signs Vitals Vital Signs Date Temp Pulse Resp B/P (MAP) Pulse Ox O2 O2 Flow FiO2 Time Delivery Rate 10/04/18 64 08:01 10/04/18 98.3 17 183/82 99 07:37 (115) 09/30/18 Room Air 15:40 Intake and Output 10/03/18 10/03/18 10/04/18 1515:00 23:00 07:00 IntakeIntake Total 100 ml BalanceBalance 100 ml Exam PE: Gen Appearance: No Apparent Distress HEENT: Normocephalic Cardiovascular: Regular rate Abdomen: Soft Extremities: Dry NE: The patient was alert though nonverbal..able to follow commands.. Pupils were equal and reactive to light. There was no afferent pupillary defect. Visual black were normal. Funduscopic examination was limited. Extra-ocular movements were full. Ptosis was absent. There was no nystagmus. Facial sensation was normal. Face was symmetric with normal strength. Hearing was intact. Palate movements were normal. Neck strength was normal. There was normal tongue bulk and speed of movement. Tone was normal. Muscle bulk was normal. I did not see fasciculations. Arms and legs were symmetric. Vibration sensation was normal. Temperature and pinprick sensation was normal. Rapid alternating movements were normal. There was no dysmetria. There was no intention tremor. Gait was deferred due to bedrest. Arm and leg reflexes were symmetric. Delgado's sign was absent. Plantar responses were flexor. TOMY ZACARIAS Oct 04, 2018 10:49 CHRIS JONES NP Oct 04, 2018 14:43
--- NOTE | 2018-10-04 14:13 | PN ---
Date/Time of Note Date/Time of Note DATE: 10/04/18 TIME: 14:11 Assessment/Plan VTE Prophylaxis Risk score (from Ns)>0 risk: 7 SCD applied (from Ns): Yes Pharmacological prophylaxis: NA/contraindicated Pharm contraindication: surgical contra Lines/Catheters IV Catheter Type (from Nrsg): Saline Lock Urinary Cath still in place: No Assessment/Plan Hospital Course 78 yo female with dementia versus NPH s/p PHYSICIAN CODING SPECIALIST shunt and CVA presents with worsening encephalopathy - MRI shows no acute findings, Dr Kenney has already reset PHYSICIAN CODING SPECIALIST shunt following study -Clear for DC per neurology -Patient too low functioning for ARU, case manager specialist working on snf placement Metabolic alkalosis likely secondary to contraction DMII: titrate basal/bolus insulin Hypokalemia - Replete electrolytes Hypertension: - Continue current meds Prophylaxis: Lovenox DC planning: promotion manager arranging for snf placement Result Diagram: 10/01/18 0538 10/03/18518 Results 24hrs Laboratory Tests Test 10/03/18 17:54 10/03/18 20:58 10/04/18 09:22 10/04/18 12:03 Bedside Glucose 198 178 93 176 Subjective 24 Hr Interval Summary Subjective hx not possible: pt non-verbal Exam/Review of Systems Exam Vitals Vital Signs Date Temp Pulse Resp B/P (MAP) Pulse Ox O2 O2 Flow FiO2 Time Delivery Rate 10/04/18 80 12:01 10/04/18 97.9 18 155/74 97 11:47 (101) 09/30/18 Room Air 15:40 Intake and Output 10/03/18 10/03/18 10/04/18 1515:00 23:00 07:00 IntakeIntake Total 100 ml BalanceBalance 100 ml Constitutional: non-verbal Respiratory: clear to auscultation Cardiovascular: regular rate and rhythm Gastrointestinal: soft; No distended Musculoskeletal: nl extremities to inspection Results Results 24hrs Laboratory Tests Test 10/03/18 17:54 10/03/18 20:58 10/04/18 09:22 10/04/18 12:03 Bedside Glucose 198 178 93 176 Medications Medication Current Medications Insulin Aspart (Novolog Insulin Pen) NOVOLOG *MILD* ALGORITHM WITH MEALS BEDTIME SC Last administered on 10/04/18at 12:07; Admin Dose 1 UNIT; Start 09/27/18 at 08:00 Hydralazine HCl (Apresoline) 10 mg Q6H PRN IV ELEVATED BLOOD PRESSURE Last administered on 10/03/18at 14:38; Admin Dose 10 MG; Start 09/27/18 at 04:30 Miscellaneous Information 1 ea NOTE XX ; Start 09/27/18 at 04:30 Glucose (Glutose) 15 gm Q15M PRN PO DECREASED GLUCOSE; Start 09/27/18 at 04:30 Glucose (Glutose) 22.5 gm Q15M PRN PO DECREASED GLUCOSE; Start 09/27/18 at 04:30 Dextrose (D50w Syringe) 25 ml Q15M PRN IV DECREASED GLUCOSE; Start 09/27/18 at 04:30 Dextrose (D50w Syringe) 50 ml Q15M PRN IV DECREASED GLUCOSE; Start 09/27/18 at 04:30 Glucagon (Glucagen) 1 mg Q15M PRN IM DECREASED GLUCOSE; Start 09/27/18 at 04:30 Glucose (Glutose) 15 gm Q15M PRN BUCCAL DECREASED GLUCOSE; Start 09/27/18 at 04:30 IV Flush (NS 3 ml) 3 ml PER PROTOCOL IV ; Start 09/27/18 at 06:30 Acetaminophen (Tylenol Tab) 650 mg Q6H PRN PO .PAIN 1-3 OR TEMP; Start 09/27/18 at 06:30 Amlodipine Besylate (Norvasc) 10 mg DAILY PO Last administered on 10/04/18at 09:26; Admin Dose 10 MG; Start 09/27/18 at 09:00 Folic Acid (Folic Acid) 0.8 mg DAILY PO Last administered on 10/04/18at 09:26; Admin Dose 0.8 MG; Start 09/27/18 at 09:00 Lisinopril (Zestril) 40 mg DAILY PO Last administered on 10/04/18at 09:25; Admin Dose 40 MG; Start 09/28/18 at 09:00 Insulin Glargine (Lantus) 12 units DAILY@0800 SC Last administered on 10/04/18at 09:35; Admin Dose 12 UNITS; Start 10/01/18 at 08:00 Insulin Aspart (Novolog Insulin Pen) 6 unit WITH MEALS SC Last administered on 10/04/18at 12:07; Admin Dose 6 UNIT; Start 10/01/18 at 12:00 Metformin HCl (Glucophage) 500 mg BID WITH MEALS PO Last administered on 10/04/18 09:25; Admin Dose 500 MG; Start 10/01/18 at 08:30 Linagliptin (Tradjenta) 5 mg DAILY PO Last administered on 10/04/18 09:25; Admin Dose 5 MG; Start 10/01/18 at 09:00 Enoxaparin Sodium (Lovenox) 40 mg DAILY SC Last administered on 10/04/18 09:35; Admin Dose 40 MG; Start 10/04/18 at 09:00 Hydralazine HCl (Apresoline) 25 mg TID PO Last administered on 10/04/18 13:32; Admin Dose 25 MG; Start 10/03/18 at 21:00 JACKSON BARBOZA Oct 04, 2018 14:13
--- NOTE | 2018-10-04 16:25 | DS ---
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/p BOARD LINING MACHINE OPERATOR shunt and CVA presents with worsening encephalopathy - MRI shows no acute findings, Dr Kenney has already reset BOARD LINING MACHINE OPERATOR shunt following study -Clear for DC per neurology -Patient too low functioning for ARU, continuous pillowcase cutter has arranged half-way placement Metabolic alkalosis likely secondary to contraction DMII: titrate basal/bolus insulin Hypokalemia - Repleted Hypertension: - Continue current meds and have added hydralazine Patient Condition: Good Hospital Course Patient is a 78 yo female with progressive dementia versus possible NPH s/p BOARD LINING MACHINE OPERATOR shunt and CVA who presents with worsening encephalopathy. Patient was reportedly initially diagnosed with dementia but there was a question of possible NPH and patient had a BOARD LINING MACHINE OPERATOR shunt placed, according to neurosurgeon patient had no significant improvement but daughter did believe the patient improved this. Patient had been more confused and weak over the past several weeks prior to admission, no acute etiology for her altered mentation was detected, MRI showed no acute findings and patient had no evidence of infection. Patient was seen by neurology and neurosurgery did reset the BOARD LINING MACHINE OPERATOR shunt after MRI study. Patient's mentation continued to be poor and patient was too low functioning for acute inpatient rehab, continuous pillowcase cutter did arrange for half-way placement. On day of discharge patient's vitals, labs and physical exam are stable. Patient's functional status continues to be poor and likely has progressive dementia. Home Meds Active Scripts Hydralazine Hcl* (Hydralazine Hcl*) 25 Mg Tab, 25 MG PO TID, #60 TAB Prov:JACKSON BARBOZA 10/04/18 Reported Medications Cyanocobalamin (Vitamin B12) Unknown Strength Tab, PO, TAB 09/27/18 Cholecalciferol (Vitamin D3) (Vitamin D3) 500 Unit/5 Ml Liquid, 2000 UNIT PO DAILY 09/27/18 Acetaminophen* (Acetaminophen*) 500 MG Extra Strength Tablet, 500 MG PO Q4H PRN for PAIN AND OR ELEVATED TEMP, TAB 09/27/18 Multivitamins* (Theragran*) 1 Tab Tab, 1 TAB PO DAILY, TAB 09/27/18 Folic Acid* (Folic Acid*) 0.8 Mg Tablet, 0.8 MG PO DAILY, TAB 09/27/18 Lisinopril* (Lisinopril*) 40 Mg Tablet, 40 MG PO DAILY, #30 TAB 09/27/18 Amlodipine Besylate* (Amlodipine Besylate*) 10 Mg Tablet, 10 MG PO DAILY, #30 TAB 09/27/18 Metformin Hcl* (Metformin Hcl*) 500 Mg Tablet, 500 MG PO DAILY, #30 TAB 03/07/17 Discontinued Reported Medications Olmesartan Medoxomil (Benicar) 40 Mg Tablet, 40 MG PO DAILY, #30 TAB 03/07/17 Follow-up Plan [facility] Primary Care Provider Nitish Pastor Time spent on discharge: > 30 minutes JACKSON BARBOZA Oct 04, 2018 16:25
[2018-10-04] MEDS: hydrALAzine 20 MG INJ IV PRN (17:58)
[2018-10-04] MEDS ORDERED: LABETALOL HCL 20MG INJ IV ONE (19:00)
== END 2018-10-04 20:20 | DRG 71 ==
LOC: E/R 21:51 → 6WM 09-27 03:41
PROVIDERS: ADMIT Family Medicine; ATTEND Internal Medicine
DX: G93.49 Other encephalopathy (principal); E87.2 Acidosis; G91.2 (Idiopathic) normal pressure hydrocephalus; E44.0 Moderate protein-calorie malnutrition; Z68.1 Body mass index [BMI] 19.9 or less, adult; G91.9 Hydrocephalus, unspecified; E87.3 Alkalosis; G81.94 Hemiplegia, unspecified affecting left nondominant side; E87.6 Hypokalemia; I10 Essential (primary) hypertension; E86.0 Dehydration; F03.90 Unspecified dementia, unspecified severity, without behavioral disturbance, psychotic disturbance, mood disturbance, and anxiety; Z98.2 Presence of cerebrospinal fluid drainage device; E11.65 Type 2 diabetes mellitus with hyperglycemia; E07.81 Sick-euthyroid syndrome; Z86.73 Personal history of transient ischemic attack (TIA), and cerebral infarction without residual deficits
CPT/HCPCS: 36415; 36600; 70250; 70260; 70450; 70553; 71045; 76856; 80048; 80053; 80061; 80307; 81001; 81003; 82140; 82533; 82607; 82803; 82962; 83036; 83605; 83735; 84100; 84436; 84439; 84443; 84480; 84481; 84484; 85025; 85610; 85730; 87086; 92526; 92610; 93005; 93971; 95819; 96374; 97110; 97162; 97165; 97530; 97535; J0360; J0692; J1650; J1815; J2270; J3370; J3480; J7030; J7040